=== PATIENT | female | born 2005 | race Caucasian/White ===

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

== ENCOUNTER 2024-03-06 16:43 | Emergency (ER) | payer OTHER, SELFPAY ==
--- NOTE | 2024-03-06 16:53 | XR_ITS ---
PROCEDURE INFORMATION: Exam: XR Right Foot Exam date and time: 03/06/2024 5:19 PM Age: 18 years old Clinical indication: Injury or trauma; Fall; Blunt trauma; Foot; Right TECHNIQUE: Imaging protocol: Radiologic exam of the right foot. Views: 3 or more views. COMPARISON: CR ANKCMRT XR ankle RT min 3V 08/12/2018 11:36 AM FINDINGS: Bones/joints: No acute fracture. Hallux valgus alignment. Minimal calcaneal Achilles enthesopathy. Soft tissues: Dorsal hindfoot/midfoot soft tissue swelling. 2.5 mm thin linear hyperdense focus projecting over the plantar midfoot soft tissues. IMPRESSION: 1. No acute osseous findings. 2. Dorsal hindfoot/midfoot soft tissue swelling. 3. 2.5 mm thin linear hyperdense focus projecting over the plantar midfoot soft tissues, possibly representing a foreign body.
[2024-03-06 16:55] VITALS: BP 117/75; PULSE 82; RESP 16; TEMP 36.8; O2SAT 98; BMI 32.5
--- NOTE | 2024-03-06 16:55 | HMH.EDGENADL ---
Discharge Plan Disposition Patient Disposition: Home, Self-Care Condition: Good Prescriptions Prescriptions: No Action No Known Home Medications Referrals Follow up/Referrals: Mauricio (ED)Vidhya APRN [Primary Care Provider] - See instructions Activity Restrictions/Add. Instructions Additional Instructions/Restrictions: Ice, elevate and use walking boot when up. Please follow-up with your primary care physician for further instructions. Clinical Impressions Clinical Impression: Sprain of foot, right Stand Alone Forms Stand Alone Forms: Work/School Release Instructions Patient Instructions: Sprain Print Language Print Language: Sami Discharge ED Provider: Chad Robles General Adult HPI <Vidhya Martínez (ED), [employer] - Last Filed: 03/06/24 19:25> General Chief complaint: Extremity Injury, Lower Stated complaint: AO 03-06 @1600 fell and hurt right foot Time Seen by Provider: 03/06/24 16:48 History of Present Illness HPI narrative: This is a 18-year-old female who presents to the ED today for complaint of falling when she walked into work. She fell with her right foot underneath of her. She has pain with any movement of her right foot. No ankle pain. Related Data Home Medications ?Medication ?Instructions ?Recorded ?Confirmed No Known Home Medications 06/03/22 06/03/22 Allergies Allergy/AdvReac Type Severity Reaction Status Date / Time No Known Allergies Allergy Verified 03/06/24 17:07 PFSH <Vidhya Martínez (ED), [employer] - Last Filed: 03/06/24 19:25> PFS Disclaimer: The information contained in this section may have been updated after the patient was seen, as this information can be updated by other users. Medical History (Updated 03/06/24 @ 19:12 by Vidhya Martínez (ED), [employer]) Asthma Seasonal allergies Surgical History (Updated 01/24/22 @ 00:32 by Vanesa Ortiz RN) History of adenoidectomy History of tonsillectomy Social History (Updated 06/03/22 @ 09:05 by Elda Cullen) Smoking Status: Never smoker second hand exposure: No alcohol intake: never substance use type: denies use current occupational status: other Travel in the last 8 weeks: None household members: family housing: house number of children: 0 caffeine: Yes Other Medical History Have you received the Flu Vaccine for this season: No Have you received the Pneumonia Vaccine: No <Vidhya Kilkailey (ED), [employer] - Last Filed: 03/06/24 19:25> ROS Obtained: Yes Systems reviewed as appropriate & no additional complaints except as documented Constitutional Constitutional: Reports as per HPI Physical Exam <Vidhya Kilkailey (ED), [employer] - Last Filed: 03/06/24 19:25> General General appearance: alert and in no apparent distress Head Head exam: atraumatic and normocephalic Eye Eye exam: Present normal appearance, PERRL and EOMI ENT ENT exam: Present normal exam, normal oropharynx and mucous membranes moist Neck Neck exam: Present trachea midline Respiratory Respiratory exam: Present normal lung sounds bilaterally Cardiovascular Cardiovascular exam: Present regular rate, normal rhythm, normal heart sounds, +S1 and +S2 Extremities Exam Extremities exam: Present tenderness (Tenderness to right foot) and edema Neurological Exam Neurological exam: Present alert and oriented X3 Skin Skin exam: Present warm, dry, intact and other (Bruising beginning to occur on right foot) Medical Decision Making <Vidhya Martínez (ED), [employer] - Last Filed: 03/06/24 19:25> Medical Records Screening: Per USPSTF and CDC recommendations, given the prevalence of disease in our region, it is our hospital?s policy to screen for HIV and viral Hepatitis for all patients aged 18 and over and those with ongoing risk factors. Abhijeet Inquiry Pt receiving controlled substance: No Abhijeet was queried for this patient: No Vital Signs: 03/06/24 16:55 03/06/24 17:30 03/06/24 18:00 Temperature 98.2 F Temperature Source Oral Pulse Rate 60 63 Pulse Rate [Left] 82 Respiratory Rate 16 Blood Pressure 118/87 126/70 Blood Pressure [Right Arm] 117/75 Blood Pressure Mean 89 Blood Pressure Mean [Right Arm] 89 Blood Pressure Source Blood Pressure Source [Right Arm] Automatic Cuff Blood Pressure Position Blood Pressure Position [Right Arm] Sitting 02 Sat by Pulse Oximetry 98 99 93 L Oxygen Delivery Method Room Air Room Air 03/06/24 18:30 03/06/24 19:15 03/06/24 19:25 Temperature 97.9 F Temperature Source Oral Pulse Rate 67 82 72 Pulse Rate [Left] Respiratory Rate 18 Blood Pressure 124/79 122/74 120/72 Blood Pressure [Right Arm] Blood Pressure Mean Blood Pressure Mean [Right Arm] Blood Pressure Source Automatic Cuff Blood Pressure Source [Right Arm] Blood Pressure Position Supine Blood Pressure Position [Right Arm] 02 Sat by Pulse Oximetry 99 97 Oxygen Delivery Method Room Air Orders (Tests/Meds): ED MEDICATIONS Discontinued Medications Generic Name Dose Route Start Last Admin Trade Name Rand PRN Reason Stop Dose Admin Ibuprofen 800 mg 03/06/24 16:54 03/06/24 17:09 Ibuprofen 800 Mg Tablet PO 03/06/24 16:55 Not Given ONCE ONE Ibuprofen 800 mg 03/06/24 17:09 03/06/24 17:10 Ibuprofen 400 Mg Tablet PO 03/06/24 17:10 800 mg ONCE ONE Administration ORDERS Category Date Time Status XR foot RT min 3V Stat Exams 03/06/24 16:53 Completed Medical Decision Narrative: Insert review patient is a 18-year-old female presenting to the emergency department for evaluation of right foot pain after a fall. Patient is hemodynamically stable and nontoxic-appearing upon arrival, afebrile. Differential diagnosis includes strain sprain of foot. Workup will be conducted with x-ray of right foot. Initial inventions include ibuprofen. Initial workup reviewed by me is remarkable for sprain of foot. Imaging informally interpreted by me and remarkable for no acute fracture of right foot Formal imaging read remarkable for the formal read has not returned yet I will call patient with the formal read once it is back patient no longer wants to wait for this read. Upon repeat evaluation [patient's pain is improved. <Chad Robles MD - Last Filed: 03/06/24 21:24> Vital Signs: 03/06/24 16:55 03/06/24 17:30 03/06/24 18:00 Temperature 98.2 F Temperature Source Oral Pulse Rate 60 63 Pulse Rate [Left] 82 Respiratory Rate 16 Blood Pressure 118/87 126/70 Blood Pressure [Right Arm] 117/75 Blood Pressure Mean 89 Blood Pressure Mean [Right Arm] 89 Blood Pressure Source Blood Pressure Source [Right Arm] Automatic Cuff Blood Pressure Position Blood Pressure Position [Right Arm] Sitting 02 Sat by Pulse Oximetry 98 99 93 L Oxygen Delivery Method Room Air Room Air 03/06/24 18:30 03/06/24 19:15 03/06/24 19:25 Temperature 97.9 F Temperature Source Oral Pulse Rate 67 82 72 Pulse Rate [Left] Respiratory Rate 18 Blood Pressure 124/79 122/74 120/72 Blood Pressure [Right Arm] Blood Pressure Mean Blood Pressure Mean [Right Arm] Blood Pressure Source Automatic Cuff Blood Pressure Source [Right Arm] Blood Pressure Position Supine Blood Pressure Position [Right Arm] 02 Sat by Pulse Oximetry 99 97 Oxygen Delivery Method Room Air Orders (Tests/Meds): ED MEDICATIONS Discontinued Medications Generic Name Dose Route Start Last Admin Trade Name Rand PRN Reason Stop Dose Admin Ibuprofen 800 mg 03/06/24 16:54 03/06/24 17:09 Ibuprofen 800 Mg Tablet PO 03/06/24 16:55 Not Given ONCE ONE Ibuprofen 800 mg 03/06/24 17:09 03/06/24 17:10 Ibuprofen 400 Mg Tablet PO 03/06/24 17:10 800 mg ONCE ONE Administration ORDERS Category Date Time Status XR foot RT min 3V Stat Exams 03/06/24 16:53 Completed Medical Decision Narrative: Insert review patient is a 18-year-old female presenting to the emergency department for evaluation of right foot pain after a fall. Patient is hemodynamically stable and nontoxic-appearing upon arrival, afebrile. Differential diagnosis includes strain sprain of foot. Workup will be conducted with x-ray of right foot. Initial inventions include ibuprofen. Initial workup reviewed by me is remarkable for sprain of foot. Imaging informally interpreted by me and remarkable for no acute fracture of right foot Formal imaging read remarkable for the formal read has not returned yet I will call patient with the formal read once it is back patient no longer wants to wait for this read. Upon repeat evaluation patient's pain is improved. I was consulted by the ELIGIO, and we discussed the complexity of the problems being addressed. I approved the treatment and management plan for this patient's care in the Emergency Department, thus performing a substantive portion of the medical decision making. Chad Robles MD Critical Care <Vidhya Martínez (ED), [employer] - Last Filed: 03/06/24 19:25> Critical Care Time Critical Care Time: No
[2024-03-06] MEDS: IBUPROFEN 400 MG TABLET 800 MG PO (17:10)
[2024-03-06 17:30] VITALS: BP 118/87; PULSE 60; O2SAT 99
[2024-03-06 18:00] VITALS: BP 126/70; PULSE 63; O2SAT 93
[2024-03-06 18:30] VITALS: BP 124/79; PULSE 67; O2SAT 99
[2024-03-06 19:15] VITALS: BP 122/74; PULSE 82; O2SAT 97
[2024-03-06 19:25] VITALS: BP 120/72; PULSE 72; RESP 18; TEMP 36.6; O2SAT 100
== END 2024-03-06 19:33 | disposition home or self-care (01) ==
PROVIDERS: Emergency Provider Emergency Medicine; PCP Nurse Practitioner
DX: S93.601A Unspecified sprain of right foot, initial encounter (principal); M79.671 Pain in right foot; W01.0XXA Fall on same level from slipping, tripping and stumbling without subsequent striking against object, initial encounter; Y93.89 Activity, other specified; Y92.89 Other specified places as the place of occurrence of the external cause
CPT/HCPCS: 73630; 99283

== ENCOUNTER 2024-05-17 23:14 | Emergency (ER) | payer OTHER, SELFPAY ==
[2024-05-17 23:16] VITALS: BP 152/83; PULSE 96; RESP 16; TEMP 36.6; O2SAT 97; BMI 34.4
[2024-05-17 23:30] VITALS: BP 128/78; PULSE 87; O2SAT 97
--- NOTE | 2024-05-17 23:32 | HMH.EDGENADL ---
Discharge Plan Disposition Patient Disposition: Home, Self-Care Prescriptions Prescriptions: No Action No Known Home Medications Referrals Follow up/Referrals: Vidhya Martínez APRN [Primary Care Provider] - See instructions Activity Restrictions/Add. Instructions Additional Instructions/Restrictions: Your COVID and flu was negative, you likely have another virus. Your urine test was negative. Please take Zofran as needed for nausea and vomiting. Please follow-up with your primary care provider. Please return to the emergency department if you develop any new or worsening symptoms or become concerned for your health. Clinical Impressions Clinical Impression: Acute viral syndrome Print Language Print Language: Bulgarian Discharge ED Provider: Kana Lopez General Adult HPI General Chief complaint: Upper Respiratory Infection Stated complaint: congestion,pressure Time Seen by Provider: 05/17/24 23:32 Mode of Arrival: Ambulatory Source of Information: Patient Limitations: No Limitations Description of Symptoms (Recalled from ER Triage Doc. by RN): Patient reports pressure and congestion since yesterday. States she has been nauseous today ad felt like she was going to pass out . No medical problems at baseline. History of Present Illness HPI narrative: 18-year-old female without reported past medical history presents for flulike symptoms since yesterday. She has felt nauseous and has felt presyncopal a few times. She reports she could be . She also reports cough congestion headache fever etc. Related Data Home Medications ?Medication ?Instructions ?Recorded ?Confirmed No Known Home Medications 06/03/22 06/03/22 Allergies Allergy/AdvReac Type Severity Reaction Status Date / Time No Known Allergies Allergy Verified 03/06/24 17:07 [facility] Disclaimer: The information contained in this section may have been updated after the patient was seen, as this information can be updated by other users. Medical History (Updated 05/18/24 @ 00:39 by Kana Lopez MD) Asthma Seasonal allergies Surgical History (Updated 01/24/22 @ 00:32 by Vanesa Ortiz RN) History of adenoidectomy History of tonsillectomy Social History (Updated 06/03/22 @ 09:05 by Elda Cullen) Smoking Status: Never smoker second hand exposure: No alcohol intake: never substance use type: denies use current occupational status: other Travel in the last 8 weeks: None household members: family housing: house number of children: 0 caffeine: Yes Have you lived/traveled outside [place] in past 30 days?: No Contact w/someone who lives/traveled outside [place] past 30 days?: No Exposure to someone with infectious disease in past 14 days?: Yes Do you have a fever (greater than 100.4 F or 38 C)?: No Have you tested positive for COVID-19: No Exposed to someone with COVID-19 in past 14 days?: Yes Do you have a sore throat?: No Do you have a cough?: No Do you have any weakness?: No Do you have any diarrhea?: No Are you experiencing any unusual bleeding?: No Do you have any muscle aches/pain?: No Do you have any abdominal pain?: No Are you experiencing loss of taste or smell?: No Other Medical History Have you received the Flu Vaccine for this season: No Have you received the Pneumonia Vaccine: No ROS Obtained: Yes All systems reviewed & no additional complaints except as documented Physical Exam General General appearance: alert and in no apparent distress Head Head exam: atraumatic and normocephalic Eye Eye exam: Present normal appearance, PERRL and EOMI ENT ENT exam: Present normal oropharynx and normal external ear exam Neck Neck exam: Present normal inspection and full ROM Chest Chest inspection: Present normal inspection and symmetric chest wall rise; Absent tenderness Respiratory Respiratory exam: Present normal lung sounds bilaterally; Absent respiratory distress Cardiovascular Cardiovascular exam: Present regular rate and normal rhythm Abdominal Exam Abdominal exam: Present soft; Absent distention, tenderness or guarding Extremities Exam Extremities exam: Present normal inspection; Absent edema or joint swelling Back Exam Back exam: Present normal inspection; Absent tenderness Neurological Exam Neurological exam: Present alert and oriented X3; Absent motor sensory deficit Psychiatric Psychiatric exam: Present normal affect and normal mood Skin Skin exam: Present warm, dry and normal color Lymphatic Lymphatic Findings: no adenopathy Medical Decision Making Medical Records Medical records reviewed: Yes I reviewed the patient's medical records. Screening: Per USPSTF and CDC recommendations, given the prevalence of disease in our region, it is our hospital?s policy to screen for HIV and viral Hepatitis for all patients aged 18 and over and those with ongoing risk factors. Abhijeet Inquiry Pt receiving controlled substance: No Abhijeet was queried for this patient: No Vital Signs: 05/17/24 23:16 05/17/24 23:30 05/18/24 00:32 Temperature 97.9 F Temperature Source Oral Pulse Rate 87 83 Pulse Rate [Left Radial] 96 H Respiratory Rate 16 Blood Pressure 128/78 125/82 Blood Pressure [Right Arm] 152/83 H Blood Pressure Mean [Right Arm] 106 Blood Pressure Source [Right Arm] Automatic Cuff Blood Pressure Position [Right Arm] Supine 02 Sat by Pulse Oximetry 97 97 99 Oxygen Delivery Method Room Air 05/18/24 00:40 Temperature 98.2 F Temperature Source Pulse Rate 81 Pulse Rate [Left Radial] Respiratory Rate 16 Blood Pressure 125/82 Blood Pressure [Right Arm] Blood Pressure Mean [Right Arm] Blood Pressure Source [Right Arm] Blood Pressure Position [Right Arm] 02 Sat by Pulse Oximetry Oxygen Delivery Method Lab Data Lab results reviewed: Yes I reviewed the patient's lab results. Lab Results 05/17/24 23:32: SARS-CoV-2 (PCR) Not detected, Influenza A Untype (PCR) Not detected, Influenza Type B (PCR) Not detected 05/17/24 23:58: Urine HCG, Qual Negative Orders (Tests/Meds): ORDERS Category Date Time Status Rapid PCR Covid and Flu A/B Stat Lab 05/17/24 23:32 Completed Urine , HCG Qual. Stat Lab 05/17/24 23:58 Completed Medical Decision Narrative: 18-year-old female without significant past medical history presents for flulike symptoms. Also reports she could be . Differential diagnosis includes but limited to flu, URI, tension headache, gastroenteritis. Patient was swabbed for flu and urinalysis was obtained to assess for . On reassessment viral swab is negative as well as urine test. Patient may have gastroenteritis or other viral illness. Patient was discharged in stable condition with prescription for Zofran. Procedures Risk/Benefits of Procedure(s) Were Explained: Yes Critical Care Critical Care Time Critical Care Time: No
[2024-05-17 23:54] LABS: Coronavirus 19, PCR Not Detected (NotDetected); Influenza A, PCR Not Detected (NotDetected); Influenza B, PCR Not Detected (NotDetected)
[2024-05-18 00:14] LABS: Urine Pregnancy, HCG Qual. Negative (Negative)
[2024-05-18 00:32] VITALS: BP 125/82; PULSE 83; O2SAT 99
[2024-05-18 00:40] VITALS: BP 125/82; PULSE 81; RESP 16; TEMP 36.8; O2SAT 99
== END 2024-05-18 00:43 | disposition home or self-care (01) ==
PROVIDERS: Emergency Provider Emergency Medicine; PCP Nurse Practitioner
DX: B34.9 Viral infection, unspecified (principal); R09.81 Nasal congestion; R11.0 Nausea; R55 Syncope and collapse; R05.9 Cough, unspecified; R51.9 Headache, unspecified; R50.9 Fever, unspecified
CPT/HCPCS: 81025; 87636; 99283

== ENCOUNTER 2024-06-07 14:55 | Emergency (ER) | payer OTHER, SELFPAY ==
[2024-06-07 15:10] VITALS: BP 116/74; PULSE 86; RESP 17; TEMP 36.9; O2SAT 99; BMI 38.7
--- NOTE | 2024-06-07 15:26 | EXP.UTC ---
Discharge Plan Disposition Patient Disposition: Home, Self-Care Condition: Good Prescriptions Prescriptions: No Action No Known Home Medications Referrals Follow up/Referrals: Vidhya Martínez APRN [Primary Care Provider] - See instructions Activity Restrictions/Add. Instructions Additional Instructions/Restrictions: GO home lay down and sleep off remainder of migraine headache No Motrin for the next 8 hours if you need something take Tylenol Follow up with your Family Doctor Follow up with OBGYN for further evaluation due to irregular periods Straight to ER if any life threatening symptoms Clinical Impressions Clinical Impression: Headache, migraine Stand Alone Forms Stand Alone Forms: Work/School Release Instructions Patient Instructions: Migraine -- Adult Print Language Print Language: Romansh Discharge ED Provider: Arlin Haley Lucy [facility] HPI General Stated complaint: nausea, headache Mode of Arrival: Ambulatory Source of Information: Patient Limitations: No Limitations Time Seen by Provider: 06/07/24 15:26 Description of Symptoms (Recalled from Triage Doc. by RN): PATIENT C/O HEADACHE WITH NAUSEA THAT STARTED THIS MORNING HEENT Symptoms (Recalled from RN notes): Yes Resp Symptoms (Recalled from RN notes): No Skin Symptoms (Recalled from RN notes): No MS Symptoms (Recalled from RN notes): No Functional Status (Recalled from RN notes): WNL History of Present Illness Provider Complaint: Patient states that she has a hx of migraine headaches States that she woke up this morning with nausea and dry heaving and it brought on a migraine headache States that as the day went on the migraine continued with the nausea so she came in Related Data Home Medications ?Medication ?Instructions ?Recorded ?Confirmed No Known Home Medications 06/03/22 06/03/22 Allergies Allergy/AdvReac Type Severity Reaction Status Date / Time No Known Allergies Allergy Verified 03/06/24 17:07 Worker's Comp Is this a Worker's Comp case?: No [facility] Disclaimer: The information contained in this section may have been updated after the patient was seen, as this information can be updated by other users. Medical History (Updated 06/07/24 @ 15:35 by Arlin Haley APRN) Asthma Seasonal allergies Surgical History (Updated 01/24/22 @ 00:32 by Vanesa Ortiz RN) History of adenoidectomy History of tonsillectomy Social History (Updated 06/03/22 @ 09:05 by Elda Cullen) Smoking Status: Never smoker second hand exposure: No alcohol intake: never substance use type: denies use current occupational status: other Travel in the last 8 weeks: None household members: family housing: house number of children: 0 caffeine: Yes Have you lived/traveled outside [place] in past 30 days?: No Contact w/someone who lives/traveled outside [place] past 30 days?: No Exposure to someone with infectious disease in past 14 days?: No Do you have a fever (greater than 100.4 F or 38 C)?: No Have you tested positive for COVID-19: No Exposed to someone with COVID-19 in past 14 days?: No Do you have a sore throat?: No Do you have a cough?: No Do you have any weakness?: No Do you have any diarrhea?: No Are you experiencing any unusual bleeding?: No Do you have any muscle aches/pain?: No Do you have any abdominal pain?: No Are you experiencing loss of taste or smell?: No ROS Obtained: Yes All systems reviewed & no additional complaints except as documented and Yes Systems reviewed as appropriate & no additional complaints except as documented Constitutional Constitutional: Reports system reviewed and no additional complaints, except as documented, Reports as per HPI and Reports headache(s) Eyes Eyes: Reports system reviewed and no additional complaints, except as documented, Reports as per HPI, Denies blurry vision, Denies eye discharge, Denies floaters, Denies irritation, Denies loss of vision and Denies photophobia ENT Ears, Nose, Mouth, and Throat: Reports system reviewed and no additional complaints, except as documented, Reports as per HPI and Reports headache(s) Cardiovascular Cardiovascular: Reports system reviewed and no additional complaints, except as documented and Reports as per HPI Respiratory Respiratory: Reports system reviewed and no additional complaints, except as documented and Reports as per HPI Gastrointestinal Gastrointestingal: Reports system reviewed and no additional complaints, except as documented, as per HPI and nausea; Denies abdominal pain, cramping, diarrhea or vomiting Musculoskeletal Musculoskeletal: Reports system reviewed and no additional complaints, except as documented and Reports as per HPI Neurologic Neurologic: Reports headache(s) and Denies loss of vision Physical Exam General General appearance: alert and in no apparent distress Eye Eye exam: Present normal appearance, PERRL and EOMI ENT ENT exam: Present normal exam, normal oropharynx, mucous membranes moist and TM's normal bilaterally Respiratory Respiratory exam: Present normal lung sounds bilaterally; Absent respiratory distress or wheezes Cardiovascular Cardiovascular exam: Present regular rate, normal rhythm and normal heart sounds Abdominal Exam Abdominal exam: Present soft and normal bowel sounds; Absent distention or tenderness Neurological Exam Neurological exam: Present alert, oriented X3 and normal gait Medical Decision Making Medical Records Screening: Per USPSTF and CDC recommendations, given the prevalence of disease in our region, it is our hospital?s policy to screen for HIV and viral Hepatitis for all patients aged 18 and over and those with ongoing risk factors. Abhijeet Inquiry Pt receiving controlled substance: No Abhijeet was queried for this patient: No Vital Signs: 06/07/24 15:10 Temperature 98.4 F Temperature Source Oral Pulse Rate [Left Brachial] 86 Respiratory Rate 17 Blood Pressure [Left Arm] 116/74 Blood Pressure Mean [Left Arm] 88 Blood Pressure Source [Left Arm] Automatic Cuff Blood Pressure Position [Left Arm] Sitting 02 Sat by Pulse Oximetry 99 Oxygen Delivery Method Room Air Lab Data Lab results reviewed: Yes I reviewed the patient's lab results. Medical Decision Narrative: Reports migraine is starting to ease off will dc home with strict return precautions
[2024-06-07 15:28] LABS: UTC Pregnancy Test, Urine Negative (Negative)
[2024-06-07] MEDS: KETOROLAC 60MG/2ML VIAL 60 MG IM (15:46)
[2024-06-07] MEDS: ONDANSETRON 4MG ODT 4 MG SL (15:46)
[2024-06-07] MEDS: diphenhydrAMINE 50MG/ML VIAL 25 MG IM (15:46)
[2024-06-07 15:52] VITALS: BP 116/74; PULSE 86; RESP 17; TEMP 36.9; O2SAT 99
== END 2024-06-07 15:55 | disposition home or self-care (01) ==
PROVIDERS: Emergency Provider Nurse Practitioner; PCP Nurse Practitioner
DX: G43.909 Migraine, unspecified, not intractable, without status migrainosus (principal)
CPT/HCPCS: 81025; 99213; G0381; J1200; J1885; Q0162

== ENCOUNTER 2024-06-08 13:39 | Emergency (ER) | payer OTHER, SELFPAY ==
[2024-06-08 14:20] VITALS: BP 127/86; PULSE 90; RESP 18; TEMP 36.8; O2SAT 98; BMI 41.1
--- NOTE | 2024-06-08 14:40 | ED_ITS ---
Discharge Plan Disposition Patient Disposition: Home, Self-Care Condition: Good Prescriptions Prescriptions: New ondansetron 4 mg tablet,disintegrating 4 mg PO Q8H PRN (Reason: nausea and vomiting) Qty: 12 0RF Referrals Follow up/Referrals: Vidhya Martínez APRN [Primary Care Provider] - See instructions Activity Restrictions/Add. Instructions Additional Instructions/Restrictions: Drink extra fluids with and between meals. If you have difficulty drinking, try very small amounts of water or suck on ice chips. ? Avoid fruit juices, as these do not replace minerals and can actually increase diarrhea. ? Children and adults can use sports drinks to replenish electrolytes. Younger children and infants should use products formulated for children, like oral rehydration solutions. ? Eat food in small amounts and let your stomach recover. ? Get lots of rest. You may feel tired or weak. ? No greasy or fried foods for the next 24-48 hours BRAT diet Bananas Rice Apples and [place] ? Make sure to drink plenty of liquids ? Return if needed ? Straight to ER if any life threatening symptoms ? Zofran as prescribed ? Follow up with family doctor in the next 48-72 hours if no improvement or any worsening of symptoms Make sure to follow up with your Family Doctor if your stomach upset continues Clinical Impressions Clinical Impression: Stomach upset Stand Alone Forms Stand Alone Forms: Work/School Release Instructions Patient Instructions: Ondansetron, DI for Dyspepsia Print Language Print Language: Hungarian Discharge ED Provider: Arlin Haley [facility] [place] General Stated complaint: nausea, abd cramps Mode of Arrival: Ambulatory Source of Information: Patient Limitations: No Limitations Time Seen by Provider: 06/08/24 14:41 Description of Symptoms (Recalled from Triage Doc. by RN): PATIENT C/O STOMACH PAIN AND NAUSEA SINCE YESTERDAY MORNING HEENT Symptoms (Recalled from RN notes): No Resp Symptoms (Recalled from RN notes): No Skin Symptoms (Recalled from RN notes): Yes MS Symptoms (Recalled from RN notes): No Functional Status (Recalled from RN notes): WNL History of Present Illness Provider Complaint: Patient states that yesterday she had a migraine with some nausea and she came in and got a couple shots and some nausea medication and it helped States that after the nausea medication wore off the nausea returned but the migraine is still gone, States that her stomach feels upset like she is going to vomit or have diarrhea but she hasnt and was having nausea this morning and was unable to go to work needing a work note, States that she did eat at the [employer] house night before last and woke up in the middle of the night with dry heaves is what brought on her migraine yesterday not sure if she may have eat something bad or what Denies fever, Last BM yesterday Related Data Previous Rx's ?Medication ?Instructions ?Recorded ondansetron 4 mg disintegrating 4 mg PO Q8H PRN nausea and 06/08/24 tablet vomiting #12 tabs Allergies Allergy/AdvReac Type Severity Reaction Status Date / Time No Known Allergies Allergy Verified 03/06/24 17:07 Worker's Comp Is this a Worker's Comp case?: No [facility] Disclaimer: The information contained in this section may have been updated after the patient was seen, as this information can be updated by other users. Medical History (Updated 06/08/24 @ 14:51 by Arlin Haley APRN) Asthma Seasonal allergies Surgical History (Updated 01/24/22 @ 00:32 by Vanesa Ortiz RN) History of adenoidectomy History of tonsillectomy Social History (Updated 06/03/22 @ 09:05 by Elda Cullen) Smoking Status: Never smoker second hand exposure: No alcohol intake: never substance use type: denies use current occupational status: other Travel in the last 8 weeks: None household members: family housing: house number of children: 0 caffeine: Yes Have you lived/traveled outside US in past 30 days?: No Contact w/someone who lives/traveled outside [place] past 30 days?: No Exposure to someone with infectious disease in past 14 days?: No Do you have a fever (greater than 100.4 F or 38 C)?: No Have you tested positive for COVID-19: No Exposed to someone with COVID-19 in past 14 days?: No Do you have a sore throat?: No Do you have a cough?: No Do you have any weakness?: No Do you have any diarrhea?: No Are you experiencing any unusual bleeding?: No Do you have any muscle aches/pain?: No Do you have any abdominal pain?: Yes Are you experiencing loss of taste or smell?: No ROS Obtained: Yes All systems reviewed & no additional complaints except as documented and Yes Systems reviewed as appropriate & no additional complaints except as documented Constitutional Constitutional: Reports system reviewed and no additional complaints, except as documented, Reports as per HPI, Denies body ache, Denies chills and Denies fever(s) Eyes Eyes: Reports system reviewed and no additional complaints, except as documented and Reports as per HPI ENT Ears, Nose, Mouth, and Throat: Reports system reviewed and no additional complaints, except as documented and Reports as per HPI Cardiovascular Cardiovascular: Reports system reviewed and no additional complaints, except as documented and Reports as per HPI Respiratory Respiratory: Reports system reviewed and no additional complaints, except as documented and Reports as per HPI Gastrointestinal Gastrointestingal: Reports system reviewed and no additional complaints, except as documented, as per HPI, cramping and nausea; Denies belching, coffee ground emesis, constipation, diarrhea, early satiety, heartburn, hematemesis, hematochezia, loose stools, reflux or vomiting Genitourinary Female Genitourinary: Reports system reviewed and no additional complaints, exc ept as documented and Reports as per HPI Physical Exam General General appearance: alert and in no apparent distress Respiratory Respiratory exam: Present normal lung sounds bilaterally; Absent respiratory distress or wheezes Cardiovascular Cardiovascular exam: Present regular rate, normal rhythm and normal heart sounds Abdominal Exam Abdominal exam: Present soft and normal bowel sounds; Absent distention, tenderness, guarding or rebound Neurological Exam Neurological exam: Present alert, oriented X3 and normal gait Medical Decision Making Medical Records Screening: Per USPSTF and CDC recommendations, given the prevalence of disease in our region, it is our hospital?s policy to screen for HIV and viral Hepatitis for all patients aged 18 and over and those with ongoing risk factors. Abhijeet Inquiry Pt receiving controlled substance: No Abhijeet was queried for this patient: No Vital Signs: 06/08/24 14:20 Temperature 98.2 F Temperature Source Oral Pulse Rate [Left Brachial] 90 Respiratory Rate 18 Blood Pressure [Left Arm] 127/86 Blood Pressure Mean [Left Arm] 99 Blood Pressure Source [Left Arm] Automatic Cuff Blood Pressure Position [Left Arm] Sitting 02 Sat by Pulse Oximetry 98 Oxygen Delivery Method Room Air Medical Decision Narrative: Urine preg done yesterday and was negative Patient reports has appointment with OBGYN tomorrow, Denies constipation, States that she has been having upset stoma ch with cramping like she is going to vomit or have diarrhea but hasnt had either Discussed with patient that we could transfer her to the ED for further work up and evaluation if she is having stomach pain and she declined States that after she had the medication for nausea in here yesterday her stomach felt better if she could get some of that she would prefer to follow up with her PCP if she doesnt feel any better in a day or so
[2024-06-08 14:53] VITALS: BP 127/86; PULSE 90; RESP 18; TEMP 36.8; O2SAT 98
== END 2024-06-08 14:55 | disposition home or self-care (01) ==
PROVIDERS: Emergency Provider Nurse Practitioner; PCP Nurse Practitioner
DX: K30 Functional dyspepsia (principal)
CPT/HCPCS: 99212; G0381

== ENCOUNTER 2024-06-14 17:21 | Emergency (ER) | payer OTHER, SELFPAY ==
[2024-06-14 17:40] VITALS: BP 132/75; PULSE 77; RESP 16; TEMP 37.1; O2SAT 97; BMI 36.3
--- NOTE | 2024-06-14 18:13 | ED_ITS ---
Discharge Plan Disposition Patient Disposition: Home, Self-Care Prescriptions Prescriptions: New ondansetron 4 mg tablet,disintegrating 4 mg PO Q6H PRN (Reason: nausea and vomiting) Qty: 10 0RF esomeprazole magnesium 20 mg capsule,delayed release(DR/EC) 20 mg PO DAILY 28 Days Qty: 28 0RF No Action ondansetron 4 mg tablet,disintegrating 4 mg PO Q8H PRN (Reason: nausea and vomiting) Qty: 12 0RF Referrals Follow up/Referrals: Vidhya Martínze APRN [Primary Care Provider] - See instructions Activity Restrictions/Add. Instructions Additional Instructions/Restrictions: Call your family doctor to establish care for this visit to the emergency department and schedule follow-up within 48 hours to ensure improvement. If you have any worsening of your condition or any other concerning signs or symptoms, return to the emergency department or your primary care doctor for further evaluation. Acid medication each night. See your family doctor for refills Clinical Impressions Clinical Impression: Abdominal pain, Gastritis Instructions Patient Instructions: DI for Acute Abdominal Pain Print Language Print Language: Malay Discharge ED Provider: Chad Robles General Adult HPI General Chief complaint: Abdominal Pain Stated complaint: vomiting abd pain persistant more than a wk Time Seen by Provider: 06/14/24 17:42 Mode of Arrival: Ambulatory Source of Information: Patient Limitations: No Limitations Description of Symptoms (Recalled from ER Triage Doc. by RN): c/o ABD pain x1wk and N/V x2days History of Present Illness HPI narrative: Please note that above description of symptoms, in this electronic medical record under categorization of recalled from ER triage doctor by RN are reflective of an initial nursing assessment, however, is not reflective of my full history and physical exam that was personally taken and clarified. Consequentially, this preceding description of symptoms, which may include the patient's categorized chief complaint in the EMR, do not reflect my personal clinical impression, and the ultimate description of history of present illness and patient stated complaints should be deferred to this section of the note. Unless stated otherwise or congruent with this section of the note, additional signs, symptoms, or incongruence should be interpreted as inaccurate with my clinical impression. Related Data Previous Rx's ?Medication ?Instructions ?Recorded ondansetron 4 mg disintegrating 4 mg PO Q8H PRN nausea and 06/08/24 tablet vomiting #12 tabs esomeprazole magnesium 20 mg 20 mg PO DAILY 28 days #28 caps 06/14/24 capsule,delayed release ondansetron 4 mg disintegrating 4 mg PO Q6H PRN nausea and 06/14/24 tablet vomiting #10 tabs Allergies Allergy/AdvReac Type Severity Reaction Status Date / Time No Known Allergies Allergy Verified 03/06/24 17:07 [facility] Disclaimer: The information contained in this section may have been updated after the patient was seen, as this information can be updated by other users. Medical History (Updated 06/14/24 @ 20:06 by Chad Robles MD) Asthma Seasonal allergies Surgical History (Updated 01/24/22 @ 00:32 by Vanesa Ortiz RN) History of adenoidectomy History of tonsillectomy Social History (Updated 06/03/22 @ 09:05 by Elda Cullen) Smoking Status: Never smoker second hand exposure: No alcohol intake: never substance use type: denies use current occupational status: other Travel in the last 8 weeks: None household members: family housing: house number of children: 0 caffeine: Yes Have you lived/traveled outside US in past 30 days?: No Contact w/someone who lives/traveled outside US past 30 days?: No Exposure to someone with infectious disease in past 14 days?: No Do you have a fever (greater than 100.4 F or 38 C)?: No Have you tested positive for COVID-19: No Exposed to someone with COVID-19 in past 14 days?: No Do you have a sore throat?: No Do you have a cough?: No Do you have any weakness?: No Do you have any diarrhea?: No Are you experiencing any unusual bleeding?: No Do you have any muscle aches/pain?: No Do you have any abdominal pain?: Yes Are you experiencing loss of taste or smell?: No Other Medical History Have you received the Flu Vaccine for this season: No Have you received the Pneumonia Vaccine: No ROS Obtained: Yes All systems reviewed & no additional complaints except as documented Physical Exam General General appearance: alert, in no apparent distress and obese Comment: Very clinically well, speaking in full sentences, joking around. Head Head exam: atraumatic and normocephalic Eye Eye exam: Present normal appearance, PERRL and EOMI Neck Neck exam: Present normal inspection, full ROM and trachea midline Respiratory Respiratory exam: Absent respiratory distress, wheezes, stridor, accessory muscle use or prolonged expiratory phase Cardiovascular Cardiovascular exam: Present other (Pulses equal symmetric in upper and lower extremities) Abdominal Exam Abdominal exam: Present soft; Absent distention, tenderness, guarding, rebound, rigidity or pulsatile mass Extremities Exam Extremities exam: Absent edema Neurological Exam Neurological exam: Present alert, oriented X3 and CN II-XII intact; Absent motor sensory deficit Skin Skin exam: Present warm and dry; Absent diaphoresis or erythema Medical Decision Making Medical Records Medical records reviewed: Yes I reviewed the patient's medical records. Screening: Per USPSTF and CDC recommendations, given the prevalence of disease in our region, it is our hospital?s policy to screen for HIV and viral Hepatitis for all patients aged 18 and over and those with ongoing risk factors. Abhijeet Inquiry Pt receiving controlled substance: No Abhijeet was queried for this patient: No Vital Signs: 06/14/24 17:40 Temperature 98.7 F Temperature Source Oral Pulse Rate [Right Radial] 77 Respiratory Rate 16 Blood Pressure [Right Arm] 132/75 Blood Pressure Mean [Right Arm] 94 02 Sat by Pulse Oximetry 97 Oxygen Delivery Method Room Air Lab Data Lab Results 06/14/24 18:29: WBC 8.8, RBC 5.24, Hgb 14.7, Hct 44.9, MCV 85.7, MCH 28.1, MCHC 32.7, RDW 13.5, Plt Count 247, MPV 11.3 H, Neut % (Auto) 60.2, Lymph % (Auto) 29.6, [place] % (Auto) 7.2, Eos % (Auto) 2.0, Baso % (Auto) 0.5, Neut # (Auto) 5.3, Lymph # (Auto) 2.6, [place] # (Auto) 0.6, Eos # (Auto) 0.2, Baso # (Auto) 0.0, Sodium 141, Potassium 4.2, Chloride 104, Carbon Dioxide 29, Anion Gap 12.2, BUN 17, Creatinine 0.80, Estimated Creat Clear 188, Estimated GFR 92, Est GFR ( Amer) 112, Glucose 68 L, Calcium 9.9, Magnesium 1.8, Total Bilirubin 0.7, AST 34, ALT 32, Alkaline Phosphatase 72, Total Protein 8.3 H, Albumin 4.8, Globulin 3.5 H, Albumin/Globulin Ratio 1.4, Lipase 85, HCG, Quant < 2 06/14/24 18:46: Urine Color Yellow, Urine Appearance Clear, Urine pH 7.5, Ur Specific [place] 1.020, Urine Protein Negative, Urine Glucose (UA) Negative, Urine Ketones Negative, Urine Blood Trace-i, Urine Nitrate Negative, Urine Bilirubin Negative, Urine Urobilinogen 0.2, Ur Leukocyte Esterase Negative, Urine RBC Occasional, Urine WBC None, Ur Squamous Epith Cells Occasional, Urine Bacteria Trace 06/14/24 18:29 06/14/24 18:29 Orders (Tests/Meds): ED MEDICATIONS Generic Name Dose Route Start Last Admin Trade Name Freq PRN Reason Stop Dose Admin Sodium Chloride 10 ml 06/14/24 17:58 Sodium Chloride 0.9% 10ml Vial IV 07/14/24 17:57 NEEDED PRN dilute protonix Discontinued Medications Generic Name Dose Route Start Last Admin Trade Name Freq PRN Reason Stop Dose Admin Belladonna Alkaloids 60 ml 06/14/24 17:58 06/14/24 18:52 Belladonna Alkaloids 60 Ml Ml PO 06/14/24 17:59 60 ml ONCE ONE Administration Ondansetron HCl 4 mg 06/14/24 18:14 06/14/24 18:52 Ondansetron 4mg/2ml Vial IV 06/14/24 18:15 4 mg ONCE ONE Administration Pantoprazole Sodium 40 mg 06/14/24 17:58 06/14/24 18:52 Pantoprazole 40mg Vial IV 06/14/24 17:59 40 mg ONCE ONE Administration ORDERS Category Date Time Status POCUS Point of Care (ER Only) Stat Exams 06/14/24 17:59 Ordered Complete Blood Count Auto Diff Stat Lab 06/14/24 18:29 Completed Comprehensive Metabolic Panel Stat Lab 06/14/24 18:29 Completed HCG,Quantitative Stat Lab 06/14/24 18:29 Completed Lipase Stat Lab 06/14/24 18:29 Completed Magnesium Stat Lab 06/14/24 18:29 Completed Urinalysis and Microscopic Stat Lab 06/14/24 18:46 Completed Medical Decision Narrative: 18-year-old female presenting with abdominal discomfort and vomiting. States that she started with abdominal discomfort and nausea on the 13th, 7 days prior to this. States that she started having epigastric burning that was worse when she woke up on the , the next day. States that she was feeling generally unwell with p.o. intake. States she is able to tolerate liquids, but solids leave her feeling nauseated. Today, earlier in the day on 06/14, she states that she had 2 episodes of nonbloody, nonbilious vomiting associated with p.o. intake. Came in for further evaluation. No fevers or chills, diarrhea, constipation, vaginal discharge or bleeding, or any other concerns. Patient states that she has not had a menstrual period since December 2023, there is a chance she may be , but unsure with all of her irregular menstrual periods. History was obtained via conversation with patient. On arrival, patient hemodynamically stable, alert, oriented x4, appropriate, GCS 15, moving all extremities spontaneously, pupils equal and reactive to light. Full physical exam performed and significant for obese female, very clinically well and in no acute distress. Speaking in full sentences, joking, laughing. Not actively retching, abdomen is soft, nontender, nondistended on my exam. No tenderness to McBurney's point or Taylor's. No rebound, rigidity, or guarding. No flank tenderness. Differential includes gastroesophageal reflux disease, esophagitis, gastritis, , ectopic , cholecystitis, pancreatitis, less likely small bowel obstruction, perforation, malignancy given patient's incredibly well appearance and clinically normal abdomen. Patient placed on continuous cardiac monitoring and continuous pulse ox with initial blood pressure 132/75, heart rate of 77, saturation 97% on room air. Patient was given GI cocktail, Zofran, Protonix for symptomatic management and correction of underlying abnormalities. Workup independently interpreted and significant for nonactionable CBC or chemistry. hCG negative, lipase negative. Urinalysis without concern for UTI. CT scan was considered, but not deemed necessary after negative workup as well as negative bedside [id number] ultrasound. I performed a bedside [id number] ultrasound and patient has no evidence of cholecystitis, right upper quadrant inflammation, cholelithiasis, or any other acute abnormalities. On repeat evaluation, patient states that she is feeling much better, states that she is having absolutely no symptoms at this time and I feel this is most consistent with gastroesophageal reflux disease or gastritis. Because patient at baseline without signs or symptoms of clinical decompensation, deemed appropriate for discharge. Results were relayed to patient who voiced understanding and were agreeable to outpatient management and follow up. I discussed my clinical impression with patient and answered all questions. At this time, the evidence for any other entities in the differential is insufficient to warrant any further testing or ED observation. This was explained as well. Advisory was given that persistent or worsening symptoms require further evaluation. I confirmed the understanding of this discussion. Trains Dispatcher Supervisor disclaimer Much of this encounter note is an electronic saddle lining stitcher spoken language to printed text. Electronic saddle lining stitcher of the spoken language may permit errors. Although I have reviewed the note, some errors may still exist. Procedures Limited Ultrasound Indication:: Limited RUQ ultrasound Indication: Abdominal pain and vomiting Identified structures: -Gallbladder -Gallbladder wall -Common bile duct -Liver Findings: Sonographic Taylor sign: Absent Gallstones: Absent Sludge: Absent Pericholecystic fluid: Absent Maximal GB wall thickness (mm) (normal is </= 3mm): Normal Common bile duct width (mm) (normal is </= 6mm): Normal Gallbladder width (cm) (normal is < 4cm): Normal Gallbladder length (cm) (normal is < 10cm): Normal Impression: Normal right upper quadrant ultrasound, no evidence of hepatic abnormality or renal abnormality. No stones, negative sonographic Taylor sign, etc. Images were saved to permanent archive The study was technically adequate CPT 66424-67 This study was performed by me, and I personally interpreted all images/videos. Based on my clinical judgement, these images were adequate and not necessitate further imaging. Critical Care Critical Care Time Critical Care Time: No
[2024-06-14 18:46] LABS: Basophils % 0.5 % (0.1-2.0); Eosinophils # 0.2 K/mm3 (0.0-0.4); Hematocrit 44.9 % (37.0-47.0); Hemoglobin 14.7 g/dL (12.2-16.2); Lymphocytes # 2.6 K/mm3 (0.7-4.5); Lymphocytes % 29.6 % (10-50); Mean Corpuscular HGB Conc 32.7 g/dL (31.8-35.4); Mean Corpuscular Hemoglobin 28.1 pg (27.0-31.2); Mean Corpuscular Volume 85.7 fl (81-99); Mean Platelet Volume 11.3 fl (7.4-10.4); Monocytes # 0.6 K/mm3 (0.1-1.0); Monocytes % 7.2 % (1.7-9.3); Neutrophils # 5.3 K/mm3 (1.8-7.8); Neutrophils % 60.2 % (37.0-80.0); Platelet Count 247 K/mm3 (142-424); Red Blood Count 5.24 M/mm3 (4.20-5.40); Red Cell Distribution Width 13.5 % (11.5-17.5); White Blood Count 8.8 K/mm3 (4.5-13.0)
[2024-06-14 18:50] LABS: Microscopic, Urine URINE MICROSCOPIC (MICROSCOPIC)
[2024-06-14 18:51] LABS: Appearance,Urine CLEAR (Clear); Bilirubin,Urine Negative (Negative); Blood, Urine TRACE-I (Negative); Color,Urine YELLOW (Yellow); Glucose,Urine (UA) Negative (Negative); Ketones,Urine Negative (Negative); Leukocyte Esterase,Urine Negative (Negative); Nitrate,Urine Negative (Negative); PH,Urine 7.5 (5.0-8.5); Protein,Urine Negative (Negative); Urobilinogen,Urine 0.2 EU/dl (0.2)
[2024-06-14] MEDS: ONDANSETRON 4MG/2ML VIAL 4 MG IV (18:52)
[2024-06-14] MEDS: PANTOPRAZOLE 40MG VIAL 40 MG IV (18:52)
[2024-06-14] MEDS: BELLADONNA ALKALOIDS 60 ML ML PO (18:52)
[2024-06-14 18:56] LABS: Alanine Aminotransferase 32 U/L (12-78); Albumin Level 4.8 g/dl (3.5-5.0); Albumin/Globulin Ratio 1.4 (1.1-1.8); Alkaline Phosphatase 72 U/L (38-126); Anion Gap 12.2 mEq/L (5-15); Aspartate Amino Transferase 34 U/L (14-36); Bilirubin,Total 0.7 mg/dl (0.2-1.3); Blood Urea Nitrogen 17 mg/dl (7-17); Calcium 9.9 mg/dl (8.4-10.2); Carbon Dioxide 29 mmol/L (22.0-30.0); Chloride 104 mmol/L (98-107); Creatinine Clearance Estimated 188 mL/min (50-200); Estimated Glomerular Filt Rate 92 ml/min (>60); GFR (African American) 112 ML/MIN (>60); Globulin 3.5 g/dL (1.3-3.2); Glucose 68 mg/dl (74-100); Lipase 85 U/L (23-300); Magnesium 1.8 mg/dl (1.6-2.3); Potassium 4.2 mmoL/L (3.5-5.1); Sodium 141 mmol/L (136-145); Total Protein,Serum 8.3 g/dl (6.3-8.2)
[2024-06-14 19:44] LABS: HCG,Quantitative < 2 mIU/ml (0-5.42)
[2024-06-14 19:58] LABS: Bacteria,Urine Trace /lpf; RBC,Urine Occasional #/hpf (0-3); Squamous Epithelial Cell,Urine Occasional #/hpf (0-5)
[2024-06-14 20:17] VITALS: BP 137/86; PULSE 88; RESP 20; TEMP 37.1; O2SAT 97
== END 2024-06-14 20:25 | disposition home or self-care (01) ==
PROVIDERS: Emergency Provider Emergency Medicine; PCP Nurse Practitioner
DX: K29.70 Gastritis, unspecified, without bleeding (principal); R10.13 Epigastric pain; R11.2 Nausea with vomiting, unspecified
CPT/HCPCS: 80053; 81001; 83690; 83735; 84702; 85025; 96374; 96375; 99283; J2405

== ENCOUNTER 2024-07-15 09:12 | Emergency (ER) | payer OTHER, SELFPAY ==
[2024-07-15 09:13] VITALS: BP 136/82; PULSE 81; RESP 16; TEMP 36.8; O2SAT 99; BMI 36.3
--- NOTE | 2024-07-15 09:21 | PC.NURSE ---
Pt ambulatory to restroom without complications.
[2024-07-15 09:23] LABS: Coronavirus 19, PCR Not Detected (NotDetected); Influenza A, PCR Not Detected (NotDetected); Influenza B, PCR Not Detected (NotDetected)
--- NOTE | 2024-07-15 09:34 | HMH.EDGENADL ---
Discharge Plan Disposition Patient Disposition: Home, Self-Care Condition: Good Prescriptions Prescriptions: No Action ondansetron 4 mg tablet,disintegrating 4 mg PO Q6H PRN (Reason: nausea and vomiting) Qty: 10 0RF esomeprazole magnesium 20 mg capsule,delayed release(DR/EC) 20 mg PO DAILY 28 Days Qty: 28 0RF ondansetron 4 mg tablet,disintegrating 4 mg PO Q8H PRN (Reason: nausea and vomiting) Qty: 12 0RF Referrals Follow up/Referrals: Vidhya Martínez APRN [Primary Care Provider] - See instructions Activity Restrictions/Add. Instructions Additional Instructions/Restrictions: No actionable findings were found on your evaluation today. Please follow-up with your primary care provider in the next 3 days for reevaluation. Please follow up with your primary care provider in 2-3 days. Please return to ED if your symptoms worsen, change in location, change in severity, new symptoms develop or if you become concerned for your health. Clinical Impressions Clinical Impression: Concern about current without diagnosis, Tiredness Stand Alone Forms Stand Alone Forms: Work/School Release Print Language Print Language: Greek Discharge ED Provider: Estrellita Edwards General Adult HPI General Chief complaint: Upper Respiratory Infection Stated complaint: body aches, nausea Time Seen by Provider: 07/15/24 09:16 Mode of Arrival: Ambulatory Source of Information: Patient Limitations: No Limitations Description of Symptoms (Recalled from ER Triage Doc. by RN): body aches,weak, possibly ? History of Present Illness HPI narrative: Nash Hartley is a 18-year-old female presenting with multiple complaints. 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 She also had a bout of nausea without vomiting. Patient complains of intermittent episodes of feeling hot and cold. Patient states she does not sleep well during the day. Patient also concerned that she may be due to her last menstrual period being the end of May and vaginal spotting without menstrual cycle yesterday. She has had unprotected sex with no other forms of contraception during this time. Related Data Previous Rx's ?Medication ?Instructions ?Recorded ondansetron 4 mg disintegrating 4 mg PO Q8H PRN nausea and 06/08/24 tablet vomiting #12 tabs esomeprazole magnesium 20 mg 20 mg PO DAILY 28 days #28 caps 06/14/24 capsule,delayed release ondansetron 4 mg disintegrating 4 mg PO Q6H PRN nausea and 06/14/24 tablet vomiting #10 tabs Allergies Allergy/AdvReac Type Severity Reaction Status Date / Time No Known Allergies Allergy Verified 03/06/24 17:07 [facility] Disclaimer: The information contained in this section may have been updated after the patient was seen, as this information can be updated by other users. Medical History (Updated 07/15/24 @ 11:12 by Estrellita Edwards MD) Asthma Seasonal allergies Surgical History (Updated 01/24/22 @ 00:32 by Vanesa Ortiz RN) History of adenoidectomy History of tonsillectomy Social History (Updated 06/03/22 @ 09:05 by Elda Cullen) Smoking Status: Never smoker second hand exposure: No alcohol intake: never substance use type: denies use current occupational status: other Travel in the last 8 weeks: None household members: family housing: house number of children: 0 caffeine: Yes Have you lived/traveled outside [place] in past 30 days?: No Contact w/someone who lives/traveled outside US past 30 days?: No Exposure to someone with infectious disease in past 14 days?: No Do you have a fever (greater than 100.4 F or 38 C)?: No Have you tested positive for COVID-19: No Exposed to someone with COVID-19 in past 14 days?: No Do you have a sore throat?: No Do you have a cough?: No Do you have any weakness?: No Do you have any diarrhea?: No Are you experiencing any unusual bleeding?: No Do you have any muscle aches/pain?: No Do you have any abdominal pain?: No Are you experiencing loss of taste or smell?: No Other Medical History Have you received the Flu Vaccine for this season: No Have you received the Pneumonia Vaccine: No ROS Obtained: Yes All systems reviewed & no additional complaints except as documented Physical Exam General General appearance: alert and in no apparent distress ENT ENT exam: Present normal exam, normal oropharynx, mucous membranes moist, TM's normal bilaterally and normal external ear exam Respiratory Respiratory exam: Present normal lung sounds bilaterally; Absent respiratory distress Cardiovascular Cardiovascular exam: Present regular rate and normal rhythm; Absent JVD Abdominal Exam Abdominal exam: Present soft and normal bowel sounds; Absent distention, tenderness or guarding Extremities Exam Extremities exam: Present normal inspection, full ROM and normal capillary refill; Absent calf tenderness Neurological Exam Neurological exam: Present alert and oriented X3 Psychiatric Psychiatric exam: Present normal affect and normal mood Skin Skin exam: Present warm, dry, intact and normal color Medical Decision Making Medical Records Medical records reviewed: Yes I reviewed the patient's medical records. Screening: Per USPSTF and CDC recommendations, given the prevalence of disease in our region, it is our hospital?s policy to screen for HIV and viral Hepatitis for all patients aged 18 and over and those with ongoing risk factors. Abhijeet Inquiry Pt receiving controlled substance: No Abhijeet was queried for this patient: No Vital Signs: 07/15/24 09:13 07/15/24 10:50 07/15/24 11:00 Temperature 98.3 F Temperature Source Oral Pulse Rate 65 79 Pulse Rate [Right] 81 Respiratory Rate 16 Blood Pressure 130/77 110/62 Blood Pressure [Right Arm] 136/82 Blood Pressure Mean [Right Arm] 100 02 Sat by Pulse Oximetry 99 97 100 Oxygen Delivery Method Room Air Room Air Room Air 07/15/24 11:28 Temperature 98.3 F Temperature Source Pulse Rate 83 Pulse Rate [Right] Respiratory Rate 18 Blood Pressure 132/71 Blood Pressure [Right Arm] Blood Pressure Mean [Right Arm] 02 Sat by Pulse Oximetry Oxygen Delivery Method Room Air Lab Data Lab results reviewed: Yes I reviewed the patient's lab results. Lab Results 07/15/24 09:15: SARS-CoV-2 (PCR) Not detected, Influenza A Untype (PCR) Not detected, Influenza Type B (PCR) Not detected 07/15/24 09:20: TSH 6.11 H, Free T4 1.03, Urine HCG, Qual Negative Orders (Tests/Meds): ORDERS Category Date Time Status Free T4 (Free Thyroxine) Stat Lab 07/15/24 09:20 Completed Rapid PCR Covid and Flu A/B Stat Lab 07/15/24 09:15 Completed TSH [Thyroid Stimulating Hormone] Stat Lab 07/15/24 09:20 Completed Urine , HCG Qual. Stat Lab 07/15/24 09:20 Completed Medical Decision Narrative: In summary, this is a 18-year-old female presenting with multiple complaints. Differential diagnosis includes but is not limited to, influenza, hypothyroid, electrolyte abnormality, implantation, among others. Patient is hemodynamically stable and in no acute distress with vague symptoms and concerns. Discussed possibility of viral URI with the patient given high prevalence in the community and her work exposure. We also discussed that based on her last menstrual period, a urine may not be positive yet. Patient also stated that her mom had thyroid problems and wished to get her thyroid studies checked. Patient had no GI losses or other reasons for electrolyte abnormalities at this time. Will perform TSH, free T4, beta-hCG in the urine and COVID/influenza swab. Patient's thyroid studies are unremarkable. Urine test negative. COVID influenza swab negative. Patient given the findings of her evaluation and advised that if she is still concerned for , she should take a repeat urine test in about 2 weeks based on her last menstrual period. Patient given sleep habit recommendations due to night work. Patient provided a work excuse for tonight given the length of time she had to stay awake today. Patient agreement with plan to follow-up with her PCP in the next week for reevaluation. Patient advised to take vitamins. Patient discharged in stable condition. Estrellita Edwards MD Critical Care Critical Care Time Critical Care Time: No
[2024-07-15 10:09] LABS: Urine Pregnancy, HCG Qual. Negative (Negative)
[2024-07-15 10:27] LABS: Free T4 (Free Thyroxine) 1.03 ng/dl (0.78-2.19)
[2024-07-15 10:31] LABS: Thyroid Stimulating Hormone 6.11 uIU/mL (0.465-4.68)
[2024-07-15 10:50] VITALS: BP 130/77; PULSE 65; O2SAT 97
[2024-07-15 11:00] VITALS: BP 110/62; PULSE 79; O2SAT 100
[2024-07-15 11:28] VITALS: BP 132/71; PULSE 83; RESP 18; TEMP 36.8; O2SAT 100
== END 2024-07-15 11:29 | disposition home or self-care (01) ==
PROVIDERS: Emergency Provider Student in an Organized Health Care Education/Training Program; PCP Nurse Practitioner
DX: R53.83 Other fatigue (principal); R53.1 Weakness; R11.0 Nausea; M79.10 Myalgia, unspecified site; Z71.1 Person with feared health complaint in whom no diagnosis is made
CPT/HCPCS: 81025; 84439; 84443; 87636; 99283

== ENCOUNTER 2024-07-27 22:53 | Emergency (ER) | payer OTHER, SELFPAY ==
[2024-07-27 23:05] VITALS: BP 114/78; PULSE 100; PULSE 114; RESP 18; TEMP 37.1; O2SAT 100; O2SAT 98; BMI 36.3
--- NOTE | 2024-07-27 23:12 | [facility].EDGENADL ---
Discharge Plan Disposition Patient Disposition: Home, Self-Care Condition: Good Prescriptions Prescriptions: No Action ondansetron 4 mg tablet,disintegrating 4 mg PO Q6H PRN (Reason: nausea and vomiting) Qty: 10 0RF esomeprazole magnesium 20 mg capsule,delayed release(DR/EC) 20 mg PO DAILY 28 Days Qty: 28 0RF ondansetron 4 mg tablet,disintegrating 4 mg PO Q8H PRN (Reason: nausea and vomiting) Qty: 12 0RF Referrals Follow up/Referrals: Vidhya Martínez APRN [Primary Care Provider] - See instructions Activity Restrictions/Add. Instructions Additional Instructions/Restrictions: Please follow-up with your primary care provider. Please return to the emergency department if you develop any new or worsening symptoms or become concerned for your health. Yeah I will make any sense to the right Clinical Impressions Clinical Impression: URI (upper respiratory infection) Print Language Print Language: Swedish Discharge ED Provider: Kana Lopez General Adult HPI General Chief complaint: Upper Respiratory Infection Stated complaint: N/V,body aches,fever,sore throat Time Seen by Provider: 07/27/24 23:01 Mode of Arrival: Ambulatory Source of Information: Patient Description of Symptoms (Recalled from ER Triage Doc. by RN): patient reports nausea, fever and body aches since this morning. Temp is currently 98.7. Denies any medical problems. History of Present Illness HPI narrative: 18-year-old female with no reported past medical history presents for flulike illness. She reports mild nausea this morning as well as fever, body aches, sore throat, cough. She took a test today that was negative. She denies any chest pain or significant shortness of breath. Related Data Previous Rx's ?Medication ?Instructions ?Recorded ondansetron 4 mg disintegrating 4 mg PO Q8H PRN nausea and 06/08/24 tablet vomiting #12 tabs esomeprazole magnesium 20 mg 20 mg PO DAILY 28 days #28 caps 06/14/24 capsule,delayed release ondansetron 4 mg disintegrating 4 mg PO Q6H PRN nausea and 06/14/24 tablet vomiting #10 tabs Allergies Allergy/AdvReac Type Severity Reaction Status Date / Time No Known Allergies Allergy Verified 03/06/24 17:07 [facility] Disclaimer: The information contained in this section may have been updated after the patient was seen, as this information can be updated by other users. Medical History (Updated 07/27/24 @ 23:14 by Kana Lopez MD) Asthma Seasonal allergies Surgical History (Updated 01/24/22 @ 00:32 by Vanesa Ortiz RN) History of adenoidectomy History of tonsillectomy Social History (Updated 06/03/22 @ 09:05 by Elda Cullen) Smoking Status: Never smoker second hand exposure: No alcohol intake: never substance use type: denies use current occupational status: other Travel in the last 8 weeks: None household members: family housing: house number of children: 0 caffeine: Yes Have you lived/traveled outside [place] in past 30 days?: No Contact w/someone who lives/traveled outside [place] past 30 days?: No Exposure to someone with infectious disease in past 14 days?: No Do you have a fever (greater than 100.4 F or 38 C)?: Yes Have you tested positive for COVID-19: No Exposed to someone with COVID-19 in past 14 days?: No Do you have a sore throat?: Yes Do you have a cough?: No Do you have any weakness?: No Do you have any diarrhea?: No Are you experiencing any unusual bleeding?: No Do you have any muscle aches/pain?: Yes Do you have any abdominal pain?: No Are you experiencing loss of taste or smell?: No Other Medical History Have you received the Flu Vaccine for this season: No Have you received the Pneumonia Vaccine: No ROS Obtained: Yes All systems reviewed & no additional complaints except as documented Physical Exam General General appearance: alert and in no apparent distress Head Head exam: atraumatic and normocephalic Eye Eye exam: Present normal appearance, PERRL and EOMI ENT ENT exam: Present normal oropharynx and normal external ear exam Neck Neck exam: Present normal inspection and full ROM Chest Chest inspection: Present normal inspection and symmetric chest wall rise; Absent tenderness Respiratory Respiratory exam: Present normal lung sounds bilaterally; Absent respiratory distress Cardiovascular Cardiovascular exam: Present regular rate and normal rhythm Abdominal Exam Abdominal exam: Present soft; Absent distention, tenderness or guarding Extremities Exam Extremities exam: Present normal inspection; Absent edema or joint swelling Back Exam Back exam: Present normal inspection; Absent tenderness Neurological Exam Neurological exam: Present alert and oriented X3; Absent motor sensory deficit Psychiatric Psychiatric exam: Present normal affect and normal mood Skin Skin exam: Present warm, dry and normal color Lymphatic Lymphatic Findings: other (Right cervical lymphadenopathy) Medical Decision Making Medical Records Medical records reviewed: Yes I reviewed the patient's medical records. Screening: Per USPSTF and CDC recommendations, given the prevalence of disease in our region, it is our hospital?s policy to screen for HIV and viral Hepatitis for all patients aged 18 and over and those with ongoing risk factors. Abhijeet Inquiry Pt receiving controlled substance: No Abhijeet was queried for this patient: No Vital Signs: 07/27/24 23:05 07/27/24 23:05 07/27/24 23:22 Temperature 98.7 F 97.9 F Temperature Source Oral Oral Pulse Rate 114 H 94 H Pulse Rate [Right Radial] 100 H Respiratory Rate 18 18 Blood Pressure 128/72 Blood Pressure [Right Arm] 114/78 Blood Pressure Mean [Right Arm] 90 Blood Pressure Source Automatic Cuff Blood Pressure Source [Right Arm] Automatic Cuff Blood Pressure Position Supine Blood Pressure Position [Right Arm] Supine 02 Sat by Pulse Oximetry 100 98 Oxygen Delivery Method Room Air Room Air Lab Data Lab results reviewed: Yes I reviewed the patient's lab results. Lab Results 07/27/24 23:04: SARS-CoV-2 (PCR) Not detected, Influenza A Untype (PCR) Not detected, Influenza Type B (PCR) Not detected Orders (Tests/Meds): ORDERS Category Date Time Status Rapid PCR Covid and Flu A/B Stat Lab 07/27/24 23:04 Completed Medical Decision Narrative: 18-year-old female without significant past medical history presents for flulike illness. History was obtained via interactive discussion with patient, family, chart. On arrival, patient is [afebrile, hemodynamically stable, satting appropriately, alert, oriented x4, GCS 15], moving all extremities spontaneously. Full physical exam performed and significant for clear lungs bilaterally, clear oropharynx, mild lymphadenopathy right cervical Differential includes but is not limited to URI, pneumonia, strep. No evidence of strep throat on exam. Flu swab was sent and patient was discharged with swab pending. On my independent interpretation, swab shows no evidence of COVID or flu. Chest x-ray was considered but deemed necessary given clear lungs on exam. Presentation is most consistent with viral illness. Procedures Risk/Benefits of Procedure(s) Were Explained: Yes Critical Care Critical Care Time Critical Care Time: No
[2024-07-27 23:18] LABS: Coronavirus 19, PCR Not Detected (NotDetected); Influenza A, PCR Not Detected (NotDetected); Influenza B, PCR Not Detected (NotDetected)
[2024-07-27 23:22] VITALS: BP 128/72; PULSE 94; RESP 18; TEMP 36.6
== END 2024-07-27 23:24 | disposition home or self-care (01) ==
PROVIDERS: Emergency Provider Emergency Medicine; PCP Nurse Practitioner
DX: J06.9 Acute upper respiratory infection, unspecified (principal); R50.9 Fever, unspecified; R11.0 Nausea; R05.9 Cough, unspecified; J02.9 Acute pharyngitis, unspecified; M79.10 Myalgia, unspecified site
CPT/HCPCS: 87636; 99283

== ENCOUNTER 2024-07-30 20:37 | Emergency (ER) | payer OTHER, SELFPAY ==
--- NOTE | 2024-07-30 20:49 | ED_ITS ---
Discharge Plan Disposition Patient Disposition: Home, Self-Care Condition: Good Prescriptions Prescriptions: New sulfamethoxazole-trimethoprim [Bactrim DS] 800-160 mg tablet 1 tab PO BID 5 Days Qty: 10 0RF tzujtxpftznghhm-nbjhflisx-DV [Bromfed DM] 2-30-10 mg/5 mL syrup 5 ml PO Q4H PRN (Reason: sinus symptoms) Qty: 118 0RF ondansetron 4 mg tablet,disintegrating 4 mg PO QID PRN (Reason: nausea and vomiting) Qty: 10 0RF No Action ondansetron 4 mg tablet,disintegrating 4 mg PO Q6H PRN (Reason: nausea and vomiting) Qty: 10 0RF esomeprazole magnesium 20 mg capsule,delayed release(DR/EC) 20 mg PO DAILY 28 Days Qty: 28 0RF ondansetron 4 mg tablet,disintegrating 4 mg PO Q8H PRN (Reason: nausea and vomiting) Qty: 12 0RF Referrals Follow up/Referrals: Vidhya Mratínez APRN [Primary Care Provider] - See instructions Activity Restrictions/Add. Instructions Additional Instructions/Restrictions: I have sent Bromfed and Zofran in for your respiratory symptoms. If you have continued new or worsening signs or symptoms follow-up with your PCP next week or return to the ER as needed. I have started you on Bactrim for your urinary tract infection. If you have continued new or worsening signs or symptoms follow-up with your PCP within 48 hours or return to the ER as needed. Clinical Impressions Clinical Impression: Respiratory tract infection Urinary tract infection Qualifiers: Urinary tract infection type: site unspecified Hematuria presence: without hematuria Qualified Code(s): N39.0 - Urinary tract infection, site not specified Print Language Print Language: Estonian Discharge ED Provider: Chad Robles General Adult HPI <MUSHTAQ Mckeon - Last Filed: 07/30/24 22:16> General Chief complaint: Upper Respiratory Infection Stated complaint: nausea, cough, [place], [place] Time Seen by Provider: 07/30/24 20:49 History of Present Illness HPI narrative: Patient presents for evaluation of cough congestion headache myalgias. Patient was seen Friday swabbed for COVID and flu and discharged home. However her COVID and flu were negative but patient has had worsening symptoms since. She still has persistent headache nausea vomiting no diarrhea body aches and fatigue. Related Data Previous Rx's ?Medication ?Instructions ?Recorded ondansetron 4 mg disintegrating 4 mg PO Q8H PRN nausea and 06/08/24 tablet vomiting #12 tabs esomeprazole magnesium 20 mg 20 mg PO DAILY 28 days #28 caps 06/14/24 capsule,delayed release ondansetron 4 mg disintegrating 4 mg PO Q6H PRN nausea and 06/14/24 tablet vomiting #10 tabs jylcankmaxmizst-zgbkjwfkdihfivm-QV 5 ml PO Q4H PRN sinus symptoms 07/30/24 2 mg-30 mg-10 mg/5 mL oral syrup #118 mL (Bromfed DM) ondansetron 4 mg disintegrating 4 mg PO QID PRN nausea and 07/30/24 tablet vomiting #10 tabs sulfamethoxazole 800 1 tab PO BID 5 days #10 tabs 07/30/24 mg-trimethoprim 160 mg tablet (Bactrim DS) Allergies Allergy/AdvReac Type Severity Reaction Status Date / Time No Known Allergies Allergy Verified 03/06/24 17:07 [facility] <MUSHTAQ Mckeon - Last Filed: 07/30/24 22:16> [facility] Disclaimer: The information contained in this section may have been updated after the patient was seen, as this information can be updated by other users. Medical History (Updated 07/30/24 @ 22:16 by MUSHTAQ Mckeon) Asthma Seasonal allergies Surgical History (Updated 01/24/22 @ 00:32 by Vanesa Ortiz RN) History of adenoidectomy History of tonsillectomy Social History (Updated 06/03/22 @ 09:05 by Elda Cullen) Smoking Status: Never smoker second hand exposure: No alcohol intake: never substance use type: denies use current occupational status: other Travel in the last 8 weeks: None household members: family housing: house number of children: 0 caffeine: Yes Have you lived/traveled outside [place] in past 30 days?: No Contact w/someone who lives/traveled outside US past 30 days?: No Exposure to someone with infectious disease in past 14 days?: No Do you have a fever (greater than 100.4 F or 38 C)?: No Have you tested positive for COVID-19: No Exposed to someone with COVID-19 in past 14 days?: No Do you have a sore throat?: No Do you have a cough?: Yes Do you have any weakness?: No Do you have any diarrhea?: No Are you experiencing any unusual bleeding?: No Do you have any muscle aches/pain?: No Do you have any abdominal pain?: No Are you experiencing loss of taste or smell?: No Other Medical History Have you received the Flu Vaccine for this season: No Have you received the Pneumonia Vaccine: No <MUSHTAQ Mckeon - Last Filed: 07/30/24 22:16> ROS Obtained: Yes Systems reviewed as appropriate & no additional complaints except as documented Physical Exam <MUSHTAQ Mckeon - Last Filed: 07/30/24 22:16> General General appearance: alert and in no apparent distress Respiratory Respiratory exam: Present normal lung sounds bilaterally Cardiovascular Cardiovascular exam: Present regular rate Neurological Exam Neurological exam: Present alert and oriented X3 Medical Decision Making <MUSHTAQ Mckeon - Last Filed: 07/30/24 22:16> Medical Records Medical records reviewed: Yes I reviewed the patient's medical records. Screening: Per USPSTF and CDC recommendations, given the prevalence of disease in our region, it is our hospital?s policy to screen for HIV and viral Hepatitis for all patients aged 18 and over and those with ongoing risk factors. Abhijeet Inquiry Pt receiving controlled substance: No Vital Signs: 07/30/24 21:06 07/30/24 22:58 Temperature 98.6 F 97.9 F Temperature Source Oral Oral Pulse Rate 74 Pulse Rate [Right Brachial] 90 Respiratory Rate 20 16 Blood Pressure 128/72 Blood Pressure [Right Arm] 130/81 Blood Pressure Mean [Right Arm] 97 Blood Pressure Source Automatic Cuff Blood Pressure Source [Right Arm] Automatic Cuff Blood Pressure Position Supine Blood Pressure Position [Right Arm] Sitting 02 Sat by Pulse Oximetry 100 Oxygen Delivery Method Room Air Room Air Lab Data Lab results reviewed: Yes I reviewed the patient's lab results. Lab Results 07/30/24 21:15: WBC 9.3, RBC 4.67, Hgb 12.8, Hct 40.2, MCV 86.1, MCH 27.4, MCHC 31.8, RDW 13.0, Plt Count 255, MPV 11.2 H, Neut % (Auto) 60.0, Lymph % (Auto) 28.6, [place] % (Auto) 8.8, Eos % (Auto) 1.3, Baso % (Auto) 0.4, Neut # (Auto) 5.6, Lymph # (Auto) 2.7, [place] # (Auto) 0.8, Eos # (Auto) 0.1, Baso # (Auto) 0.0, Sodium 140, Potassium 3.8, Chloride 105, Carbon Dioxide 31 H, Anion Gap 7.8, BUN 14, Creatinine 0.70, Estimated Creat Clear 215, Estimated GFR 108, Est GFR ( Amer) 130, Glucose 99, Calcium 9.6, Total Bilirubin 0.3, AST 28, ALT 23, Alkaline Phosphatase 58, Total Protein 7.3, Albumin 4.5, Globulin 2.8, Albumin/Globulin Ratio 1.6, Urine Color Yellow, Urine Appearance Clear, Urine pH 7.0, Ur Specific [place] 1.020, Urine Protein Negative, Urine Glucose (UA) Negative, Urine Ketones Negative, Urine Blood Negative, Urine Nitrate Negative, Urine Bilirubin Negative, Urine Urobilinogen 0.2, Ur Leukocyte Esterase Trace, Urine RBC 5-10, Urine WBC 20-50, Ur Squamous Epith Cells 20-50, Urine Bacteria 3+, Urine HCG, Qual Negative, Chlamy pneumoniae PCR Not detected, Adenovirus (PCR) Not detected, B. pertussis DNA (PCR) Not detected, Coronavirus OC43 (PCR) Not detected, Coronavirus HKU1 (PCR) Not detected, Coronavirus 229E (PCR) Not detected, SARS-CoV-2 (PCR) Not detected, Coronavirus NL63 (PCR) Not detected, HCV Ab OCTAVIANO w/Rflx PCR Qn Negative, HIV Ag/Ab Combo Qual Negative, Human Metapneumovir PCR Not detected, Influenza A (H1) PCR Not detected, Influ A (H1N1/09) PCR Not detected, Influenza A (H3) PCR Not detected, Influenza Type A (PCR) Not detected, Influenza Type B (PCR) Not detected, M. pneumoniae (PCR) Not detected, Parainfluenza 1 (PCR) Not detected, Parainfluenza 2 (PCR) Not detected, Parainfluenza 3 (PCR) Not detected, Parainfluenza 4 (PCR) Not detected, RSV (PCR) Not detected, Entero/Rhino (PCR) Not detected 03/07/25 21:15 07/30/24 21:15 Orders (Tests/Meds): ED MEDICATIONS Discontinued Medications Generic Name Dose Route Start Last Admin Trade Name Rand PRN Reason Stop Dose Admin Acetaminophen 1,000 mg 07/30/24 20:49 07/30/24 22:19 Acetaminophen 500mg Tab PO 07/30/24 20:50 1,000 mg ONCE ONE Administration Sodium Chloride 1,000 mls @ 999 mls/hr 07/30/24 20:53 07/30/24 22:18 Sod Chlor 0.9% 1000ml Bag IV 07/30/24 21:53 999 mls/hr .Q1H1M ONE Administration Ketorolac Tromethamine 15 mg 07/30/24 20:53 07/30/24 22:18 Ketorolac 30mg/Ml Vial IV 07/30/24 20:54 15 mg ONCE ONE Administration Ondansetron HCl 4 mg 07/30/24 20:49 07/30/24 22:17 Ondansetron 4mg/2ml Vial IV 07/30/24 20:50 4 mg ONCE ONE Administration Trimethoprim/Sulfamethoxazole 1 each 07/30/24 22:16 07/30/24 22:20 Sulfa/Trimethoprim 1 Tablet PO 07/30/24 22:17 1 each ONCE ONE Administration ORDERS Category Date Time Status Chest XR 2 view (NOT portable) [XR chest 2V] Stat Exams 07/30/24 20:54 Completed CBC w/Auto Diff [Complete Blood Count Auto Diff] Stat Lab 07/30/24 21:15 Completed CMP [Comprehensive Metabolic Panel] Stat Lab 07/30/24 21:15 Completed Full Resp Panel w/COVID ([facility]) Routine Lab 07/30/24 21:15 Completed HIV Combo Routine Lab 07/30/24 21:15 Completed Hepatitis C Ab Qual. W/ RFX Routine Lab 07/30/24 21:15 Completed UA [Urinalysis and Microscopic] Stat Lab 07/30/24 21:15 Completed Urine , HCG Qual. Stat Lab 07/30/24 21:15 Completed Urine Culture Stat Micro 07/30/24 21:15 Received Medical Decision Narrative: In summary patient is a 18-year-old female who presents to the emergency department for evaluation of headache body aches cough and congestion nausea vomiting. Patient is hemodynamically stable upon arrival, afebrile. Zickel exam is remarkable for nasal tone to her voice, boggy nasal mucosa with congestion, erythematous posterior pharynx without exudate, clear breath sounds without adventitious sounds or increased work of breathing accessory muscle use, soft abdomen without rebound or guarding or rigidity normal bowel sounds.. Differential diagnosis includes upper or lower respiratory tract infection versus gastroenteritis. Initial workup will be conducted with hematologic labs urinalysis full respiratory swab plain, chest x-ray. Initial interventions include crystalloid bolus Toradol Tylenol Zofran. Initial workup shows that her white count is normal with no neutrophilic shift and the remainder of her hematologic labs are nonactionable urinalysis shows that her microscopic exam has 5-10 red cells 20-50 white cells 20-50 epithelial cells which could be contamination and also 3+ bacteria but this could be consistent with urinary tract infection and contributing to her symptoms. My informal TURB Tatian of her plain film chest x-ray shows no acute processes. Full respiratory panel is pending. Given this patient is appropriate for discharge with a prescription for Bactrim and symptomatic treatment and patient notified to check the portal for the full results of her respiratory panel but it will not change booth attendant. I have also sent Zofran and Bromfed into her pharmacy. Patient follow-up with her PCP for continued new or worsening signs or symptoms. <Chad Robles MD - Last Filed: 07/30/24 23:58> Vital Signs: 07/30/24 21:06 07/30/24 22:58 Temperature 98.6 F 97.9 F Temperature Source Oral Oral Pulse Rate 74 Pulse Rate [Right Brachial] 90 Respiratory Rate 20 16 Blood Pressure 128/72 Blood Pressure [Right Arm] 130/81 Blood Pressure Mean [Right Arm] 97 Blood Pressure Source Automatic Cuff Blood Pressure Source [Right Arm] Automatic Cuff Blood Pressure Position Supine Blood Pressure Position [Right Arm] Sitting 02 Sat by Pulse Oximetry 100 Oxygen Delivery Method Room Air Room Air Lab Data Lab Results 07/30/24 21:15: WBC 9.3, RBC 4.67, Hgb 12.8, Hct 40.2, MCV 86.1, MCH 27.4, MCHC 31.8, RDW 13.0, Plt Count 255, MPV 11.2 H, Neut % (Auto) 60.0, Lymph % (Auto) 28.6, [place] % (Auto) 8.8, Eos % (Auto) 1.3, Baso % (Auto) 0.4, Neut # (Auto) 5.6, Lymph # (Auto) 2.7, [place] # (Auto) 0.8, Eos # (Auto) 0.1, Baso # (Auto) 0.0, Sodium 140, Potassium 3.8, Chloride 105, Carbon Dioxide 31 H, Anion Gap 7.8, BUN 14, Creatinine 0.70, Estimated Creat Clear 215, Estimated GFR 108, Est GFR ( Amer) 130, Glucose 99, Calcium 9.6, Total Bilirubin 0.3, AST 28, ALT 23, Alkaline Phosphatase 58, Total Protein 7.3, Albumin 4.5, Globulin 2.8, Albumin/Globulin Ratio 1.6, Urine Color Yellow, Urine Appearance Clear, Urine pH 7.0, Ur Specific [place] 1.020, Urine Protein Negative, Urine Glucose (UA) Negative, Urine Ketones Negative, Urine Blood Negative, Urine Nitrate Negative, Urine Bilirubin Negative, Urine Urobilinogen 0.2, Ur Leukocyte Esterase Trace, Urine RBC 5-10, Urine WBC 20-50, Ur Squamous Epith Cells 20-50, Urine Bacteria 3+, Urine HCG, Qual Negative, Chlamy pneumoniae PCR Not detected, Adenovirus (PCR) Not detected, B. pertussis DNA (PCR) Not detected, Coronavirus OC43 (PCR) Not detected, Coronavirus HKU1 (PCR) Not detected, Coronavirus 229E (PCR) Not detected, SARS-CoV-2 (PCR) Not detected, Coronavirus NL63 (PCR) Not detected, HCV Ab OCTAVIANO w/Rflx PCR Qn Negative, HIV Ag/Ab Combo Qual Negative, Human Metapneumovir PCR Not detected, Influenza A (H1) PCR Not detected, Influ A (H1N1/09) PCR Not detected, Influenza A (H3) PCR Not detected, Influenza Type A (PCR) Not detected, Influenza Type B (PCR) Not detected, M. pneumoniae (PCR) Not detected, Parainfluenza 1 (PCR) Not detected, Parainfluenza 2 (PCR) Not detected, Parainfluenza 3 (PCR) Not detected, Parainfluenza 4 (PCR) Not detected, RSV (PCR) Not detected, Entero/Rhino (PCR) Not detected Orders (Tests/Meds): ED MEDICATIONS Discontinued Medications Generic Name Dose Route Start Last Admin Trade Name Rand PRN Reason Stop Dose Admin Acetaminophen 1,000 mg 07/30/24 20:49 07/30/24 22:19 Acetaminophen 500mg Tab PO 07/30/24 20:50 1,000 mg ONCE ONE Administration Sodium Chloride 1,000 mls @ 999 mls/hr 07/30/24 20:53 07/30/24 22:18 Sod Chlor 0.9% 1000ml Bag IV 07/30/24 21:53 999 mls/hr .Q1H1M ONE Administration Ketorolac Tromethamine 15 mg 07/30/24 20:53 07/30/24 22:18 Ketorolac 30mg/Ml Vial IV 07/30/24 20:54 15 mg ONCE ONE Administration Ondansetron HCl 4 mg 07/30/24 20:49 07/30/24 22:17 Ondansetron 4mg/2ml Vial IV 07/30/24 20:50 4 mg ONCE ONE Administration Trimethoprim/Sulfamethoxazole 1 each 07/30/24 22:16 07/30/24 22:20 Sulfa/Trimethoprim 1 Tablet PO 07/30/24 22:17 1 each ONCE ONE Administration ORDERS Category Date Time Status Chest XR 2 view (NOT portable) [XR chest 2V] Stat Exams 07/30/24 20:54 Completed CBC w/Auto Diff [Complete Blood Count Auto Diff] Stat Lab 07/30/24 21:15 Completed CMP [Comprehensive Metabolic Panel] Stat Lab 07/30/24 21:15 Completed Full Resp Panel w/COVID ([facility]) Routine Lab 07/30/24 21:15 Completed HIV Combo Routine Lab 07/30/24 21:15 Completed Hepatitis C Ab Qual. W/ RFX Routine Lab 07/30/24 21:15 Completed UA [Urinalysis and Microscopic] Stat Lab 07/30/24 21:15 Completed Urine , HCG Qual. Stat Lab 07/30/24 21:15 Completed Urine Culture Stat Micro 07/30/24 21:15 Received Medical Decision Narrative: In summary patient is a 18-year-old female who presents to the emergency department for evaluation of headache body aches cough and congestion nausea vomiting. Patient is hemodynamically stable upon arrival, afebrile. Zickel exam is remarkable for nasal tone to her voice, boggy nasal mucosa with congestion, erythematous posterior pharynx without exudate, clear breath sounds without adventitious sounds or increased work of breathing accessory muscle use, soft abdomen without rebound or guarding or rigidity normal bowel sounds.. Differential diagnosis includes upper or lower respiratory tract infection versus gastroenteritis. Initial workup will be conducted with hematologic labs urinalysis full respiratory swab plain, chest x-ray. Initial interventions include crystalloid bolus Toradol Tylenol Zofran. Initial workup shows that her white count is normal with no neutrophilic shift and the remainder of her hematologic labs are nonactionable urinalysis shows that her microscopic exam has 5-10 red cells 20-50 white cells 20-50 epithelial cells which could be contamination and also 3+ bacteria but this could be consistent with urinary tract infection and contributing to her symptoms. My informal TURB Tatian of her plain film chest x-ray shows no acute processes. Full respiratory panel is pending. Given this patient is appropriate for discharge with a prescription for Bactrim and symptomatic treatment and patient notified to check the portal for the full results of her respiratory panel but it will not change booth attendant. I have also sent Zofran and Bromfed into her pharmacy. Patient follow-up with her PCP for continued new or worsening signs or symptoms. I was consulted by the ELIGIO, and we discussed the complexity of the problems being addressed. I approved the treatment and management plan for this patient's care in the Emergency Department, thus performing a substantive portion of the medical decision making. Chad Robles MD Critical Care <MUSHTAQ Mckeon - Last Filed: 07/30/24 22:16> Critical Care Time Critical Care Time: No
--- NOTE | 2024-07-30 20:54 | XR_ITS ---
PROCEDURE INFORMATION: Exam: XR Chest Exam date and time: 07/30/2024 9:45 PM Age: 18 years old Clinical indication: Cough; Additional info: Cough congestion TECHNIQUE: Imaging protocol: Radiologic exam of the chest. Views: 2 views. COMPARISON: CR XR CHEST 2V 08/06/2022 8:03 PM FINDINGS: Lungs: Unremarkable. No consolidation. Pleural spaces: Unremarkable. No pleural effusion. No pneumothorax. Heart/Mediastinum: Unremarkable. No cardiomegaly. Bones/joints: Unremarkable. IMPRESSION: No acute findings.
[2024-07-30 21:06] VITALS: BP 130/81; PULSE 90; RESP 20; TEMP 37; O2SAT 100; BMI 36.3
--- NOTE | 2024-07-30 21:09 | PC.NURSE ---
Pt awake alert and oriented Skin pink warm and dry Resp full and easy Speech clear and appropriate
[2024-07-30 21:36] LABS: Adenovirus,PCR Not Detected (NotDetected); Bordetella Pertussis Not Detected (NotDetected); Chlamydophila Pneumoniae, PCR Not Detected (NotDetected); Coronavirus 19, PCR Not Detected (NotDetected); Coronavirus 229E Not Detected (NotDetected); Coronavirus NL63 Not Detected (NotDetected); Coronavirus OC43 Not Detected (NotDetected); Coronovirus HKU1,PCR Not Detected (NotDetected); Human Metapneumovirus Not Detected (NotDetected); Influenza A, PCR Not Detected (NotDetected); Influenza AH1, 2009 Not Detected (NotDetected); Influenza AH1, PCR Not Detected (NotDetected); Influenza AH3,PCR Not Detected (NotDetected); Influenza B, PCR Not Detected (NotDetected); Microscopic, Urine URINE MICROSCOPIC (MICROSCOPIC); Mycoplasma Pneumoniae, PCR Not Detected (NotDetected); Parainfluenza 1, PCR Not Detected (NotDetected); Parainfluenza 2, PCR Not Detected (NotDetected); Parainfluenza 3, PCR Not Detected (NotDetected); Parainfluenza 4, PCR Not Detected (NotDetected); Respiratory Syncytial Virus Not Detected (NotDetected); Rhinovirus/Enterovirus Not Detected (NotDetected)
[2024-07-30 21:40] LABS: Basophils % 0.4 % (0.1-2.0); Eosinophils # 0.1 K/mm3 (0.0-0.4); Eosinophils % 1.3 % (0.1-12.0); Hematocrit 40.2 % (37.0-47.0); Hemoglobin 12.8 g/dL (12.2-16.2); Lymphocytes # 2.7 K/mm3 (0.7-4.5); Lymphocytes % 28.6 % (10-50); Mean Corpuscular HGB Conc 31.8 g/dL (31.8-35.4); Mean Corpuscular Hemoglobin 27.4 pg (27.0-31.2); Mean Corpuscular Volume 86.1 fl (81-99); Mean Platelet Volume 11.2 fl (7.4-10.4); Monocytes # 0.8 K/mm3 (0.1-1.0); Monocytes % 8.8 % (1.7-9.3); Neutrophils # 5.6 K/mm3 (1.8-7.8); Platelet Count 255 K/mm3 (142-424); Red Blood Count 4.67 M/mm3 (4.20-5.40); White Blood Count 9.3 K/mm3 (4.5-13.0)
[2024-07-30 21:41] LABS: Albumin Level 4.5 g/dl (3.5-5.0); Appearance,Urine CLEAR (Clear); Bilirubin,Urine Negative (Negative); Blood, Urine Negative (Negative); Chloride 105 mmol/L (98-107); Color,Urine YELLOW (Yellow); Glucose,Urine (UA) Negative (Negative); Ketones,Urine Negative (Negative); Leukocyte Esterase,Urine TRACE (Negative); Nitrate,Urine Negative (Negative); Potassium 3.8 mmoL/L (3.5-5.1); Protein,Urine Negative (Negative); Sodium 140 mmol/L (136-145); Urobilinogen,Urine 0.2 EU/dl (0.2)
[2024-07-30 21:44] LABS: Alanine Aminotransferase 23 U/L (12-78); Albumin/Globulin Ratio 1.6 (1.1-1.8); Alkaline Phosphatase 58 U/L (38-126); Anion Gap 7.8 mEq/L (5-15); Aspartate Amino Transferase 28 U/L (14-36); Bilirubin,Total 0.3 mg/dl (0.2-1.3); Blood Urea Nitrogen 14 mg/dl (7-17); Carbon Dioxide 31 mmol/L (22.0-30.0); Creatinine Clearance Estimated 215 mL/min (50-200); Estimated Glomerular Filt Rate 108 ml/min (>60); GFR (African American) 130 ML/MIN (>60); Globulin 2.8 g/dL (1.3-3.2); Total Protein,Serum 7.3 g/dl (6.3-8.2)
[2024-07-30 21:45] LABS: Calcium 9.6 mg/dl (8.4-10.2); Glucose 99 mg/dl (74-100)
[2024-07-30 21:47] LABS: Urine Pregnancy, HCG Qual. Negative (Negative)
[2024-07-30 21:54] LABS: Bacteria,Urine 3+ /lpf; Squamous Epithelial Cell,Urine 20-50 #/hpf (0-5); WBC,Urine 20-50 #/hpf (0-3)
[2024-07-30] MEDS: ONDANSETRON 4MG/2ML VIAL 4 MG IV (22:17)
[2024-07-30] MEDS: KETOROLAC 30MG/ML VIAL 15 MG IV (22:18)
[2024-07-30] MEDS: 0.9 % SODIUM CHLORIDE 1000ML 1,000 ML 999 ML IV (22:18)
[2024-07-30] MEDS: ACETAMINOPHEN 500MG TAB 1000 MG PO (22:19)
[2024-07-30] MEDS: SULFA/TRIMETHOPRIM 1 TABLET 1 EACH PO (22:20)
[2024-07-30 22:37] LABS: HIV Combo NEGATIVE (Negative)
[2024-07-30 22:45] LABS: Hepatitis C Ab Qual. W/ RFX NEGATIVE (Negative)
[2024-07-30 22:58] VITALS: BP 128/72; PULSE 74; RESP 16; TEMP 36.6; O2SAT 98
== END 2024-07-30 22:59 | disposition home or self-care (01) ==
PROVIDERS: Physician Assistant; Emergency Provider Emergency Medicine; PCP Nurse Practitioner
DX: N39.0 Urinary tract infection, site not specified (principal)
CPT/HCPCS: 71046; 80053; 81001; 81025; 85025; 86803; 87086; 87389; 87633; 96374; 96375; 99284; J1885; J2405; J7030

== ENCOUNTER 2024-09-16 18:22 | Emergency (ER) | payer OTHER, SELFPAY ==
[2024-09-16 18:32] VITALS: BP 157/82; PULSE 107; RESP 16; TEMP 36.9; O2SAT 16; BMI 39.1
--- NOTE | 2024-09-16 18:40 | PC.NURSE ---
Jason Razo did a FSBS and the result was 104 on this pt
--- NOTE | 2024-09-16 18:42 | ECG_ITS ---
APPROVED REPORT Exam: Resting ECG HR:97 bpm ECG Measurements Heart Rate 97 AXES MO 144 P 37 QRSd 83 QRS 48 QT 332 T 12 QTc 387 Conclusion SINUS RHYTHM NORMAL ECG UNCONFIRMED REPORT Electronically signed by : Jose Parker, 09/16/2024 22:57:19
[2024-09-16 18:44] LABS: POC Glucose,Bedside 104 (70-110)
[2024-09-16 19:01] LABS: Microscopic, Urine URINE MICROSCOPIC (MICROSCOPIC)
[2024-09-16 19:03] LABS: Bilirubin,Urine Negative (Negative); Blood, Urine Negative (Negative); Glucose,Urine (UA) Negative (Negative); Ketones,Urine Negative (Negative); Leukocyte Esterase,Urine Negative (Negative); Nitrate,Urine Negative (Negative); Protein,Urine Negative (Negative); Specific Gravity, Urine >= 1.030 (1.005-1.030); Urobilinogen,Urine 0.2 EU/dl (0.2)
--- NOTE | 2024-09-16 19:03 | ED_ITS ---
Discharge Plan Disposition Patient Disposition: Home, Self-Care Prescriptions Prescriptions: No Action ondansetron 4 mg tablet,disintegrating 4 mg PO Q6H PRN (Reason: nausea and vomiting) Qty: 10 0RF esomeprazole magnesium 20 mg capsule,delayed release(DR/EC) 20 mg PO DAILY 28 Days Qty: 28 0RF ondansetron 4 mg tablet,disintegrating 4 mg PO Q8H PRN (Reason: nausea and vomiting) Qty: 12 0RF sulfamethoxazole-trimethoprim [Bactrim DS] 800-160 mg tablet 1 tab PO BID 5 Days Qty: 10 0RF tencujbgkmznebf-vscppacjg-OZ [Bromfed DM] 2-30-10 mg/5 mL syrup 5 ml PO Q4H PRN (Reason: sinus symptoms) Qty: 118 0RF ondansetron 4 mg tablet,disintegrating 4 mg PO QID PRN (Reason: nausea and vomiting) Qty: 10 0RF Referrals Follow up/Referrals: Jaymie Wakefield DO [Staff Physician] - See instructions Vidhya Martínez APRN [Primary Care Provider] - See instructions Alton Gaspar MD [Staff Physician] - See instructions Activity Restrictions/Add. Instructions Additional Instructions/Restrictions: No emergent medical condition identified regarding your near passing out symptoms today. I do recommend you follow-up with cardiology to get a Holter or an event monitor and to have further evaluation of possible structural disease. Lastly you had an incidental positive test no obvious intrauterine on bedside ultrasound I cannot rule out an ectopic please follow-up with an [employer] doctor and return to the emergency department any significant vaginal bleeding abdominal discomfort or other concerns. Clinical Impressions Clinical Impression: Near syncope, Anxiety, of unknown anatomic location Print Language Print Language: Irish Discharge ED Provider: Ayesha Parker General Adult HPI General Chief complaint: Dizziness Stated complaint: Almost passed out at work,dizziness Time Seen by Provider: 09/16/24 18:42 Mode of Arrival: Ambulatory Source of Information: Patient Description of Symptoms (Recalled from ER Triage Doc. 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 she reprts the temp in there was reading 86 degress. she also reports numbness in her left fingers deneis loc. patient ambulated to room 10 History of Present Illness HPI narrative: Patient is a 18-year-old female presenting today with lightheadedness, she is in a pass out with significant anxiety. Says she has a history of anxiety and panic attacks and her coworkers feel that that is what happened to her today. She has a history of numerous episodes are similar to this in the past and she has been told by her primary care doctor that they think she has pseudoseizures. She attempted to follow-up with a neurologist who told her that they do not see any patients over the age of 18 and she has subsequently not seen in the adult neurologist. Today she states she was working at [employer] was very hot where she was working about 86 degrees and she is began to feel lightheaded. At the time this was happening and she became too have some panic type symptoms she was having some shortness of breath and chest pain which have since resolved. No history of sudden cardiac in her family she denies any drug use. She denies any other significant past medical history. Other than feeling everywhere right now she states that she still has some anxiety ongoing at the moment. No longer feels lightheaded or that she is going to pass out Related Data Previous Rx's ?Medication ?Instructions ?Recorded ondansetron 4 mg disintegrating 4 mg PO Q8H PRN nausea and 06/08/24 tablet vomiting #12 tabs esomeprazole magnesium 20 mg 20 mg PO DAILY 28 days #28 caps 06/14/24 capsule,delayed release ondansetron 4 mg disintegrating 4 mg PO Q6H PRN nausea and 06/14/24 tablet vomiting #10 tabs fjcxrdozanmvlgy-cvmwfxhmfbxgqfs-HA 5 ml PO Q4H PRN sinus symptoms 07/30/24 2 mg-30 mg-10 mg/5 mL oral syrup #118 mL (Bromfed DM) ondansetron 4 mg disintegrating 4 mg PO QID PRN nausea and 07/30/24 tablet vomiting #10 tabs sulfamethoxazole 800 1 tab PO BID 5 days #10 tabs 07/30/24 mg-trimethoprim 160 mg tablet (Bactrim DS) Allergies Allergy/AdvReac Type Severity Reaction Status Date / Time No Known Allergies Allergy Verified 03/06/24 17:07 [facility] Disclaimer: The information contained in this section may have been updated after the patient was seen, as this information can be updated by other users. Medical History (Updated 09/16/24 @ 20:55 by Ayesha Parker MD) Asthma Seasonal allergies Surgical History (Updated 01/24/22 @ 00:32 by Vanesa Ortiz RN) History of adenoidectomy History of tonsillectomy Social History (Updated 06/03/22 @ 09:05 by Elda Cullen) Smoking Status: Current some day smoker second hand exposure: No alcohol intake: never substance use type: denies use current occupational status: other Travel in the last 8 weeks: None household members: family housing: house number of children: 0 caffeine: Yes Have you lived/traveled outside US in past 30 days?: No Contact w/someone who lives/traveled outside US past 30 days?: No Exposure to someone with infectious disease in past 14 days?: No Do you have a fever (greater than 100.4 F or 38 C)?: No Have you tested positive for COVID-19: No Exposed to someone with COVID-19 in past 14 days?: No Do you have a sore throat?: No Do you have a cough?: No Do you have any weakness?: Yes Do you have any diarrhea?: No Are you experiencing any unusual bleeding?: No Do you have any muscle aches/pain?: No Do you have any abdominal pain?: No Are you experiencing loss of taste or smell?: No Other Medical History Have you received the Flu Vaccine for this season: No Have you received the Pneumonia Vaccine: No ROS Obtained: Yes All systems reviewed & no additional complaints except as documented Physical Exam General General appearance: anxious Respiratory Respiratory exam: Present normal lung sounds bilaterally; Absent respiratory distress Cardiovascular Cardiovascular exam: Present regular rate and normal rhythm Abdominal Exam Abdominal exam: Present soft; Absent distention or tenderness Neurological Exam Neurological exam: Present alert and oriented X3 Medical Decision Making Medical Records Screening: Per USPSTF and CDC recommendations, given the prevalence of disease in our region, it is our hospital?s policy to screen for HIV and viral Hepatitis for all patients aged 18 and over and those with ongoing risk factors. Abhijeet Inquiry Pt receiving controlled substance: No Vital Signs: 09/16/24 18:32 Temperature 98.4 F Temperature Source Oral Pulse Rate [Right Radial] 107 H Respiratory Rate 16 Blood Pressure [Right Arm] 157/82 H Blood Pressure Mean [Right Arm] 107 Blood Pressure Source [Right Arm] Automatic Cuff Blood Pressure Position [Right Arm] Sitting 02 Sat by Pulse Oximetry 16 L Oxygen Delivery Method Room Air Fraction of Inspired Oxygen 99 Lab Data Lab results reviewed: Yes I reviewed the patient's lab results. Lab Results 09/16/24 18:35: Urine Color Dark yellow, Urine Appearance Slightly cloudy, Urine pH 6.0, Ur Specific [place] >= 1.030, Urine Protein Negative, Urine Glucose (UA) Negative, Urine Ketones Negative, Urine Blood Negative, Urine Nitrate Negative, Urine Bilirubin Negative, Urine Urobilinogen 0.2, Ur Leukocyte Esterase Negative, Urine RBC None, Urine WBC 3-5, Ur Squamous Epith Cells 3-5, Urine Bacteria 1+, Urine HCG, Qual Positive 09/16/24 18:37: POC Glucose 104 09/16/24 19:11: WBC 8.9, RBC 4.65, Hgb 12.9, Hct 39.5, MCV 84.9, MCH 27.7, MCHC 32.7, RDW 13.2, Plt Count 240, MPV 11.1 H, Neut % (Auto) 71.1, Lymph % (Auto) 20.9, [place] % (Auto) 6.9, Eos % (Auto) 0.5, Baso % (Auto) 0.3, Neut # (Auto) 6.3, Lymph # (Auto) 1.9, [place] # (Auto) 0.6, Eos # (Auto) 0.0, Baso # (Auto) 0.0, Sodium 140, Potassium 3.7, Chloride 108 H, Carbon Dioxide 26, Anion Gap 9.7, BUN 14, Creatinine 0.90, Estimated Creat Clear 180, Estimated GFR 81, Est GFR ( Amer) 98, Glucose 109 H, Calcium 9.0, Magnesium 1.6, Total Bilirubin 0.5, AST 26, ALT 20, Alkaline Phosphatase 60, Troponin I < 0.01, Total Protein 7.2, Albumin 4.0, Globulin 3.2, Albumin/Globulin Ratio 1.3, TSH 1.84 09/16/24 19:11 09/16/24 19:11 Orders (Tests/Meds): ED MEDICATIONS Generic Name Dose Route Start Last Admin Trade Name Freq PRN Reason Stop Dose Admin Sodium Chloride 10 ml 09/16/24 19:01 Sodium Chloride 0.9% 10ml Vial IV 10/16/24 19:00 NEEDED PRN to Dilute Lorazepam inj Discontinued Medications Generic Name Dose Route Start Last Admin Trade Name Rand PRN Reason Stop Dose Admin Lactated Ringer's 1,000 mls @ 999 mls/hr 09/16/24 19:15 09/16/24 19:20 Lactated Ringer's 1000 Ml Bag IV 09/16/24 20:15 999 mls/hr .Q1H1M MARILIN Administration Lorazepam 1 mg 09/16/24 19:01 09/16/24 19:19 Lorazepam 2mg/Ml Vial IV 09/16/24 19:02 1 mg ONCE ONE Administration ORDERS Category Date Time Status POCUS Point of Care (ER Only) Stat Exams 09/16/24 20:46 Ordered CBC w/Auto Diff [Complete Blood Count Auto Diff] Stat Lab 09/16/24 19:11 Completed CMP [Comprehensive Metabolic Panel] Stat Lab 09/16/24 19:11 Completed Magnesium Stat Lab 09/16/24 19:11 Completed POC Glucose,Bedside Routine Lab 09/16/24 18:37 Completed TSH [Thyroid Stimulating Hormone] Stat Lab 09/16/24 19:11 Completed Trop I [Troponin I] Stat Lab 09/16/24 19:11 Completed Troponin I Q3H Lab 09/16/24 22:15 Ordered Troponin I Q3H Lab 09/17/24 01:15 Ordered Urinalysis and Microscopic Stat Lab 09/16/24 18:35 Completed Urine , HCG Qual. Stat Lab 09/16/24 18:35 Completed ECG Data Tracing #1: I reviewed this ECG and interpreted as documented below: Ventricular of 97 no acute ischemic changes noted normal sinus rhythm no focal conduction abnormalities normal axis Medical Decision Narrative: 18-year-old with above history and physical EKG is unremarkable exam is unremarkable aside from being anxious. Says that she has had numerous episodes like this in the past she is never seen a heel lift gouger we will give her a referral to that for a possible Holter monitor or more structural disease evaluation. Will check basic electrolytes give IV fluids and IV Ativan. I suspect the majority of this is anxiety or stress related. Patient is very well-appearing and I will reassess after this initial workup and evaluation is complete Reassessment 858 patient remains very stable symptomatically is dramatically improved. Labs unremarkable from an emergency standpoint. Of note patient's urine qualitative hCG was positive. Patient has had a in the past with a presumed miscarriage. Bedside ultrasound was performed to see if I could identify the location of her but it was either too early or miscarried or ectopic. Basically of unknown anatomic location. She has no abdominal pain or signs or symptoms of an ectopic or any other OB related emergency this was an incidental finding she has been advised to follow- up with her [employer] doctor. Regarding her presenting symptoms today near syncope I advised that she follow-up with cardiology for possible Holter monitor and structural heart disease evaluation. Patient was discharged in stable condition. Procedures Miscellaneous Procedure Procedure Performed: Limited OB ultrasound Indication: Positive test Identified structures: [-Uterus -Left adnexa -Right adnexa -Pouch of [place]] Findings: Uterus: No definitive IUP Right adnexa: No free fluid Left adnexa: No free fluid Cul de sac: Free fluid absent Impression: No definitive intrauterine cannot rule out ectopic Images were saved to permanent archive The study was technically adequate CPT Transabdominal: 94184-72 This study was performed by me, and I personally interpreted all images/videos. Based on my clinical judgement, these images were adequate and did not necessitate further imaging. Critical Care Critical Care Time Critical Care Time: No
[2024-09-16 19:07] LABS: Urine Pregnancy, HCG Qual. Positive (Negative)
[2024-09-16 19:12] LABS: Appearance,Urine Slightly Cloudy (Clear); Color,Urine Dark Yellow (Yellow)
[2024-09-16 19:19] LABS: Basophils % 0.3 % (0.1-2.0); Eosinophils % 0.5 % (0.1-12.0); Hematocrit 39.5 % (37.0-47.0); Hemoglobin 12.9 g/dL (12.2-16.2); Lymphocytes # 1.9 K/mm3 (0.7-4.5); Lymphocytes % 20.9 % (10-50); Mean Corpuscular HGB Conc 32.7 g/dL (31.8-35.4); Mean Corpuscular Hemoglobin 27.7 pg (27.0-31.2); Mean Corpuscular Volume 84.9 fl (81-99); Mean Platelet Volume 11.1 fl (7.4-10.4); Monocytes # 0.6 K/mm3 (0.1-1.0); Monocytes % 6.9 % (1.7-9.3); Neutrophils # 6.3 K/mm3 (1.8-7.8); Neutrophils % 71.1 % (37.0-80.0); Nucleated Red Blood Cells # 0 10^3/uL; Nucleated Red Blood Cells % 0 %; Platelet Count 240 K/mm3 (142-424); Red Blood Count 4.65 M/mm3 (4.20-5.40); Red Cell Distribution Width 13.2 % (11.5-17.5); Red Cell Distribution Width-SD 41.1 fL; White Blood Count 8.9 K/mm3 (4.5-13.0)
[2024-09-16] MEDS: LORazepam 2MG/ML VIAL 1 MG IV (19:19)
[2024-09-16] MEDS: LACTATED RINGERS 1000ML 1,000 ML 999 ML IV (19:20)
[2024-09-16 19:23] LABS: Bacteria,Urine 1+ /lpf
[2024-09-16 19:30] LABS: Chloride 108 mmol/L (98-107)
[2024-09-16 19:31] LABS: Potassium 3.7 mmoL/L (3.5-5.1); Sodium 140 mmol/L (136-145)
[2024-09-16 19:34] LABS: Alanine Aminotransferase 20 U/L (12-78); Albumin/Globulin Ratio 1.3 (1.1-1.8); Alkaline Phosphatase 60 U/L (38-126); Anion Gap 9.7 mEq/L (5-15); Aspartate Amino Transferase 26 U/L (14-36); Bilirubin,Total 0.5 mg/dl (0.2-1.3); Blood Urea Nitrogen 14 mg/dl (7-17); Carbon Dioxide 26 mmol/L (22.0-30.0); Creatinine Clearance Estimated 180 mL/min (50-200); Estimated Glomerular Filt Rate 81 ml/min (>60); GFR (African American) 98 ML/MIN (>60); Globulin 3.2 g/dL (1.3-3.2); Glucose 109 mg/dl (74-100); Magnesium 1.6 mg/dl (1.6-2.3); Total Protein,Serum 7.2 g/dl (6.3-8.2)
[2024-09-16 20:21] LABS: Troponin I < 0.01 ng/ml (0.00-0.034)
[2024-09-16 20:22] LABS: Thyroid Stimulating Hormone 1.84 uIU/mL (0.465-4.68)
[2024-09-16 21:03] VITALS: BP 122/80; PULSE 78; RESP 16; TEMP 36.6; O2SAT 98
== END 2024-09-16 21:05 | disposition home or self-care (01) ==
PROVIDERS: Emergency Provider Student in an Organized Health Care Education/Training Program; PCP Nurse Practitioner
DX: R55 Syncope and collapse (principal); F41.9 Anxiety disorder, unspecified; Z33.1 Pregnant state, incidental
CPT/HCPCS: 80053; 81001; 81025; 82962; 83735; 84443; 84484; 85025; 93005; 96361; 96374; 99284; J2060; J7120

== ENCOUNTER 2024-09-18 14:08 | Outpatient (CLI) | payer OTHER, SELFPAY ==
[2024-09-18 15:28] LABS: HCG,Quantitative 306 mIU/ml (0-5.42)
[2024-09-20 13:36] LABS: Progesterone 10.7 ng/mL (.)
== END 2024-09-18 23:59 | disposition home or self-care (01) ==
PROVIDERS: PCP Nurse Practitioner; Visit Provider Nurse Practitioner Obstetrics & Gynecology
DX: Z32.01 Encounter for pregnancy test, result positive (principal)
CPT/HCPCS: 36415; 84144; 84702

== ENCOUNTER 2024-09-20 08:25 | Emergency (ER) | payer OTHER, SELFPAY ==
[2024-09-20 08:33] LABS: Microscopic, Urine URINE MICROSCOPIC (MICROSCOPIC)
[2024-09-20 08:34] VITALS: BP 129/94; PULSE 90; RESP 18; TEMP 36.7; O2SAT 100; BMI 39.1
--- NOTE | 2024-09-20 08:35 | US_ITS ---
PROCEDURE INFORMATION: Exam: US , Transvaginal Exam date and time: 09/20/2024 9:20 AM Age: 18 years old Clinical indication: complicated by abdominal or pelvic pain; Right lower quadrant; First trimester (<14 weeks 0 days); Gestational age or lmp: 08/11/2024; ; Additional info: Positive preg, abd pain, cramping, R/O ectopic LABS AND CLINICAL REPORTS: Last menstrual period start date: 08/11/2024 Gestational age (Established): 5 w 5 d Estimated due date (Established): 05/18/2025 TECHNIQUE: Imaging protocol: Real-time transvaginal obstetrical ultrasound of the maternal pelvis with image documentation. Transvaginal imaging was used for better evaluation of the fetus, adnexa, and/or cervix. COMPARISON: CT ABDOMEN PELVIS W CON 01/24/2022 1:04 AM FINDINGS: Gestation: Tiny gestational sac with surrounding echogenic decidual reaction. No yolk sac or pole are identified at this early age. BIOMETRY: Gestational age (AUA): 4 w 5 d Estimated due date (AUA): 05/25/2025 Mean sac diameter: 0.31 cm. MATERNAL: Right ovary/adnexa: Right ovary measures 2.15 cm x 2.02 cm x 2.08 cm. Right ovarian volume is 4.73 mL. Color Doppler signals are present. Left ovary/adnexa: Left ovary measures 2.79 cm x 2.06 cm x 1.81 cm. Left ovarian volume is 5.45 mL. Color Doppler signals are present. IMPRESSION: 1. Early intrauterine gestation of uncertain viability. Follow-up ultrasound may be useful in 10-14 days if clinically warranted. 2. No sonographic abnormalities.
[2024-09-20 08:40] LABS: Appearance,Urine CLEAR (Clear); Bilirubin,Urine Negative (Negative); Blood, Urine Negative (Negative); Color,Urine YELLOW (Yellow); Glucose,Urine (UA) Negative (Negative); Ketones,Urine Negative (Negative); Leukocyte Esterase,Urine Negative (Negative); Nitrate,Urine Negative (Negative); Protein,Urine Negative (Negative); Specific Gravity, Urine >= 1.030 (1.005-1.030); Urobilinogen,Urine 0.2 EU/dl (0.2)
[2024-09-20 09:00] LABS: Bacteria,Urine Trace /lpf
[2024-09-20 09:08] LABS: Basophils % 0.3 % (0.1-2.0); Eosinophils # 0.1 Kmm3 (0.0-0.4); Eosinophils % 1.7 % (0.1-12.0); Hematocrit 36.8 % (37.0-47.0); Hemoglobin 12.1 g/dL (12.2-16.2); Lymphocytes # 2.6 K/mm3 (0.7-4.5); Lymphocytes % 33.9 % (10-50); Mean Corpuscular HGB Conc 32.9 g/dL (31.8-35.4); Mean Corpuscular Hemoglobin 27.9 pg (27.0-31.2); Mean Platelet Volume 11.1 fl (7.4-10.4); Monocytes # 0.7 K/mm3 (0.1-1.0); Monocytes % 9.8 % (1.7-9.3); Neutrophils # 4.1 K/mm3 (1.8-7.8); Neutrophils % 53.9 % (37.0-80.0); Nucleated Red Blood Cells # 0 10^3/uL; Nucleated Red Blood Cells % 0 %; Platelet Count 221 K/mm3 (142-424); Red Blood Count 4.33 M/mm3 (4.20-5.40); Red Cell Distribution Width 13.1 % (11.5-17.5); Red Cell Distribution Width-SD 40.4 fL; White Blood Count 7.6 K/mm3 (4.5-13.0)
[2024-09-20 09:14] LABS: Alanine Aminotransferase 17 U/L (12-78); Albumin Level 3.5 g/dl (3.5-5.0); Albumin/Globulin Ratio 1.1 (1.1-1.8); Alkaline Phosphatase 51 U/L (38-126); Aspartate Amino Transferase 24 U/L (14-36); Bilirubin,Total 0.7 mg/dl (0.2-1.3); Blood Urea Nitrogen 13 mg/dl (7-17); Carbon Dioxide 27 mmol/L (22.0-30.0); Chloride 112 mmol/L (98-107); Creatinine Clearance Estimated 231 mL/min (50-200); Estimated Glomerular Filt Rate 108 ml/min (>60); GFR (African American) 130 ML/MIN (>60); Globulin 3.1 g/dL (1.3-3.2); Glucose 101 mg/dl (74-100); Sodium 139 mmol/L (136-145); Total Protein,Serum 6.6 g/dl (6.3-8.2)
--- NOTE | 2024-09-20 09:18 | ED_ITS ---
Discharge Plan Disposition Patient Disposition: Home, Self-Care Condition: Good Prescriptions Prescriptions: New Vitamin 27 mg iron- 800 mcg tablet 1 tab PO DAILY Qty: 30 2RF No Action ondansetron 4 mg tablet,disintegrating 4 mg PO Q6H PRN (Reason: nausea and vomiting) Qty: 10 0RF esomeprazole magnesium 20 mg capsule,delayed release(DR/EC) 20 mg PO DAILY 28 Days Qty: 28 0RF ondansetron 4 mg tablet,disintegrating 4 mg PO Q8H PRN (Reason: nausea and vomiting) Qty: 12 0RF sulfamethoxazole-trimethoprim [Bactrim DS] 800-160 mg tablet 1 tab PO BID 5 Days Qty: 10 0RF ykogqybikernyzv-jzkwcildx-PB [Bromfed DM] 2-30-10 mg/5 mL syrup 5 ml PO Q4H PRN (Reason: sinus symptoms) Qty: 118 0RF ondansetron 4 mg tablet,disintegrating 4 mg PO QID PRN (Reason: nausea and vomiting) Qty: 10 0RF Referrals Follow up/Referrals: Elian Mills MD [Staff Physician] - See instructions Vidhya Martínez APRN [Primary Care Provider] - See instructions Activity Restrictions/Add. Instructions Additional Instructions/Restrictions: You were evaluated in the emergency department today. At this time, your ultrasound does demonstrate an early intrauterine but it is too early to determine much about the at this point. It is very important that you follow-up closely with gynecology for reassessment. Please keep your scheduled appointment with them on 10/06/2024. You may take Tylenol every 4-6 hours as needed for pain. I also recommend daily vitamin. Return to the emergency department for new or worsening symptoms, such as severe abdominal pain, syncope, or other concerns. Clinical Impressions Clinical Impression: , Abdominal cramping Stand Alone Forms Stand Alone Forms: Work/School Release Instructions Patient Instructions: DI for -- Discomforts and Remedies Print Language Print Language: Mongolian Discharge ED Provider: Esha Benz General Adult HPI General Chief complaint: Abdominal Pain Stated complaint: right side abd pain w/camps Time Seen by Provider: 09/20/24 08:35 Mode of Arrival: Ambulatory Source of Information: Patient Description of Symptoms (Recalled from ER Triage Doc. by RN): Patient states that she was here on and was told that she was . States they did a bedside ultrasound and that he couldn't rule out an etopic . Friday she began to have right sided cramping so she came today to get that checked out. History of Present Illness HPI narrative: This patient is a 18-year-old female who denies significant past medical history presenting to the emergency department for evaluation of concern for right sided lower abdominal pain and cramping with positive test. Patient notes that she was evaluated here 09/16/2024 for a presyncopal episode at work, at which point she was told that she had a positive test but they were not able to rule out ectopic with an ultrasound. She expresses concern that because she is having right-sided pain and is worried she could be having an ectopic . Pain is intermittent and crampy. She notes a history of PCOS. Her last menstrual period started 08/11/2024. No abnormal vaginal discharge, bleeding, or other concerns. Related Data Previous Rx's ?Medication ?Instructions ?Recorded ondansetron 4 mg disintegrating 4 mg PO Q8H PRN nausea and 06/08/24 tablet vomiting #12 tabs esomeprazole magnesium 20 mg 20 mg PO DAILY 28 days #28 caps 06/14/24 capsule,delayed release ondansetron 4 mg disintegrating 4 mg PO Q6H PRN nausea and 06/14/24 tablet vomiting #10 tabs whbvgsjoizsmmwv-qsgqboenjotyiwz-EX 5 ml PO Q4H PRN sinus symptoms 07/30/24 2 mg-30 mg-10 mg/5 mL oral syrup #118 mL (Bromfed DM) ondansetron 4 mg disintegrating 4 mg PO QID PRN nausea and 07/30/24 tablet vomiting #10 tabs sulfamethoxazole 800 1 tab PO BID 5 days #10 tabs 07/30/24 mg-trimethoprim 160 mg tablet (Bactrim DS) vits no.124-ferrous fum 1 tab PO DAILY #30 tabs 09/20/24 27 mg iron-folic acid 800 mcg tablet ( Vitamin) Allergies Allergy/AdvReac Type Severity Reaction Status Date / Time No Known Allergies Allergy Verified 03/06/24 17:07 [facility] Disclaimer: The information contained in this section may have been updated after the patient was seen, as this information can be updated by other users. Medical History Asthma Seasonal allergies Surgical History History of adenoidectomy History of tonsillectomy Social History Smoking Status: Never smoker second hand exposure: No alcohol intake: never substance use type: denies use current occupational status: other Travel in the last 8 weeks: None household members: family housing: house number of children: 0 caffeine: Yes Have you lived/traveled outside US in past 30 days?: No Contact w/someone who lives/traveled outside US past 30 days?: No Exposure to someone with infectious disease in past 14 days?: No Do you have a fever (greater than 100.4 F or 38 C)?: No Have you tested positive for COVID-19: No Exposed to someone with COVID-19 in past 14 days?: No Do you have a sore throat?: No Do you have a cough?: No Do you have any weakness?: No Do you have any diarrhea?: No Are you experiencing any unusual bleeding?: No Do you have any muscle aches/pain?: No Do you have any abdominal pain?: Yes Are you experiencing loss of taste or smell?: No Other Medical History Have you received the Flu Vaccine for this season: No Have you received the Pneumonia Vaccine: No ROS Obtained: Yes All systems reviewed & no additional complaints except as documented Physical Exam General General appearance: alert and in no apparent distress Head Head exam: atraumatic and normocephalic Eye Eye exam: Present normal appearance, PERRL and EOMI ENT ENT exam: Present normal exam, normal oropharynx, mucous membranes moist and normal external ear exam Neck Neck exam: Present normal inspection, full ROM and trachea midline; Absent tenderness Chest Chest inspection: Present normal inspection and symmetric chest wall rise; Absent tenderness Respiratory Respiratory exam: Present normal lung sounds bilaterally; Absent respiratory distress, wheezes, stridor or accessory muscle use Cardiovascular Cardiovascular exam: Present regular rate and normal rhythm Abdominal Exam Abdominal exam: Present soft; Absent distention, tenderness or guarding Extremities Exam Extremities exam: Present normal inspection, full ROM and normal capillary refill; Absent tenderness or edema Back Exam Back exam: Present normal inspection and full ROM; Absent tenderness Neurological Exam Neurological exam: Present alert, oriented X3, CN II-XII intact and normal gait; Absent motor sensory deficit Psychiatric Psychiatric exam: Present normal affect and normal mood Skin Skin exam: Present warm and dry Medical Decision Making Medical Records Medical records reviewed: Yes I reviewed the patient's medical records. Screening: Per USPSTF and CDC recommendations, given the prevalence of disease in our region, it is our hospital?s policy to screen for HIV and viral Hepatitis for all patients aged 18 and over and those with ongoing risk factors. Abhijeet Inquiry Pt receiving controlled substance: No Vital Signs: 09/20/24 08:34 09/20/24 10:35 Temperature 98.0 F 98.6 F Temperature Source Oral Oral Pulse Rate 80 Pulse Rate [Radial] 90 Respiratory Rate 18 20 Blood Pressure 126/84 Blood Pressure [Right Arm] 129/94 H Blood Pressure Mean [Right Arm] 105 Blood Pressure Source Automatic Cuff Blood Pressure Source [Right Arm] Automatic Cuff Blood Pressure Position Supine Blood Pressure Position [Right Arm] Sitting 02 Sat by Pulse Oximetry 100 Oxygen Delivery Method Room Air Room Air Lab Data Lab results reviewed: Yes I reviewed the patient's lab results. Lab Results 09/20/24 08:28: Urine Color Yellow, Urine Appearance Clear, Urine pH 6.0, Ur Specific [place] >= 1.030, Urine Protein Negative, Urine Glucose (UA) Negative, Urine Ketones Negative, Urine Blood Negative, Urine Nitrate Negative, Urine Bilirubin Negative, Urine Urobilinogen 0.2, Ur Leukocyte Esterase Negative, Urine RBC None, Urine WBC 3-5, Ur Squamous Epith Cells 5-10, Urine Bacteria Trace 09/20/24 08:53: WBC 7.6, RBC 4.33, Hgb 12.1 L, Hct 36.8 L, MCV 85.0, MCH 27.9, MCHC 32.9, RDW 13.1, Plt Count 221, MPV 11.1 H, Neut % (Auto) 53.9, Lymph % (Auto) 33.9, [place] % (Auto) 9.8 H, Eos % (Auto) 1.7, Baso % (Auto) 0.3, Neut # (Auto) 4.1, Lymph # (Auto) 2.6, [place] # (Auto) 0.7, Eos # (Auto) 0.1, Baso # (Auto) 0.0, Sodium 139, Potassium 4.0, Chloride 112 H, Carbon Dioxide 27, Anion Gap 4.0 L, BUN 13, Creatinine 0.70, Estimated Creat Clear 231, Estimated GFR 108, Est GFR ( Amer) 130, Glucose 101 H, Calcium 9.0, Total Bilirubin 0.7, AST 24, ALT 17, Alkaline Phosphatase 51, Total Protein 6.6, Albumin 3.5, Globulin 3.1, Albumin/Globulin Ratio 1.1, HCG, Quant 549 H 09/20/24 08:53 09/20/24 08:53 Orders (Tests/Meds): ORDERS Category Date Time Status Complete Blood Count Auto Diff Stat Lab 09/20/24 08:53 Completed Comprehensive Metabolic Panel Stat Lab 09/20/24 08:53 Completed HCG,Quantitative Stat Lab 09/20/24 08:53 Completed UA [Urinalysis and Microscopic] Stat Lab 09/20/24 08:28 Completed US OB transvaginal Stat Ultrasound 09/20/24 08:35 Completed Medical Decision Narrative: In summary, this patient is a 18-year-old female presenting to the Emergency Department for evaluation of right-sided lower abdominal pain/cramp. Differential diagnoses considered include but are not limited to ovarian cyst, ectopic , IUP, UTI. Ruling out the most morbid conditions drove assessment. I reviewed patient's past medical records and noted evaluation here 09/16/2024 as detailed in HPI. Unable to visualize on ultrasound.. hCG obtained 09/18/2024 was 306 On exam, the patient is sitting upright in no acute distress with benign abdominal exam. Vitals are reassuring. Workup included CBC, CMP for quantitative hCG, transvaginal ultrasound. I independently interpreted ultrasound prior to the radiologist read and noted IUP without a visible ectopic . Please see their read for final interpretation. Labs were obtained that demonstrated reassuring CBC with no significant leukocytosis, reassuring chemistry with normal kidney function. hCG is increased to 549. She is having no vaginal bleeding, so I did not have any indication to check Rh status as there is no indication for RhoGAM right now. On reassessment, patient is resting comfortably with benign abdominal exam. At this time, she does have visible IUP, though it is too early to get cardiac activity. At this time, I feel that she is appropriate for discharge home with close follow-up with OB. She was given strict return precautions and was discharged after all questions were answered. Critical Care Critical Care Time Critical Care Time: No
[2024-09-20 09:31] LABS: HCG,Quantitative 549 mIU/ml (0-5.42)
[2024-09-20 10:35] VITALS: BP 126/84; PULSE 80; RESP 20; TEMP 37; O2SAT 99
== END 2024-09-20 10:39 | disposition home or self-care (01) ==
PROVIDERS: Emergency Provider Emergency Medicine; PCP Nurse Practitioner
DX: O26.891 Other specified pregnancy related conditions, first trimester (principal); R10.31 Right lower quadrant pain; Z3A.01 Less than 8 weeks gestation of pregnancy
CPT/HCPCS: 76817; 80053; 81001; 84702; 85025; 99284

== ENCOUNTER 2024-10-01 03:53 | Emergency (ER) | payer OTHER, SELFPAY ==
[2024-10-01 04:00] VITALS: BP 148/88; PULSE 81; O2SAT 98
[2024-10-01 04:02] VITALS: BP 148/88; PULSE 80; RESP 18; TEMP 36.8; O2SAT 98; BMI 38.3
[2024-10-01] MEDS: ONDANSETRON 4MG ODT 4 MG SL (04:03)
--- NOTE | 2024-10-01 04:11 | HMH.EDGENADL ---
Discharge Plan Disposition Patient Disposition: Home, Self-Care Prescriptions Prescriptions: New Nighttime Sleep-Aid (doxylamn) 25 mg tablet 25 mg PO HS PRN (Reason: sleep) Qty: 60 0RF pyridoxine (vitamin B6) 25 mg tablet 25 mg PO HS PRN (Reason: vomiting) Qty: 60 0RF Rx Instructions: take one each of the pyridoxine and doxylamine at night as needed for nausea and vomiting. Can take another dose in the morning if symptoms persist. No Action ondansetron 4 mg tablet,disintegrating 4 mg PO Q6H PRN (Reason: nausea and vomiting) Qty: 10 0RF esomeprazole magnesium 20 mg capsule,delayed release(DR/EC) 20 mg PO DAILY 28 Days Qty: 28 0RF Vitamin 27 mg iron- 800 mcg tablet 1 tab PO DAILY Qty: 30 2RF ondansetron 4 mg tablet,disintegrating 4 mg PO Q8H PRN (Reason: nausea and vomiting) Qty: 12 0RF sulfamethoxazole-trimethoprim [Bactrim DS] 800-160 mg tablet 1 tab PO BID 5 Days Qty: 10 0RF xpzyswzecinuzdt-hwafhhqub-AJ [Bromfed DM] 2-30-10 mg/5 mL syrup 5 ml PO Q4H PRN (Reason: sinus symptoms) Qty: 118 0RF ondansetron 4 mg tablet,disintegrating 4 mg PO QID PRN (Reason: nausea and vomiting) Qty: 10 0RF Referrals Follow up/Referrals: Vidhya Martínez APRN [Primary Care Provider] - See instructions Activity Restrictions/Add. Instructions Additional Instructions/Restrictions: Take the doxylamine and pyridoxine as needed for nausea and vomiting. If symptoms persist despite these medications, okay to take an occasional dose of Zofran for significant symptoms. Please follow-up with your obgyn. Please return to the emergency department if you develop any new or worsening symptoms or become concerned for your health. Clinical Impressions Clinical Impression: Nausea and vomiting in prior to 22 weeks gestation, Epistaxis Instructions Patient Instructions: DI for Nausea -- Adult, DI for Nausea -- Child, DI for Diarrhea and Traveler's Diarrhea -- Adult, DI for Diarrhea and Traveler's Diarrhea -- Child Print Language Print Language: Iranian Discharge ED Provider: Kana Lopez General Adult HPI General Chief complaint: Nausea/Vomiting/Diarrhea Stated complaint: 5 wks ante, nausea, vomitng, nosebleed Time Seen by Provider: 10/01/24 03:55 Mode of Arrival: Ambulatory Source of Information: Patient Description of Symptoms (Recalled from ER Triage Doc. by RN): Pt reports having N/V for approx 1 week. Pt states [employer] she began to vomit and developed nose bleed. Pt has no signs of nose bleed upon arrival to ER. Pt reports she has is and has 1st OB appointment on 10-06-2024. History of Present Illness HPI narrative: 18-year-old female, reportedly at approximately 5 weeks, presents for nausea vomiting and epistaxis. She reports that she has been having nausea and vomiting for about a week. Tonight it was worse and she vomited so hard that she started having a nosebleed. This is why they came in. Prior to arrival although nosebleeding it stopped. Patient reports that she is still nauseous. She is eating and drinking less than normal. She denies any significant abdominal pain, denies any vaginal bleeding. Related Data Previous Rx's ?Medication ?Instructions ?Recorded ondansetron 4 mg disintegrating 4 mg PO Q8H PRN nausea and 06/08/24 tablet vomiting #12 tabs esomeprazole magnesium 20 mg 20 mg PO DAILY 28 days #28 caps 06/14/24 capsule,delayed release ondansetron 4 mg disintegrating 4 mg PO Q6H PRN nausea and 06/14/24 tablet vomiting #10 tabs uifdorrcvdpsstu-uzrsswuxroolftq-OQ 5 ml PO Q4H PRN sinus symptoms 07/30/24 2 mg-30 mg-10 mg/5 mL oral syrup #118 mL (Bromfed DM) ondansetron 4 mg disintegrating 4 mg PO QID PRN nausea and 07/30/24 tablet vomiting #10 tabs sulfamethoxazole 800 1 tab PO BID 5 days #10 tabs 07/30/24 mg-trimethoprim 160 mg tablet (Bactrim DS) vits no.124-ferrous fum 1 tab PO DAILY #30 tabs 09/20/24 27 mg iron-folic acid 800 mcg tablet ( Vitamin) doxylamine succinate 25 mg tablet 25 mg PO HS PRN sleep #60 tabs 10/01/24 (Nighttime Sleep-Aid (doxylamine)) pyridoxine (vitamin B6) 25 mg 25 mg PO HS PRN vomiting #60 tabs 10/01/24 tablet Allergies Allergy/AdvReac Type Severity Reaction Status Date / Time No Known Allergies Allergy Verified 03/06/24 17:07 [facility] Disclaimer: The information contained in this section may have been updated after the patient was seen, as this information can be updated by other users. Medical History Asthma Seasonal allergies Surgical History History of adenoidectomy History of tonsillectomy Social History Smoking Status: Never smoker second hand exposure: No alcohol intake: never substance use type: denies use current occupational status: other Travel in the last 8 weeks?: None household members: family housing: house number of children: 0 caffeine: Yes Have you lived/traveled outside US in past 30 days?: No Contact w/someone who lives/traveled outside US past 30 days?: No Exposure to someone with infectious disease in past 14 days?: No Do you have a fever (greater than 100.4 F or 38 C)?: No Have you tested positive for COVID-19?: No Exposed to someone with COVID-19 in past 14 days?: No Do you have a sore throat?: No Do you have a cough?: No Do you have any weakness?: No Do you have any diarrhea?: No Are you experiencing any unusual bleeding?: Yes Do you have any muscle aches/pain?: No Do you have any abdominal pain?: No Are you experiencing loss of taste or smell?: No Other Medical History Have you received the Flu Vaccine for this season: No Have you received the Pneumonia Vaccine: No ROS Obtained: Yes All systems reviewed & no additional complaints except as documented Physical Exam General General appearance: alert and in no apparent distress Head Head exam: atraumatic and normocephalic Eye Eye exam: Present normal appearance, PERRL and EOMI ENT ENT exam: Present normal oropharynx and normal external ear exam Neck Neck exam: Present normal inspection and full ROM Chest Chest inspection: Present normal inspection and symmetric chest wall rise; Absent tenderness Respiratory Respiratory exam: Present normal lung sounds bilaterally; Absent respiratory distress Cardiovascular Cardiovascular exam: Present regular rate and normal rhythm Abdominal Exam Abdominal exam: Present soft; Absent distention, tenderness or guarding Extremities Exam Extremities exam: Present normal inspection; Absent edema or joint swelling Back Exam Back exam: Present normal inspection; Absent tenderness Neurological Exam Neurological exam: Present alert and oriented X3; Absent motor sensory deficit Psychiatric Psychiatric exam: Present normal affect and normal mood Skin Skin exam: Present warm, dry and normal color Lymphatic Lymphatic Findings: no adenopathy Medical Decision Making Medical Records Medical records reviewed: Yes I reviewed the patient's medical records. Screening: Per USPSTF and CDC recommendations, given the prevalence of disease in our region, it is our hospital?s policy to screen for HIV and viral Hepatitis for all patients aged 18 and over and those with ongoing risk factors. Abhijeet Inquiry Pt receiving controlled substance: No Abhijeet was queried for this patient: No Vital Signs: 10/01/24 04:02 Temperature 98.2 F Temperature Source Oral Pulse Rate [Left] 80 Respiratory Rate 18 Blood Pressure [Right Arm] 148/88 H Blood Pressure Mean [Right Arm] 108 Blood Pressure Source [Right Arm] Automatic Cuff Blood Pressure Position [Right Arm] Sitting 02 Sat by Pulse Oximetry 98 Oxygen Delivery Method Room Air Lab Data Lab results reviewed: Yes I reviewed the patient's lab results. Orders (Tests/Meds): ED MEDICATIONS Discontinued Medications Generic Name Dose Route Start Last Admin Trade Name Freq PRN Reason Stop Dose Admin Ondansetron HCl 4 mg 10/01/24 04:02 10/01/24 04:03 Ondansetron 4mg Odt SL 10/01/24 04:03 4 mg ONCE ONE Administration Medical Decision Narrative: 18-year-old female without significant past history present at 5 weeks with nausea vomiting for the last week and an episode of vomiting that produced epistaxis tonight. Epistaxis ceased prior to arrival.. History was obtained via interactive discussion with patient, family, chart review. On arrival, patient is [afebrile, hemodynamically stable, satting appropriately, alert, oriented x4, GCS 15], moving all extremities spontaneously. Full physical exam performed and significant for no significant physical exam abnormalities. Differential includes but is not limited to nausea and vomiting in , anterior epistaxis, posterior epistaxis, dehydration, electrolyte derangement. Patient is generally well-appearing. I considered obtaining labs and giving IV fluids but instead will trial p.o. antiemetic and p.o. fluids. Patient was given single dose of Zofran. After period of observation, patient reports symptomatic improvement and she was able to drink multiple bottles of water. Given this, patient was deemed appropriate for discharge with outpatient management. She was prescribed doxylamine and pyridoxine and encouraged to follow-up with CLINICAL DATA COORDINATOR. Return precautions given. Procedures Risk/Benefits of Procedure(s) Were Explained: Yes Critical Care Critical Care Time Critical Care Time: No
[2024-10-01 04:33] VITALS: BP 147/82; PULSE 75; RESP 18; TEMP 36.6; O2SAT 98
[2024-10-01 04:34] VITALS: BP 147/82; PULSE 75; RESP 18; TEMP 36.6
== END 2024-10-01 04:36 | disposition home or self-care (01) ==
PROVIDERS: Emergency Provider Emergency Medicine; PCP Nurse Practitioner
DX: O21.9 Vomiting of pregnancy, unspecified (principal); R04.0 Epistaxis; Z3A.01 Less than 8 weeks gestation of pregnancy
CPT/HCPCS: 99283; Q0162

== ENCOUNTER 2024-10-06 15:23 | Outpatient (CLI) | payer OTHER, SELFPAY ==
[2024-10-06 16:24] LABS: Basophils % 0.2 % (0.1-2.0); Eosinophils # 0.1 Kmm3 (0.0-0.4); Eosinophils % 0.6 % (0.1-12.0); Hemoglobin 13.1 g/dL (12.2-16.2); Immature Granulocytes # 0.04 10^3uL; Immature Granulocytes % 0.4 %; Lymphocytes # 2.2 K/mm3 (0.7-4.5); Lymphocytes % 23.3 % (10-50); Mean Corpuscular HGB Conc 33.6 g/dL (31.8-35.4); Mean Corpuscular Volume 83.3 fl (81-99); Mean Platelet Volume 11.8 fl (7.4-10.4); Monocytes # 0.9 K/mm3 (0.1-1.0); Monocytes % 9.1 % (1.7-9.3); Neutrophils # 6.4 K/mm3 (1.8-7.8); Neutrophils % 66.4 % (37.0-80.0); Nucleated Red Blood Cells # 0 10^3/uL; Nucleated Red Blood Cells % 0 %; Platelet Count 254 K/mm3 (142-424); Red Blood Count 4.68 M/mm3 (4.20-5.40); Red Cell Distribution Width 13.5 % (11.5-17.5); Red Cell Distribution Width-SD 41.1 fL; White Blood Count 9.6 K/mm3 (4.5-13.0)
[2024-10-07 05:08] LABS: Hepatitis B Surface Antigen Negative (Negative)
[2024-10-07 11:43] LABS: RPR W/RFX Titers Nonreactive (Nonreactive)
[2024-10-07 21:17] LABS: Neisseria gonorrhoeae, NAA Negative (Negative)
== END 2024-10-06 23:59 | disposition home or self-care (01) ==
LOC: LAB 15:25
PROVIDERS: PCP Nurse Practitioner; Visit Provider Nurse Practitioner Obstetrics & Gynecology
DX: Z34.01 Encounter for supervision of normal first pregnancy, first trimester (principal); Z3A.01 Less than 8 weeks gestation of pregnancy
CPT/HCPCS: 36415; 85025; 86592; 86762; 86850; 87340; 87491; 87591

== ENCOUNTER 2024-10-13 12:52 | Outpatient (CLI) | payer OTHER, SELFPAY ==
--- NOTE | 2024-10-13 13:00 | US_ITS ---
PROCEDURE: US OB <= 14 WEEKS FETUS CLINICAL INDICATION: Dates and Viability COMPARISON: US POINT OF CARE US (ER ONLY) from 09/16/2024 US US OB TRANSVAGINAL from 09/20/2024 FINDINGS: Transvaginal sonographic images of the pelvis were obtained. From her last menstrual period she is 9weeks 0 days. An intrauterine gestational sac is present with a pole with a crown-rump length of 1.61cm This correlates to a gestational age of 8weeks 1day. DIANA 05/24/2025 heart tones are present with an FHR of 147bpm. Yolk sac is noted. The yolk sac measures 6.5 mm. The right ovary is seen and appears normal. The left ovary is seen and appears normal. There is a 2.1 cm corpus luteum in the left ovary. There is no fluid in the cul-de-sac. IMPRESSION: 1. Viable embryo within the uterine cavity. heart rate activity is seen. 2. [place]-rump length is 8 weeks 1 day and her dates should be revised to reflect this. The DIANA will be 05/24/2025. 3. Both ovaries are seen and appear normal. 4. No fluid in the cul-de-sac. Dictated by: Elian Mills MD 10/14/2024 06:38 Elian Mills MD in OV 10/14/2024 06:38
== END 2024-10-13 23:59 | disposition home or self-care (01) ==
LOC: RAD 12:53
PROVIDERS: PCP Nurse Practitioner; Visit Provider Nurse Practitioner Obstetrics & Gynecology
DX: O36.80X0 Pregnancy with inconclusive fetal viability, not applicable or unspecified (principal); Z36.87 Encounter for antenatal screening for uncertain dates; Z3A.09 9 weeks gestation of pregnancy
CPT/HCPCS: 76801

== ENCOUNTER 2024-10-15 10:15 | Emergency (ER) | payer OTHER, SELFPAY ==
[2024-10-15 10:24] VITALS: BP 132/80; PULSE 89; RESP 18; TEMP 36.6; O2SAT 100; BMI 36.9
--- NOTE | 2024-10-15 10:42 | HMH.EDGENADL ---
Discharge Plan Disposition Patient Disposition: Home, Self-Care Condition: Fair Prescriptions Prescriptions: No Action Vitamin 27 mg iron- 800 mcg tablet PO Patient Comments: TAKE 1 TABLET BY MOUTH ONCE A DAY fosfomycin tromethamine 3 gram packet 3 g PO .Q 48 hrs Qty: 3 0RF Rx Instructions: Take one dose by mouth every 48 hours. For a total of 3 doses. ondansetron 4 mg tablet,disintegrating 4 mg PO Q6H PRN (Reason: nausea and vomiting) Qty: 10 0RF esomeprazole magnesium 20 mg capsule,delayed release(DR/EC) 20 mg PO DAILY 28 Days Qty: 28 0RF Vitamin 27 mg iron- 800 mcg tablet 1 tab PO DAILY Qty: 30 2RF Nighttime Sleep-Aid (doxylamn) 25 mg tablet 25 mg PO HS PRN (Reason: sleep) Qty: 60 0RF pyridoxine (vitamin B6) 25 mg tablet 25 mg PO HS PRN (Reason: vomiting) Qty: 60 0RF Rx Instructions: take one each of the pyridoxine and doxylamine at night as needed for nausea and vomiting. Can take another dose in the morning if symptoms persist. ondansetron 4 mg tablet,disintegrating 4 mg PO Q8H PRN (Reason: nausea and vomiting) Qty: 12 0RF sulfamethoxazole-trimethoprim [Bactrim DS] 800-160 mg tablet 1 tab PO BID 5 Days Qty: 10 0RF cewuofwoebriqqn-fgucovfcu-UG [Bromfed DM] 2-30-10 mg/5 mL syrup 5 ml PO Q4H PRN (Reason: sinus symptoms) Qty: 118 0RF ondansetron 4 mg tablet,disintegrating 4 mg PO QID PRN (Reason: nausea and vomiting) Qty: 10 0RF Referrals Follow up/Referrals: Vidhya Martínez APRN [Primary Care Provider] - See instructions Activity Restrictions/Add. Instructions Additional Instructions/Restrictions: Follow-up with your OB physician if symptoms persist. You can take your nausea medications as prescribed. If you develop any new or worsening symptoms, or if you become concerned for your health for any reason, return to the emergency department for evaluation. Clinical Impressions Clinical Impression: Nausea and vomiting during Instructions Patient Instructions: DI for Diarrhea and Traveler's Diarrhea -- Adult, DI for Diarrhea and Traveler's Diarrhea -- Child, DI for Nausea -- Adult, DI for Nausea -- Child Print Language Print Language: Northern Irish Discharge ED Provider: Dennis Fisher Adult HPI General Chief complaint: Nausea/Vomiting/Diarrhea Stated complaint: 8wks vomiting blood Time Seen by Provider: 10/15/24 10:34 Mode of Arrival: Ambulatory Source of Information: Patient Description of Symptoms (Recalled from ER Triage Doc. by RN): pt presents to the ED c/o vomiting blood that started this morning when she woke up. pt reports she is 8 weeks and this is her first. pt states she is use to vomiting but started vomiting blood this morning and is very concerned. pt reports no diarrhea or abdominal pain. no vaginal discharge. History of Present Illness HPI narrative: Nash Hartley is a 18y female who is currently 8 weeks who presents to the emergency department for complaints of an episode of vomiting blood. Patient states that she has dealt with morning sickness for some time and is followed by OB and takes vitamin B6, which typically helps. She states that she woke up and immediately vomited and noted streaks of blood in it. She reports some mild upper abdominal pain but denies any lower abdominal pain. She reports that she is currently being treated for a urinary tract infection. She denies any fevers. She states that she has not vomited since this incident. She denies any vaginal discharge or bleeding. Related Data Home Medications ?Medication ?Instructions ?Recorded ?Confirmed vits no.130-ferrous fum tab PO 10/06/24 10/06/24 27 mg iron-folic acid 800 mcg tablet ( Vitamin) Previous Rx's ?Medication ?Instructions ?Recorded ondansetron 4 mg disintegrating 4 mg PO Q8H PRN nausea and 06/08/24 tablet vomiting #12 tabs esomeprazole magnesium 20 mg 20 mg PO DAILY 28 days #28 caps 06/14/24 capsule,delayed release ondansetron 4 mg disintegrating 4 mg PO Q6H PRN nausea and 06/14/24 tablet vomiting #10 tabs gzzjvhkkijoavzl-hodaxvtwwoteqtq-XS 5 ml PO Q4H PRN sinus symptoms 07/30/24 2 mg-30 mg-10 mg/5 mL oral syrup #118 mL (Bromfed DM) ondansetron 4 mg disintegrating 4 mg PO QID PRN nausea and 07/30/24 tablet vomiting #10 tabs sulfamethoxazole 800 1 tab PO BID 5 days #10 tabs 07/30/24 mg-trimethoprim 160 mg tablet (Bactrim DS) vits no.124-ferrous fum 1 tab PO DAILY #30 tabs 09/20/24 27 mg iron-folic acid 800 mcg tablet ( Vitamin) doxylamine succinate 25 mg tablet 25 mg PO HS PRN sleep #60 tabs 10/01/24 (Nighttime Sleep-Aid (doxylamine)) pyridoxine (vitamin B6) 25 mg 25 mg PO HS PRN vomiting #60 tabs 10/01/24 tablet fosfomycin tromethamine 3 gram 3 g PO .Q 48 hrs 3 doses #3 ea 10/08/24 oral packet Allergies Allergy/AdvReac Type Severity Reaction Status Date / Time No Known Allergies Allergy Verified 10/06/24 14:41 [facility] Disclaimer: The information contained in this section may have been updated after the patient was seen, as this information can be updated by other users. Medical History (Updated 10/15/24 @ 11:58 by Dennis Fisher MD) Asthma Seasonal allergies Surgical History (Updated 10/06/24 @ 14:46 by Lalit Marquez MA) Hx of foot surgery History of adenoidectomy History of tonsillectomy Social History Smoking Status: Never smoker second hand exposure: No alcohol intake: never substance use type: denies use current occupational status: other Travel in the last 8 weeks?: None household members: family housing: house number of children: 0 caffeine: Yes Have you lived/traveled outside US in past 30 days?: No Contact w/someone who lives/traveled outside US past 30 days?: No Exposure to someone with infectious disease in past 14 days?: No Do you have a fever (greater than 100.4 F or 38 C)?: No Have you tested positive for COVID-19?: No Exposed to someone with COVID-19 in past 14 days?: No Do you have a sore throat?: No Do you have a cough?: No Do you have any weakness?: No Do you have any diarrhea?: No Are you experiencing any unusual bleeding?: No Do you have any muscle aches/pain?: No Do you have any abdominal pain?: No Are you experiencing loss of taste or smell?: No Other Medical History Have you received the Flu Vaccine for this season: No Have you received the Pneumonia Vaccine: No ROS Obtained: Yes Systems reviewed as appropriate & no additional complaints except as documented Physical Exam General General appearance: alert and in no apparent distress Head Head exam: atraumatic Eye Eye exam: Present normal appearance ENT ENT exam: Present normal external ear exam Neck Neck exam: Present full ROM Chest Chest inspection: Present symmetric chest wall rise Respiratory Respiratory exam: Present normal lung sounds bilaterally; Absent respiratory distress Cardiovascular Cardiovascular exam: Present regular rate and normal rhythm Abdominal Exam Abdominal exam: Present soft and tenderness (Mild epigastric); Absent distention or guarding Extremities Exam Extremities exam: Present normal inspection Back Exam Back exam: Present normal inspection Neurological Exam Neurological exam: Present alert and oriented X3 Psychiatric Psychiatric exam: Present normal affect Skin Skin exam: Present warm and dry Medical Decision Making Medical Records Screening: Per USPSTF and CDC recommendations, given the prevalence of disease in our region, it is our hospital?s policy to screen for HIV and viral Hepatitis for all patients aged 18 and over and those with ongoing risk factors. Abhijeet Inquiry Pt receiving controlled substance: No Vital Signs: 10/15/24 10:24 10/15/24 11:00 10/15/24 12:03 Temperature 97.9 F 97.9 F Temperature Source Oral Pulse Rate 80 80 Pulse Rate [Right] 89 Respiratory Rate 18 18 Blood Pressure 133/76 133/76 Blood Pressure [Right Arm] 132/80 Blood Pressure Mean [Right Arm] 97 Blood Pressure Source [Right Arm] Automatic Cuff Blood Pressure Position [Right Arm] Sitting 02 Sat by Pulse Oximetry 100 99 Oxygen Delivery Method Room Air Lab Data Lab Results 10/15/24 10:28: WBC 7.2, RBC 4.77, Hgb 13.1, Hct 39.9, MCV 83.6, MCH 27.5, MCHC 32.8, RDW 13.4, Plt Count 241, MPV 11.5 H, Neut % (Auto) 61.3, Lymph % (Auto) 30.4, Mobile % (Auto) 7.0, Eos % (Auto) 0.6, Baso % (Auto) 0.3, Neut # (Auto) 4.4, Lymph # (Auto) 2.2, Mobile # (Auto) 0.5, Eos # (Auto) 0.0, Baso # (Auto) 0.0, Sodium 136, Potassium 3.8, Chloride 106, Carbon Dioxide 23, Anion Gap 10.8, BUN 10, Creatinine 0.60, Estimated Creat Clear 255, Estimated GFR 129, Est GFR ( Amer) 156, Glucose 99, Calcium 9.5, Total Bilirubin 0.7, AST 25, ALT 17, Alkaline Phosphatase 51, Total Protein 7.4, Albumin 4.3, Globulin 3.1, Albumin/Globulin Ratio 1.4, Lipase 53 10/15/24 11:32: Urine Color Yellow, Urine Appearance Sl cloudy, Urine pH 8.0, Ur Specific [place] 1.020, Urine Protein Negative, Urine Glucose (UA) Negative, Urine Ketones Trace, Urine Blood Negative, Urine Nitrate Negative, Urine Bilirubin Negative, Urine Urobilinogen 0.2, Ur Leukocyte Esterase 1+ A, Urine RBC Occasional, Urine WBC None, Ur Squamous Epith Cells 20-50, Urine Bacteria 1+ 10/15/24 10:28 10/15/24 10:28 Orders (Tests/Meds): ORDERS Category Date Time Status CBC w/Auto Diff [Complete Blood Count Auto Diff] Stat Lab 10/15/24 10:28 Completed CMP [Comprehensive Metabolic Panel] Stat Lab 10/15/24 10:28 Completed Lipase Stat Lab 10/15/24 10:28 Completed UA [Urinalysis and Microscopic] Stat Lab 10/15/24 11:32 Completed Urine Culture Stat Micro 10/15/24 11:32 Received Medical Decision Narrative: Nash Hartley is a 18y female who is currently 8 weeks who presents to the emergency department for complaints of an episode of vomiting blood. Patient states that she has dealt with morning sickness for some time and is followed by OB and takes vitamin B6, which typically helps. She states that she woke up and immediately vomited and noted streaks of blood in it. She reports some mild upper abdominal pain but denies any lower abdominal pain. She reports that she is currently being treated for a urinary tract infection. She denies any fevers. She states that she has not vomited since this incident. She denies any vaginal discharge or bleeding. On arrival, patient is hemodynamically stable, heart rate within normal limits, breathing comfortably on room air with oxygen saturation at appropriate levels. Afebrile. He physical exam, as stated above, reveals an overall well-appearing female in no acute distress. She has some mild epigastric tenderness without guarding or rebound. Cardiopulmonary exam is unremarkable. Oropharyngeal exam demonstrated no redness or swelling. Differential diagnosis includes, but is not limited to: Hyperemesis gravidarum, Emma-Parisi tear, peptic ulcer disease, GERD, among others. CBC unremarkable nonactionable. CMP unremarkable nonactionable without significant anemia. CBC without leukocytosis. Urine with 1+ bacteria the patient is already taking cefdinir and was encouraged to complete the course. Patient showed a picture of the episode of vomiting she had this morning and it would like dry mucous that is light pink. Chart review shows the patient had a ultrasound on 13 October that showed crown-rump length estimated 8 weeks and 1 day at that time. Viable intrauterine noted. Patient's workup is grossly unremarkable. She has not had any additional vomiting since she has been in the emergency department. Is felt that the mucus that she was displaying was likely some dried blood/stomach contents. She was encouraged to follow-up with her OB physician. Return precautions were given. All questions were answered. She demonstrated understanding and was agreement this plan. She was then discharged from the emergency department in stable condition. Critical Care Critical Care Time Critical Care Time: No
[2024-10-15 10:47] LABS: Basophils % 0.3 % (0.1-2.0); Eosinophils % 0.6 % (0.1-12.0); Hematocrit 39.9 % (37.0-47.0); Hemoglobin 13.1 g/dL (12.2-16.2); Immature Granulocytes # 0.03 10^3uL; Immature Granulocytes % 0.4 %; Lymphocytes # 2.2 K/mm3 (0.7-4.5); Lymphocytes % 30.4 % (10-50); Mean Corpuscular HGB Conc 32.8 g/dL (31.8-35.4); Mean Corpuscular Hemoglobin 27.5 pg (27.0-31.2); Mean Corpuscular Volume 83.6 fl (81-99); Mean Platelet Volume 11.5 fl (7.4-10.4); Monocytes # 0.5 K/mm3 (0.1-1.0); Neutrophils # 4.4 K/mm3 (1.8-7.8); Neutrophils % 61.3 % (37.0-80.0); Nucleated Red Blood Cells # 0 10^3/uL; Nucleated Red Blood Cells % 0 %; Platelet Count 241 K/mm3 (142-424); Red Blood Count 4.77 M/mm3 (4.20-5.40); Red Cell Distribution Width 13.4 % (11.5-17.5); White Blood Count 7.2 K/mm3 (4.5-13.0)
[2024-10-15 10:52] LABS: Alanine Aminotransferase 17 U/L (12-78); Albumin Level 4.3 g/dl (3.5-5.0); Albumin/Globulin Ratio 1.4 (1.1-1.8); Alkaline Phosphatase 51 U/L (38-126); Anion Gap 10.8 mEq/L (5-15); Aspartate Amino Transferase 25 U/L (14-36); Bilirubin,Total 0.7 mg/dl (0.2-1.3); Blood Urea Nitrogen 10 mg/dl (7-17); Calcium 9.5 mg/dl (8.4-10.2); Carbon Dioxide 23 mmol/L (22.0-30.0); Chloride 106 mmol/L (98-107); Creatinine Clearance Estimated 255 mL/min (50-200); Estimated Glomerular Filt Rate 129 ml/min (>60); GFR (African American) 156 ML/MIN (>60); Globulin 3.1 g/dL (1.3-3.2); Glucose 99 mg/dl (74-100); Lipase 53 U/L (23-300); Potassium 3.8 mmoL/L (3.5-5.1); Sodium 136 mmol/L (136-145); Total Protein,Serum 7.4 g/dl (6.3-8.2)
[2024-10-15 11:00] VITALS: BP 133/76; PULSE 80; O2SAT 99
[2024-10-15 11:36] LABS: Microscopic, Urine URINE MICROSCOPIC (MICROSCOPIC)
[2024-10-15 11:37] LABS: Appearance,Urine SL CLOUDY (Clear); Bilirubin,Urine Negative (Negative); Blood, Urine Negative (Negative); Color,Urine YELLOW (Yellow); Glucose,Urine (UA) Negative (Negative); Ketones,Urine TRACE (Negative); Leukocyte Esterase,Urine 1+ (Negative); Nitrate,Urine Negative (Negative); Protein,Urine Negative (Negative); Urobilinogen,Urine 0.2 EU/dl (0.2)
[2024-10-15 12:03] VITALS: BP 133/76; PULSE 80; RESP 18; TEMP 36.6; O2SAT 99
[2024-10-15 12:21] LABS: Bacteria,Urine 1+ /lpf; RBC,Urine Occasional #/hpf (0-3); Squamous Epithelial Cell,Urine 20-50 #/hpf (0-5)
== END 2024-10-15 12:03 | disposition home or self-care (01) ==
PROVIDERS: Emergency Provider Student in an Organized Health Care Education/Training Program; PCP Nurse Practitioner
DX: O99.891 Other specified diseases and conditions complicating pregnancy (principal); R11.10 Vomiting, unspecified; Z3A.08 8 weeks gestation of pregnancy
CPT/HCPCS: 80053; 81001; 83690; 85025; 87086; 99284

== ENCOUNTER 2024-10-17 18:52 | Emergency (ER) | payer OTHER, SELFPAY ==
[2024-10-17 19:02] VITALS: BP 137/86; PULSE 99; RESP 18; TEMP 37; O2SAT 100; BMI 36.9
--- NOTE | 2024-10-17 19:16 | ED_ITS ---
Discharge Plan Disposition Patient Disposition: Home, Self-Care Condition: Good Prescriptions Prescriptions: New calcium carbonate [Antacid (calcium carbonate)] 200 mg calcium (500 mg) tablet,chewable 200 mg PO DAILY Qty: 30 0RF cephalexin 500 mg capsule 500 mg PO Q6H 7 Days Qty: 28 0RF Discontinued fosfomycin tromethamine 3 gram packet 3 g PO .Q 48 hrs Qty: 3 0RF Rx Instructions: Take one dose by mouth every 48 hours. For a total of 3 doses. esomeprazole magnesium 20 mg capsule,delayed release(DR/EC) 20 mg PO DAILY 28 Days Qty: 28 0RF sulfamethoxazole-trimethoprim [Bactrim DS] 800-160 mg tablet 1 tab PO BID 5 Days Qty: 10 0RF No Action Vitamin 27 mg iron- 800 mcg tablet PO Patient Comments: TAKE 1 TABLET BY MOUTH ONCE A DAY ondansetron 4 mg tablet,disintegrating 4 mg PO Q6H PRN (Reason: nausea and vomiting) Qty: 10 0RF Vitamin 27 mg iron- 800 mcg tablet 1 tab PO DAILY Qty: 30 2RF Nighttime Sleep-Aid (doxylamn) 25 mg tablet 25 mg PO HS PRN (Reason: sleep) Qty: 60 0RF pyridoxine (vitamin B6) 25 mg tablet 25 mg PO HS PRN (Reason: vomiting) Qty: 60 0RF Rx Instructions: take one each of the pyridoxine and doxylamine at night as needed for nausea and vomiting. Can take another dose in the morning if symptoms persist. ondansetron 4 mg tablet,disintegrating 4 mg PO Q8H PRN (Reason: nausea and vomiting) Qty: 12 0RF ezfldldunuvvtpk-zwevoosuu-DP [Bromfed DM] 2-30-10 mg/5 mL syrup 5 ml PO Q4H PRN (Reason: sinus symptoms) Qty: 118 0RF ondansetron 4 mg tablet,disintegrating 4 mg PO QID PRN (Reason: nausea and vomiting) Qty: 10 0RF Referrals Follow up/Referrals: Mauricio (ED)Vidhya APRN [Primary Care Provider] - See instructions Activity Restrictions/Add. Instructions Additional Instructions/Restrictions: As we discussed, I prescribed a course of antibiotics to treat what appears to be a UTI. Please do not take the esomeprazole that you were previously prescribed for gastric reflux. I prescribed a different medication that is more established to be safe during . Please take the Zofran or vitamin B6 you are prescribed for nausea. Please return with any new or worsening symptoms and follow-up with your OB doctor Clinical Impressions Clinical Impression: Acute cystitis during Instructions Patient Instructions: DI for Diarrhea and Traveler's Diarrhea -- Adult, DI for Diarrhea and Traveler's Diarrhea -- Child, DI for Nausea -- Adult, DI for Nausea -- Child Print Language Print Language: Bahamian Discharge ED Provider: Vincent Live General Adult HPI General Chief complaint: Nausea/Vomiting/Diarrhea Stated complaint: 8 Weeks Antipartum; Nausea; Can't hold fluids Time Seen by Provider: 10/17/24 19:16 Mode of Arrival: Ambulatory Source of Information: Patient Description of Symptoms (Recalled from ER Triage Doc. by RN): Pt states she is 8 weeks , and has been vomiting. Pt states she is unable to hold any food or fluid down. Pt states the nausea is constant. History of Present Illness HPI narrative: The patient presents with a chief complaint of severe nausea and vomiting. She reports being unable to hold down water, applesauce, or crackers since yesterday evening. The patient describes this as different from her usual - related all-day sickness, which she had been adjusting to. The patient is experiencing stomach pain and cramping, particularly in the upper abdominal region. She denies any vaginal bleeding. Associated symptoms include sweating and feeling hot when vomiting. The patient reports a recent history of a urinary tract infection (UTI) for which she was prescribed antibiotics (flutamide) a couple of days ago during a previous ED visit. During that visit, she had also experienced vomiting with blood. The patient has a known history of acid reflux and allergies. This is her first , and she has been following up with an OB doctor, Dr. Elian Rosa. She had an initial transvaginal ultrasound to rule out ectopic , and a recent ultrasound showed normal progression of the with a heart rate of 147 bpm. Additionally, the patient is currently 8 weeks and has been taking flutamide every 4 to 8 hours, having completed 3 doses for UTI treatment. She mentions having allergies, but no specific allergens or reactions are provided. The patient also reports difficulty urinating. Please note that above description of symptoms, in this electronic medical record under categorization of recalled from ER triage doctor by RN are reflective of an initial nursing assessment, however, is not reflective of my full history and physical exam that was personally taken and clarified. Consequentially, this preceding description of symptoms, which may include the patient's categorized chief complaint in the EMR, do not reflect my personal clinical impression, and the ultimate description of history of present illness and patient stated complaints should be deferred to this section of the note. Unless stated otherwise or congruent with this section of the note, additional signs, symptoms, or incongruence should be interpreted as inaccurate with my clinical impression. Related Data Home Medications ?Medication ?Instructions ?Recorded ?Confirmed vits no.130-ferrous fum tab PO 10/06/24 10/06/24 27 mg iron-folic acid 800 mcg tablet ( Vitamin) Previous Rx's ?Medication ?Instructions ?Recorded ondansetron 4 mg disintegrating 4 mg PO Q8H PRN nausea and 06/08/24 tablet vomiting #12 tabs ondansetron 4 mg disintegrating 4 mg PO Q6H PRN nausea and 06/14/24 tablet vomiting #10 tabs xwfssjwtcylqiur-cojjjtaretjmcjh-CZ 5 ml PO Q4H PRN sinus symptoms 07/30/24 2 mg-30 mg-10 mg/5 mL oral syrup #118 mL (Bromfed DM) ondansetron 4 mg disintegrating 4 mg PO QID PRN nausea and 07/30/24 tablet vomiting #10 tabs vits no.124-ferrous fum 1 tab PO DAILY #30 tabs 09/20/24 27 mg iron-folic acid 800 mcg tablet ( Vitamin) doxylamine succinate 25 mg tablet 25 mg PO HS PRN sleep #60 tabs 10/01/24 (Nighttime Sleep-Aid (doxylamine)) pyridoxine (vitamin B6) 25 mg 25 mg PO HS PRN vomiting #60 tabs 10/01/24 tablet calcium carbonate (Antacid 200 mg PO DAILY #30 tabs 10/17/24 (calcium carbonate)) cephalexin 500 mg capsule 500 mg PO Q6H 7 days #28 caps 10/17/24 Allergies Allergy/AdvReac Type Severity Reaction Status Date / Time No Known Allergies Allergy Verified 10/06/24 14:41 PFSH PFS Disclaimer: The information contained in this section may have been updated after the patient was seen, as this information can be updated by other users. Medical History (Updated 10/17/24 @ 21:59 by Vincent Live MD) Asthma Seasonal allergies Surgical History (Updated 10/06/24 @ 14:46 by Lalit Marquez MA) Hx of foot surgery History of adenoidectomy History of tonsillectomy Social History Smoking Status: Never smoker second hand exposure: No alcohol intake: never substance use type: denies use current occupational status: other Travel in the last 8 weeks?: None household members: family housing: house number of children: 0 caffeine: Yes Have you lived/traveled outside [place] in past 30 days?: No Contact w/someone who lives/traveled outside US past 30 days?: No Exposure to someone with infectious disease in past 14 days?: No Do you have a fever (greater than 100.4 F or 38 C)?: No Have you tested positive for COVID-19?: No Exposed to someone with COVID-19 in past 14 days?: No Do you have a sore throat?: No Do you have a cough?: No Do you have any weakness?: No Do you have any diarrhea?: No Are you experiencing any unusual bleeding?: No Do you have any muscle aches/pain?: No Do you have any abdominal pain?: No Are you experiencing loss of taste or smell?: No Other Medical History Have you received the Flu Vaccine for this season: No Have you received the Pneumonia Vaccine: No ROS Obtained: Yes other As per HPI Physical Exam General General appearance: alert and in no apparent distress Head Head exam: atraumatic and normocephalic Eye Eye exam: Present normal appearance Neck Neck exam: Present normal inspection Chest Chest inspection: Present normal inspection and symmetric chest wall rise Respiratory Respiratory exam: Present normal lung sounds bilaterally; Absent respiratory distress Cardiovascular Cardiovascular exam: Present regular rate and normal rhythm Abdominal Exam Abdominal exam: Present soft; Absent distention or tenderness Neurological Exam Neurological exam: Present alert and oriented X3 Psychiatric Psychiatric exam: Present normal affect and normal mood Skin Skin exam: Present warm and dry Medical Decision Making Medical Records Medical records reviewed: Yes I reviewed the patient's medical records. Screening: Per USPSTF and CDC recommendations, given the prevalence of disease in our region, it is our hospital?s policy to screen for HIV and viral Hepatitis for all patients aged 18 and over and those with ongoing risk factors. Abhijeet Inquiry Pt receiving controlled substance: No Vital Signs: 10/17/24 19:02 10/17/24 22:08 Temperature 98.6 F 98.3 F Temperature Source Oral Oral Pulse Rate 71 Pulse Rate [Right] 99 H Respiratory Rate 18 18 Blood Pressure 124/74 Blood Pressure [Right Arm] 137/86 Blood Pressure Mean [Right Arm] 103 Blood Pressure Source Automatic Cuff Blood Pressure Source [Right Arm] Automatic Cuff Blood Pressure Position Sitting Blood Pressure Position [Right Arm] Sitting 02 Sat by Pulse Oximetry 100 Oxygen Delivery Method Room Air Lab Data Lab Results 10/17/24 19:45: Urine Color Yellow, Urine Appearance Sl cloudy, Urine pH 6.0, Ur Specific [place] >= 1.030, Urine Protein Trace, Urine Glucose (UA) Negative, Urine Ketones 2+, Urine Blood Negative, Urine Nitrate Negative, Urine Bilirubin 1+ A, Urine Urobilinogen 2.0, Ur Leukocyte Esterase 1+ A, Urine RBC Occasional, Urine WBC 5-10, Ur Squamous Epith Cells 5-10, Urine Bacteria 4+ 10/17/24 20:04: Sodium 136, Potassium 4.0, Chloride 105, Carbon Dioxide 25, Anion Gap 10.0, BUN 14 D, Creatinine 0.60, Estimated Creat Clear 255, Estimated GFR 129, Est GFR ( Amer) 156, Glucose 98, Calcium 9.6, Total Bilirubin 0.7, AST 36 D, ALT 19, Alkaline Phosphatase 51, Total Protein 7.6, Albumin 4.5, Globulin 3.1, Albumin/Globulin Ratio 1.5, Lipase 59, TSH 0.81, Free T4 1.32, H CG, Quant [id number] H 10/17/24 20:18: WBC 9.8 D, RBC 4.57, Hgb 12.6, Hct 38.1, MCV 83.4, MCH 27.6, MCHC 33.1, RDW 13.2, Plt Count 228, MPV 11.3 H, Neut % (Auto) 60.9, Lymph % (Auto) 29.3, [place] % (Auto) 8.4, Eos % (Auto) 0.8, Baso % (Auto) 0.3, Neut # (Auto) 5.9, Lymph # (Auto) 2.9, [place] # (Auto) 0.8, Eos # (Auto) 0.1, Baso # (Auto) 0.0 10/17/24 20:18 10/17/24 20:04 Orders (Tests/Meds): ED MEDICATIONS Discontinued Medications Generic Name Dose Route Start Last Admin Trade Name Freq PRN Reason Stop Dose Admin Ondansetron HCl 4 mg 10/17/24 20:18 10/17/24 20:23 Ondansetron 4mg/2ml Vial IV 10/17/24 20:19 4 mg ONCE ONE Administration Ondansetron HCl 4 mg 10/17/24 20:27 10/17/24 20:28 Ondansetron 4mg Odt SL 10/17/24 20:28 4 mg ONCE ONE Administration ORDERS Category Date Time Status POCUS Point of Care (ER Only) Stat Exams 10/17/24 20:39 Completed Beta HCG, Quant [HCG,Quantitative] Stat Lab 10/17/24 20:04 Completed CBC w/Auto Diff [Complete Blood Count Auto Diff] Stat Lab 10/17/24 20:18 Completed CMP [Comprehensive Metabolic Panel] Stat Lab 10/17/24 20:04 Completed Free T4 (Free Thyroxine) Stat Lab 10/17/24 20:04 Completed Lipase Stat Lab 10/17/24 20:04 Completed TSH [Thyroid Stimulating Hormone] Stat Lab 10/17/24 20:04 Completed Urinalysis and Microscopic Stat Lab 10/17/24 19:45 Completed Urine Culture Stat Micro 10/17/24 19:45 Completed Medical Decision Narrative: Patient with history and exam per above presenting for evaluation of nausea, vomiting Diagnoses considered include related nausea and vomiting, hyperemesis gravidarum, cystitis, pyelonephritis, among others. I have a low index of suspicion for etiologies such as appendicitis, cholecystitis, given benign abdominal exam and no reported fevers or chills. ED workup and treatment included: ED MEDICATIONS Discontinued Medications Generic Name Dose Route Start Last Admin Trade Name Freq PRN Reason Stop Dose Admin Ondansetron HCl 4 mg 10/17/24 20:18 10/17/24 20:23 Ondansetron 4mg/2ml Vial IV 10/17/24 20:19 4 mg ONCE ONE Administration Ondansetron HCl 4 mg 10/17/24 20:27 10/17/24 20:28 Ondansetron 4mg Odt SL 10/17/24 20:28 4 mg ONCE ONE Administration ORDERS Category Date Time Status POCUS Point of Care (ER Only) Stat Exams 10/17/24 20:39 Completed Beta HCG, Quant [HCG,Quantitative] Stat Lab 10/17/24 20:04 Completed CBC w/Auto Diff [Complete Blood Count Auto Diff] Stat Lab 10/17/24 20:18 Completed CMP [Comprehensive Metabolic Panel] Stat Lab 10/17/24 20:04 Completed Free T4 (Free Thyroxine) Stat Lab 10/17/24 20:04 Completed Lipase Stat Lab 10/17/24 20:04 Completed TSH [Thyroid Stimulating Hormone] Stat Lab 10/17/24 20:04 Completed Urinalysis and Microscopic Stat Lab 10/17/24 19:45 Completed Urine Culture Stat Micro 10/17/24 19:45 Completed Labs were independently interpreted by me, significant for no leukocytosis, pyuria, leukocyte esterase positive, bacteriuria Patient was able to tolerate p.o. intake without difficulty. She will be treated with course of antibiotics for cystitis in . Upon further clarification she reports she completed course of antibiotics several days ago, previous culture with evidence of contamination and thus unable to provide guidance in antimicrobial therapy. I discussed my clinical impression with patient and answered all questions. At this time, the evidence for any other entities in the differential is insufficient to warrant any further testing or ED observation. This was explained to the patient. The patient was advised that persistent or worsening symptoms require further evaluation. Critical Care Critical Care Time Critical Care Time: No
--- NOTE | 2024-10-17 19:46 | PC.NURSE ---
Pt ambulatory to bathroom to provide urine sample
[2024-10-17 19:55] LABS: Appearance,Urine SL CLOUDY (Clear); Blood, Urine Negative (Negative); Color,Urine YELLOW (Yellow); Glucose,Urine (UA) Negative (Negative); Ketones,Urine 2+ (Negative); Leukocyte Esterase,Urine 1+ (Negative); Microscopic, Urine URINE MICROSCOPIC (MICROSCOPIC); Nitrate,Urine Negative (Negative); Protein,Urine TRACE (Negative); Specific Gravity, Urine >= 1.030 (1.005-1.030)
[2024-10-17 20:09] LABS: Bilirubin,Urine 1+ (Negative)
[2024-10-17 20:13] LABS: RBC,Urine Occasional #/hpf (0-3)
[2024-10-17 20:14] LABS: Bacteria,Urine 4+ /lpf
[2024-10-17] MEDS: ONDANSETRON 4MG/2ML VIAL 4 MG IV (20:23)
[2024-10-17 20:24] LABS: Basophils % 0.3 % (0.1-2.0); Eosinophils # 0.1 Kmm3 (0.0-0.4); Eosinophils % 0.8 % (0.1-12.0); Hematocrit 38.1 % (37.0-47.0); Hemoglobin 12.6 g/dL (12.2-16.2); Immature Granulocytes # 0.03 10^3uL; Immature Granulocytes % 0.3 %; Lymphocytes # 2.9 K/mm3 (0.7-4.5); Lymphocytes % 29.3 % (10-50); Mean Corpuscular HGB Conc 33.1 g/dL (31.8-35.4); Mean Corpuscular Hemoglobin 27.6 pg (27.0-31.2); Mean Corpuscular Volume 83.4 fl (81-99); Mean Platelet Volume 11.3 fl (7.4-10.4); Monocytes # 0.8 K/mm3 (0.1-1.0); Monocytes % 8.4 % (1.7-9.3); Neutrophils # 5.9 K/mm3 (1.8-7.8); Neutrophils % 60.9 % (37.0-80.0); Nucleated Red Blood Cells # 0 10^3/uL; Nucleated Red Blood Cells % 0 %; Platelet Count 228 K/mm3 (142-424); Red Blood Count 4.57 M/mm3 (4.20-5.40); Red Cell Distribution Width 13.2 % (11.5-17.5); White Blood Count 9.8 K/mm3 (4.5-13.0)
[2024-10-17 20:25] LABS: Albumin Level 4.5 g/dl (3.5-5.0); Chloride 105 mmol/L (98-107); Sodium 136 mmol/L (136-145)
[2024-10-17 20:28] LABS: Alanine Aminotransferase 19 U/L (12-78); Albumin/Globulin Ratio 1.5 (1.1-1.8); Alkaline Phosphatase 51 U/L (38-126); Aspartate Amino Transferase 36 U/L (14-36); Bilirubin,Total 0.7 mg/dl (0.2-1.3); Blood Urea Nitrogen 14 mg/dl (7-17); Carbon Dioxide 25 mmol/L (22.0-30.0); Creatinine Clearance Estimated 255 mL/min (50-200); Estimated Glomerular Filt Rate 129 ml/min (>60); GFR (African American) 156 ML/MIN (>60); Globulin 3.1 g/dL (1.3-3.2); Lipase 59 U/L (23-300); Total Protein,Serum 7.6 g/dl (6.3-8.2)
[2024-10-17] MEDS: ONDANSETRON 4MG ODT 4 MG SL (20:28)
[2024-10-17 20:29] LABS: Calcium 9.6 mg/dl (8.4-10.2); Glucose 98 mg/dl (74-100)
[2024-10-17 20:55] LABS: Free T4 (Free Thyroxine) 1.32 ng/dl (0.78-2.19)
[2024-10-17 21:00] LABS: Thyroid Stimulating Hormone 0.81 uIU/mL (0.465-4.68)
--- NOTE | 2024-10-17 21:23 | PC.NURSE ---
Pt provided mi alfred and crackers for PO challenge.
[2024-10-17 22:08] VITALS: BP 124/74; PULSE 71; RESP 18; TEMP 36.8; O2SAT 98
== END 2024-10-17 22:08 | disposition home or self-care (01) ==
PROVIDERS: Emergency Provider Emergency Medicine; PCP Nurse Practitioner
DX: O23.41 Unspecified infection of urinary tract in pregnancy, first trimester (principal); R11.2 Nausea with vomiting, unspecified; Z3A.08 8 weeks gestation of pregnancy
CPT/HCPCS: 80053; 81001; 83690; 84439; 84443; 84702; 85025; 87086; 96374; 99284; J2405; Q0162

== ENCOUNTER 2025-01-04 13:02 | Outpatient (CLI) | payer OTHER, SELFPAY ==
--- NOTE | 2025-01-04 13:00 | US_ITS ---
PROCEDURE: US OB /MATERNAL DETAIL CLINICAL INDICATION: 20 week anatomy COMPARISON: US US OB TRANSVAGINAL from 09/20/2024 US US OB <= 14 WEEKS FETUS from 10/13/2024 FINDINGS: Transabdominal sonographic images of the pelvis were obtained. From her established due date she is 20 weeks 6 days. Single viable intrauterine gestation. Cephalic position. Placenta: Anteriorplacenta grade 1. There is an average amount of fluid. The cervix appears satisfactory. Closed and measuring 3.58 cm in length. Complete survey performed and was unremarkable on the submitted images as in PACS. No discrete anomalies identified on survey imaging by technologist. Active fetus. Three-vessel cord with satisfactory umbilical cord insertion. 4- chamber heart noted. [place], aortic arch, LVOT, RVOT, three-vessel view appear normal. Survey of brain & ventricles Unremarkable. Cerebellum, thalamus, choroid plexus, cisterna magna appear normal. Face and neck survey unremarkable. Profile, nasion, lips and nose appeared normal. Diaphragm and chest views unremarkable. Abdomen: Both kidneys noted and unremarkable. Stomach and bladder noted and satisfactory. Spine: Survey of the spine satisfactory with no anomalies identified nor imaged. Cervical, thoracic, lower spine appear normal. Both arms and legs noted. Amniotic Fluid: Adequate. MVP 4.56 cm Measurements: Average ultrasound age 21weeks. Estimated due date by ultrasound age 1205/17/2025. Estimated weight 369g BPD = 21weeks 2days HC = 21weeks 0 days AC = 20weeks 6days FL = 20weeks 4days Growth Percentile= 34 Heart Rate = 149bpm Cerebellum = 18weeks 4days Humerus = 20weeks 6days HC/AC is 1.19 FL/BPD is 0.67 FL/AC is 0.21 IMPRESSION: 1. Viable fetus in the cephalic presentation with an anterior placenta grade 1. 2. The fluid is within normal limits with an MVP 4.56 cm. 3. Anatomical scan appears normal. 4. biometry is consistent with the dates. Dictated by: Elian Mills MD 01/04/2025 15:28 Elian Mills MD in [facility] 01/04/2025 15:28
--- OUTSIDE RECORDS SUMMARY | 2025-01-04 13:05 | XMS_ITS | Clinical Summary ---
Author Organization Healthcare Address [address] [place] [address] Care Team Providers Care Beef Grader Name Role Phone Lucretia Lang APRN Primary Care Provider [phone] Family History Medical History Relation Name Comments Drug abuse Father Drug abuse Father's Sister Drug abuse Mother Relation Name Status Comments Father Father's Sister Mother Social History Tobacco Use Types Packs/Day Years Used Date Smoking Tobacco: Never Comments Unknown Sex and Gender Information Value Date Recorded Sex Assigned at Not on file Legal Sex Female 6:26 PM EDT Gender Identity Not on file Sexual Orientation Not on file Plan of Treatment Health Maintenance Due Date Last Done Comments [facility]-Depression Screening 2004 [facility]-/Child/Adol SDOH Screenings 2004 [facility]- SDOH Screenings 2022 [facility]-Adult SDOH Screenings 2022 [id number] Vaccine ( - season) 2024 [facility]-Influenza Vaccine (#1) 2025 05/06/2014 [facility]-DTaP,Tdap,and Td Vaccines (7 - Td or Tdap) 12/04/2025 12/05/2015, 12/14/2008, 03/21/2006, Additional history exists [facility]-Zoster Vaccines (1 of 2) 2054 12/05/2015, 12/13/2005 [facility]-HIB Vaccines Completed 12/13/2005, , 02/20/2005 [facility]-Hepatitis B Vaccines Completed 006, 02/20/2005, 2004 [facility]-Pneumococcal Vaccine: Pediatrics (0 to 5 Years) and At-Risk Patients (6 to 49 Years) Aged Out 03/21/2006, 06/12/2005, 04/10/2005, Additional history exists No longer eligible based on patient's age to complete this topic [facility]-Hepatitis A Vaccines Completed 06/23/2006, 11/24 [facility]-IPV Vaccines Completed 12/14/2008, , 04/10/2005, Additional history exists [facility]-Varicella Vaccines Completed 12/05/2015, 2005 HPV Vaccines Completed 08/22/2016, 01/25, 12/05/2015 [facility]-Rotavirus Vaccines Aged Out No lo nger eligible based on patient's age to complete this topic Insurance NICHOLAS HARTLEY [id number] [employer] [place] Care Teams Beef Grader Relationship Specialty Start Date End Date Lucretia Lang APRN [address] [place] [address] N[place] Hidalgo [id number] PCP - General 10/06/20
== END 2025-01-04 23:59 | disposition home or self-care (01) ==
LOC: RAD 13:03
PROVIDERS: PCP Nurse Practitioner; Visit Provider Nurse Practitioner Obstetrics & Gynecology
DX: O23.12 Infections of bladder in pregnancy, second trimester (principal); N30.00 Acute cystitis without hematuria; Z3A.20 20 weeks gestation of pregnancy
CPT/HCPCS: 76811

== ENCOUNTER 2025-01-24 11:12 | Emergency (ER) | payer OTHER, SELFPAY ==
[2025-01-24 11:16] VITALS: BP 122/83; PULSE 85; RESP 17; TEMP 37; O2SAT 99; BMI 21.2
[2025-01-24 11:23] LABS: Coronavirus 19, PCR Not Detected (NotDetected); Influenza A, PCR Not Detected (NotDetected); Influenza B, PCR Not Detected (NotDetected)
--- OUTSIDE RECORDS SUMMARY | 2025-01-24 11:28 | XMS_ITS | Clinical Summary ---
Author Organization Healthcare Address [address] [place] [address] Care Team Providers Care Academic Advisement Director Name Role Phone Lucretia Lagn CHIEF CONCIERGE Primary Care Provider [phone] Family History Medical History Relation Name Comments [...] Date Last Done Comments [facility]-Depression Screening 2004 [facility]-Infant/Child/Adol SDOH Screenings 2004 [facility]- SDOH Screenings 2022 [facility]-Adult SDOH Screenings 2022 [id number] Vaccine ( - season) 2024 [facility]-Influenza Vaccine [...] to complete this topic Insurance NICHOLAS HARTLEY [id number] [employer] [place] Care Teams Academic Advisement Director Relationship Specialty Start Date End Date Lucretia Lang APRN [address] [place] [address] [place] H[place] [id number] PCP - General 10/06/20
--- NOTE | 2025-01-24 11:39 | ED_ITS ---
<Statement entered by Dennis Fisher MD - 01/24/25 13:30> I was consulted by the ELIGIO, and we discussed the complexity of the problems being addressed. I approve the treatment and management plan for this patient's care in the emergency department, thus performing a substantive portion of the medical decision making. Dennis Fisher MD Discharge Plan Disposition Patient Disposition: Home, Self-Care Condition: Good Prescriptions Prescriptions: No Action Vitamin 27 mg iron- 800 mcg tablet PO Patient Comments: TAKE 1 TABLET BY MOUTH ONCE A DAY ferrous gluconate 324 mg (38 mg iron) tablet 324 mg PO DAILY Qty: 30 6RF pyridoxine (vitamin B6) 25 mg tablet 25 mg PO HS PRN (Reason: vomiting) Qty: 60 0RF Rx Instructions: take one each of the pyridoxine and doxylamine at night as needed for nausea and vomiting. Can take another dose in the morning if symptoms persist. ondansetron 4 mg tablet,disintegrating 4 mg PO QID PRN (Reason: nausea and vomiting) Qty: 10 0RF calcium carbonate [Antacid (calcium carbonate)] 200 mg calcium (500 mg) tablet,chewable 200 mg PO DAILY Qty: 30 0RF Referrals Follow up/Referrals: Vidhya Martínez APRN [Primary Care Provider, Medical] - See instructions Activity Restrictions/Add. Instructions Additional Instructions/Restrictions: You were seen for a URI. Please follow up with your PCP this week for recheck. Return to the ER for worsening or trouble breathing. Clinical Impressions Clinical Impression: Upper respiratory infection Stand Alone Forms Stand Alone Forms: Work/School Release Instructions Patient Instructions: DI for Viral Upper Respiratory Infection -- Adult Print Language Print Language: French Discharge ED Provider: Dennis Fisher General Adult HPI General Chief complaint: Upper Respiratory Infection Stated complaint: SOB, body aches, diarhhea, covid exposer Time Seen by Provider: 01/24/25 11:16 Mode of Arrival: Ambulatory Source of Information: Patient Description of Symptoms (Recalled from ER Triage Doc. by RN): pt c/o being SOA, congestion, nasal drainage and body aches for the last 3 days. Reports a fever of 101 last night that she treated w/ tylenol. she did have a recent exposure to covid at work. pt is currently 22 weeks . History of Present Illness HPI narrative: Patient presents with nasal congestion, fever, body aches for 3 days. She denies any significant cough. She reports that she has to breathe from her mouth due to congestion. She has nonbloody diarrhea without vomiting. She is currently 22 weeks gestation. Coworkers have KARISSA FLORES complaint: congestion, fever Onset (ago): day(s) (3) Radiation: non-radiation Severity: moderate Consistency: constant Relieving factors: none Exacerbating factors: none Associated symptoms: fever/chills; negative cough Related Data Home Medications ?Medication ?Instructions ?Recorded ?Confirmed vits no.130-ferrous fum tab PO 10/06/2401/09 27 mg iron-folic acid 800 mcg tablet ( Vitamin) Previous Rx's ?Medication ?Instructions ?Recorded ondansetron 4 mg disintegrating 4 mg PO QID PRN nausea and 07/30/24 tablet vomiting #10 tabs pyridoxine (vitamin B6) 25 mg 25 mg PO HS PRN vomiting #60 tabs 10/01/24 tablet calcium carbonate (Antacid 200 mg PO DAILY #30 tabs (calcium carbonate)) ferrous gluconate 324 mg (38 mg 324 mg PO DAILY #30 ta bs 01/01/25 iron) tablet Allergies Allergy/AdvReac Type Severity Reaction Status Date / Time No Known Allergies Allergy Verified 01/09/25 17:16 [facility] Disclaimer: The information contained in this section may have been updated after the patient was seen, as this information can be updated by other users. Medical History Encounter for supervision of other normal , second trimester Asthma Seasonal allergies Surgical History Hx of foot surgery History of adenoidectomy History of tonsillectomy Family History (Updated 01/24/25 @ 11:22 by Maryam Schaffer RN) Other Family history of UT (myocardial infarction) Social History Smoking Status: Never smoker second hand exposure: No alcohol intake: never substance use type: denies use current occupational status: other Travel in the last 8 weeks?: None household members: family housing: house number of children: 0 caffeine: Yes Have you lived/traveled outside US in past 30 days?: No Contact w/someone who lives/traveled outside US past 30 days?: No Exposure to someone with infectious disease in past 14 days?: No Do you have a fever (greater than 100.4 F or 38 C)?: No Have you tested positive for COVID-19?: No Exposed to someone with COVID-19 in past 14 days?: Yes Do you have a sore throat?: Yes Do you have a cough?: Yes Do you have any weakness?: Yes Do you have any diarrhea?: Yes Are you experiencing any unusual bleeding?: No Do you have any muscle aches/pain?: Yes Do you have any abdominal pain?: No Are you experiencing loss of taste or smell?: Yes Other Medical History Have you received the Flu Vaccine for this season: No Have you received the Pneumonia Vaccine: No ROS Obtained: Yes Systems reviewed as appropriate & no additional complaints except as documented Physical Exam General General appearance: alert and in no apparent distress Head Head exam: atraumatic and normocephalic Eye Eye exam: Present normal appearance and EOMI ENT ENT exam: Present normal oropharynx, mucous membranes moist, TM's normal bilaterally and other (significant nasal congestion and inflammation ) Chest Chest inspection: Present symmetric chest wall rise Respiratory Respiratory exam: Present normal lung sounds bilaterally; Absent wheezes or stridor Cardiovascular Cardiovascular exam: Present regular rate and normal rhythm; Absent systolic murmur Extremities Exam Extremities exam: Present full ROM Neurological Exam Neurological exam: Present alert and oriented X3 Psychiatric Psychiatric exam: Present normal affect and normal mood Skin Skin exam: Present warm, dry and intact Medical Decision Making Medical Records Screening: Per USPSTF and CDC recommendations, given the prevalence of disease in our region, it is our hospital?s policy to screen for HIV and viral Hepatitis for all patients aged 18 and over and those with ongoing risk factors. Abhijeet Inquiry Pt receiving controlled substance: No Vital Signs: 01/24/25 11:16 Temperature 98.6 F Temperature Source Oral Pulse Rate [Apical] 85 Respiratory Rate 17 Blood Pressure [Left Arm] 122/83 Blood Pressure Mean [Left Arm] 96 Blood Pressure Source [Left Arm] Automatic Cuff Blood Pressure Position [Left Arm] Sitting 02 Sat by Pulse Oximetry 99 Oxygen Delivery Method Room Air Lab Data Lab Results 01/24/25 11:15: SARS-CoV-2 (PCR) Not detected, Influenza A Untype (PCR) Not detected, Influenza Type B (PCR) Not detected Orders (Tests/Meds): ORDERS Category Date Time Status Rapid PCR Covid and Flu A/B Stat Lab 01/24/25 11:15 Completed Medical Decision Narrative: In summary patient is a 19-year-old female who presents the emergency department for evaluation of congestion and fever. Patient is hemodynamically stable upon arrival, afebrile. Nasal congestion noted on exam. Differential diagnosis includes COVID, flu, allergic rhinitis, viral upper respiratory infection. Initial workup will be conducted with COVID, flu swab. COVID and flu testing are negative. Upon repeat evaluation patient is resting comfortably. Given this patient is appropriate for discharge home at this time with instructions for supportive care and follow-up with her PCP/OB. Critical Care Critical Care Time Critical Care Time: No
[2025-01-24 12:48] VITALS: BP 106/71; PULSE 93; RESP 16; TEMP 36.9; O2SAT 100
== END 2025-01-24 12:48 | disposition home or self-care (01) ==
PROVIDERS: Emergency Provider Student in an Organized Health Care Education/Training Program; PCP Nurse Practitioner
DX: O26.892 Other specified pregnancy related conditions, second trimester (principal); R50.9 Fever, unspecified; R09.81 Nasal congestion; J06.9 Acute upper respiratory infection, unspecified; Z3A.22 22 weeks gestation of pregnancy
CPT/HCPCS: 87636; 99283; 99284

== ENCOUNTER 2025-01-30 14:01 | Outpatient (CLI) | payer OTHER, SELFPAY ==
[2025-01-30 20:11] LABS: Coronavirus 19, PCR Not Detected (NotDetected); Influenza A, PCR Not Detected (NotDetected); Influenza B, PCR Not Detected (NotDetected)
--- OUTSIDE RECORDS SUMMARY | 2025-01-31 10:50 | XMS_ITS | Clinical Summary ---
Author Organization Healthcare Address [address] [place] [address] Care Team Providers Care Stock Clipper Name Role Phone Lurcetia Lang APRN Primary Care Provider +1- [phone] Family History Medical History Relation Name Comments [...] SDOH Screenings 2022 [facility]-Adult SDOH Screenings 2022 [id number] Vaccine ( - season) 2025 [facility]-Influenza Vaccine (#1) 2025 05/06/2014 [facility]-DTaP,Tdap,and Td [...] to complete this topic Insurance NICHOLAS HARTLEY [id number] [employer] [place] Care Teams Stock Clipper Relationship Specialty Start Date End Date Lucretia Lang APRN [address] [place] [address] N[place] H[place]go [address] PCP - General 10/06/20
== END 2025-01-30 23:59 | disposition home or self-care (01) ==
LOC: LAB.DROPOF 01-31 10:48
PROVIDERS: PCP Student in an Organized Health Care Education/Training Program; Visit Provider Student in an Organized Health Care Education/Training Program
DX: J06.9 Acute upper respiratory infection, unspecified (principal)
CPT/HCPCS: 87631

== ENCOUNTER 2025-03-02 12:22 | Outpatient (CLI) | payer OTHER, SELFPAY ==
[2025-03-02 12:46] LABS: Hematocrit 33.2 % (37.0-47.0); Hemoglobin 11.0 g/dL (12.2-16.2); Immature Granulocytes % 1.7 %; Mean Corpuscular HGB Conc 33.1 g/dL (31.8-35.4); Mean Corpuscular Hemoglobin 28.2 pg (27.0-31.2); Mean Corpuscular Volume 85.1 fl (81-99); Nucleated Red Blood Cells % 0 %; Platelet Count 202 K/mm3 (142-424); Red Blood Count 3.90 M/mm3 (4.20-5.40); Red Cell Distribution Width-SD 41.3 fL; White Blood Count 9.3 K/mm3 (4.5-13.0)
[2025-03-02] MEDS: RHO(D) IMMUNE GLOBULIN 1,500 UNIT (300MCG) SYRINGE 300 MCG IM (14:35)
[2025-03-02 14:40] VITALS: BP 145/78; PULSE 100; RESP 18; TEMP 36.8; O2SAT 99
[2025-03-02 15:06] LABS: Glucose 1 Hour 174 mg/dL (74-100)
[2025-03-03 10:29] LABS: RPR W/RFX Titers Nonreactive (Nonreactive)
== END 2025-03-02 23:59 | disposition home or self-care (01) ==
LOC: INF 12:24
PROVIDERS: PCP Nurse Practitioner; Visit Provider Nurse Practitioner Obstetrics & Gynecology
DX: Z34.82 Encounter for supervision of other normal pregnancy, second trimester (principal); Z3A.19 19 weeks gestation of pregnancy
CPT/HCPCS: 36415; 82947; 85025; 86592; 96372; J2790

== ENCOUNTER 2025-03-30 19:34 | Outpatient (CLI) | payer OTHER, SELFPAY ==
--- OUTSIDE RECORDS SUMMARY | 2025-03-30 19:37 | XMS_ITS | Clinical Summary ---
Author Organization Healthcare Address [address] [place] [address] Care Team Providers Care Case Making Machine Operator Name Role Phone Lucretia Lang APRN Primary Care Provider +1- [phone] Family History Medical History Relation Name Comments [...] SDOH Screenings 2022 [facility]-Adult SDOH Screenings 2022 [id number] Vaccine ( - season) 2025 [facility]-Influenza Vaccine [...] to complete this topic Insurance NICHOLAS HARTLEY [id number] [employer] [place] Care Teams Case Making Machine Operator Relationship Specialty Start Date End Date Lucretia Lang APRN [address] [place] [address] [place] [address] PCP - General 10/06/20
[2025-03-30] MEDS: ONDANSETRON 4MG/2ML VIAL 4 MG IV ×2 (20:20→20:44)
[2025-03-30] MEDS: ACETAMINOPHEN 500MG TAB 1000 MG PO (20:20)
[2025-03-30 20:22] VITALS: BP 128/58; PULSE 88; RESP 20; TEMP 36.9; O2SAT 98; BMI 39.3
[2025-03-30] MEDS: DEXTROSE 5%-LACTATED RINGERS 1,000 ML 999 ML IV ×2 (20:30→22:19)
[2025-03-30 21:15] LABS: Microscopic, Urine URINE MICROSCOPIC (MICROSCOPIC)
[2025-03-30 21:17] LABS: Bilirubin,Urine Negative (Negative); Color,Urine YELLOW (Yellow); Glucose,Urine (UA) Negative (Negative); Ketones,Urine 3+ (Negative); Leukocyte Esterase,Urine Negative (Negative); PH,Urine 7.0 (5.0-8.5); Protein,Urine Negative (Negative); Specific Gravity, Urine 1.020 (1.005-1.030); Urobilinogen,Urine 0.2 EU/dl (0.2)
[2025-03-30 21:34] LABS: Amorphous Sediment,Urine 2+ /lpf
== END 2025-03-30 22:25 | disposition home or self-care (01) ==
LOC: OBOUT 19:35 → OB 19:36
PROVIDERS: PCP Nurse Practitioner; Visit Provider Nurse Practitioner Obstetrics & Gynecology
DX: O99.891 Other specified diseases and conditions complicating pregnancy (principal); M54.9 Dorsalgia, unspecified; Z3A.32 32 weeks gestation of pregnancy
CPT/HCPCS: 81001; 99213; J2405; J7121

== ENCOUNTER 2025-03-31 09:33 | Outpatient (CLI) | payer OTHER, SELFPAY ==
--- OUTSIDE RECORDS SUMMARY | 2025-03-31 09:39 | XMS_ITS | Clinical Summary ---
Author Organization Healthcare Address [address] [place] [address] Care Team Providers Care Assistant Project Engineer Name Role Phone Lucretia Lang APRN Primary Care Provider +1- [phone] Family History Medical History Relation Name Comments [...] SDOH Screenings 2022 [facility]-Adult SDOH Screenings 2022 [id number] Vaccine ( - season) 2025 [facility]-Influenza Vaccine [...] to complete this topic Insurance NICHOLAS HARTLEY [id number] [employer] [place] Care Teams Assistant Project Engineer Relationship Specialty Start Date End Date Lucretia Lang APRN [address] [place] [address] [place] [address] PCP - General 10/06/20
[2025-03-31 10:42] LABS: Glucose,Fasting 92 mg/dl (74-100)
[2025-03-31 11:26] LABS: Glucose 1 Hour 172 mg/dL (74-100)
[2025-03-31 12:12] LABS: Glucose 2 Hour 126 mg/dL (74-100)
[2025-03-31 14:03] LABS: Glucose 3 Hour 134 mg/dL (74-100)
== END 2025-03-31 23:59 | disposition home or self-care (01) ==
LOC: LAB 09:35
PROVIDERS: PCP Nurse Practitioner; Visit Provider Nurse Practitioner Obstetrics & Gynecology
DX: O99.810 Abnormal glucose complicating pregnancy (principal); Z3A.00 Weeks of gestation of pregnancy not specified
CPT/HCPCS: 36415; 82951

== ENCOUNTER 2025-04-01 11:20 | Outpatient (CLI) | payer OTHER, SELFPAY ==
--- OUTSIDE RECORDS SUMMARY | 2025-04-01 11:23 | XMS_ITS | Clinical Summary ---
Author Organization Healthcare Address [address] [place] [address] Care Team Providers Care Cut Out Operator Name Role Phone Lucretia Lang APRN Primary Care Provider +1- [phone] Family History Medical History Relation Name Comments [...] SDOH Screenings 2022 [facility]-Adult SDOH Screenings 2022 [id number] Vaccine ( - season) 2025 [facility]-Influenza Vaccine [...] to complete this topic Insurance NICHOLAS HARTLEY [id number] [employer] [place] Care Teams Cut Out Operator Relationship Specialty Start Date End Date Lucretia Lang APRN [address] [place] [address] [place] H[place] [address] PCP - General 10/06/20
[2025-04-01 11:54] VITALS: BMI 38.9
[2025-04-01 12:00] LABS: Microscopic, Urine URINE MICROSCOPIC (MICROSCOPIC)
[2025-04-01 12:03] LABS: Bilirubin,Urine Negative (Negative); Color,Urine YELLOW (Yellow); Glucose,Urine (UA) Negative (Negative); Ketones,Urine Negative (Negative); Leukocyte Esterase,Urine 1+ (Negative); PH,Urine 6.0 (5.0-8.5); Protein,Urine Negative (Negative); Specific Gravity, Urine 1.010 (1.005-1.030); Urobilinogen,Urine 0.2 EU/dl (0.2)
[2025-04-01 12:04] VITALS: BP 118/70; PULSE 87; RESP 19; TEMP 36.9; O2SAT 100; BMI 38.7
[2025-04-01 12:22] LABS: Bacteria,Urine 2+ /lpf
--- NOTE | 2025-04-01 12:30 | US_ITS ---
PROCEDURE: US OB BPP W/FET-MAT S/D CLINICAL INDICATION: abdominal trauma COMPARISON: US US OB <= 14 WEEKS FETUS from 10/13/2024 US US OB /MATERNAL DETAIL from 01/04/2025 FINDINGS: Transabdominal sonographic images of the uterus were obtained. From her established due date she is 32weeks 3days. The following parameters are obtained: Viable Fetus in the breech presentation with an anterior placenta grade 2. Average ultrasound age is 34weeks 4days Estimated weight 2,300g The cervix measures 3.66 cm in length. Measurements: heart Rate = 130bpm Average ultrasound age 34 weeks 4 days Estimated weight 2300 grams, 5 lb 1 oz BPD = 34weeks 6days, 95 percentile HC = 36weeks 4days, 97 percentile AC = 34weeks 0 days, 88 percentile FL = 32weeks 5days, 42 percentile HC/AC is 1.08 FL/BPD is 0.73 FL/AC is 0.21 84 percentile Amniotic fluid index: 19.73cm, MVP 7.24 cm Qualitative AFV:2 Breathing movements: 2 Gross Body Movements: 2 Tone: 2 Biophysical profile score: 8 Doppler evaluation of the umbilical artery: SD ratio: 3.03-3.31 Resistive index: 0.7 No obvious anomalies evident.Kidneys, profile, stomach, bladder, four-chamber heart, three-vessel cord appear normal. IMPRESSION: 1. Viable fetus in the breech presentation with an anterior placenta grade 1-2. 2. The fluid is within normal limits with an amniotic fluid index 19.73 cm, MVP 7.24 cm. 3. There has been good interval growth with the fetus currently 84th percentile. 4. Biophysical profile is 8/8 with good breathing movement and movement seen. 5. SD ratio normal 3.03-3.31. 6. No evidence of placental abruption. Dictated by: Elian Mills MD 04/01/2025 14:49 Elian Mills MD in [place] 04/01/2025 14:49
[2025-04-01] MEDS: LACTATED RINGERS 1000ML 1,000 ML 999 ML IV (12:57)
[2025-04-01 13:02] LABS: Hematocrit 30.9 % (37.0-47.0); Hemoglobin 9.9 g/dL (12.2-16.2); Immature Granulocytes % 1.0 %; Mean Corpuscular HGB Conc 32.0 g/dL (31.8-35.4); Mean Corpuscular Hemoglobin 27.0 pg (27.0-31.2); Mean Corpuscular Volume 84.2 fl (81-99); Nucleated Red Blood Cells % 0 %; Platelet Count 183 K/mm3 (142-424); Red Blood Count 3.67 M/mm3 (4.20-5.40); Red Cell Distribution Width-SD 41.0 fL; White Blood Count 7.8 K/mm3 (4.5-13.0)
[2025-04-01 13:16] LABS: Alanine Aminotransferase 11 U/L (12-78); Albumin Level 3.7 g/dl (3.5-5.0); Albumin/Globulin Ratio 1.1 (1.1-1.8); Alkaline Phosphatase 94 U/L (38-126); Anion Gap 7.5 mEq/L (5-15); Aspartate Amino Transferase 22 U/L (14-36); Bilirubin,Total 0.4 mg/dl (0.2-1.3); Blood Urea Nitrogen 6 mg/dl (7-17); Calcium 9.2 mg/dl (8.4-10.2); Carbon Dioxide 23 mmol/L (22.0-30.0); Chloride 105 mmol/L (98-107); Creatinine Clearance Estimated 258 mL/min (50-200); Creatinine,Serum 0.60 mg/dl (0.52-1.04); Estimated Glomerular Filt Rate 127 ml/min (>60); GFR (African American) 154 ML/MIN (>60); Globulin 3.5 g/dL (1.3-3.2); Glucose 102 mg/dl (74-100); Potassium 3.5 mmoL/L (3.5-5.1); Sodium 132 mmol/L (136-145); Total Protein,Serum 7.2 g/dl (6.3-8.2)
[2025-04-01] MEDS: ACETAMINOPHEN 500MG TAB 1000 MG PO (13:17)
[2025-04-01 14:00] LABS: Fetal Fibronectin (Rapid) Negative (Negative)
== END 2025-04-01 14:27 | disposition home or self-care (01) ==
LOC: OBOUT 11:22 → OB 11:22
PROVIDERS: PCP Nurse Practitioner; Visit Provider Obstetrics & Gynecology
DX: O32.1XX0 Maternal care for breech presentation, not applicable or unspecified (principal); O47.03 False labor before 37 completed weeks of gestation, third trimester; S39.91XA Unspecified injury of abdomen, initial encounter; Z3A.32 32 weeks gestation of pregnancy; W22.8XXA Striking against or struck by other objects, initial encounter; Y99.0 Civilian activity done for income or pay
CPT/HCPCS: 76811; 76819; 76820; 80053; 81001; 82731; 85025; 85460; 86850; 86870; 87086; 99214; J7120

== ENCOUNTER 2025-04-20 12:42 | Outpatient (CLI) | payer OTHER, SELFPAY ==
--- OUTSIDE RECORDS SUMMARY | 2025-04-20 12:47 | XMS_ITS | Clinical Summary ---
Author Organization Healthcare Address [address] [place] [address] Care Team Providers Care Ophthalmic Tech Name Role Phone Lucretia Lang APRN Primary Care Provider +1- [phone] Family History Medical History Relation Name Comments [...] SDOH Screenings 2022 [facility]-Adult SDOH Screenings 2022 [id number] Vaccine ( - season) 2025 [facility]-Influenza Vaccine [...] to complete this topic Insurance NICHOLAS HARTLEY [id number] [employer] [place] Care Teams Ophthalmic Tech Relationship Specialty Start Date End Date Lucretia Lang APRN [address] [place] [address] [place] Hidal[place] [address] PCP - General 10/06/20
[2025-04-20 12:52] VITALS: BMI 39.4
[2025-04-20 13:15] VITALS: BP 110/77; PULSE 104; RESP 19; TEMP 37.2; O2SAT 99; BMI 39.4
[2025-04-20 13:15] LABS: Color,Urine YELLOW (Yellow); Glucose,Urine (UA) Negative (Negative); Ketones,Urine TRACE (Negative); Leukocyte Esterase,Urine 1+ (Negative); Microscopic, Urine URINE MICROSCOPIC (MICROSCOPIC); PH,Urine 5.5 (5.0-8.5); Protein,Urine 1+ (Negative); Specific Gravity, Urine >= 1.030 (1.005-1.030); Urobilinogen,Urine 0.2 EU/dl (0.2)
[2025-04-20 13:20] LABS: Bilirubin,Urine 1+ (Negative)
[2025-04-20 13:35] LABS: Bacteria,Urine 4+ /lpf; Squamous Epithelial Cell,Urine 20-50 #/hpf (0-5)
--- NOTE | 2025-04-20 14:09 | US_ITS ---
PROCEDURE: US OB BIOPHYSICAL PROFILE CLINICAL INDICATION: Decreased movement COMPARISON: US US OB TRANSVAGINAL from 09/20/2024 US US OB <= 14 WEEKS FETUS from 10/13/2024 US US OB /MATERNAL DETAIL from 01/04/2025 US US OB BPP W/FET-MAT S/D from 04/01/2025 FINDINGS: Transabdominal sonographic images of the uterus were obtained. From her established due date she is 35weeks 1day. The following parameters are obtained: Viable Fetus in the cephalic presentation with an anterior placenta grade 2. The cervix measures 4.06 cm in length. Measurements: heart Rate = 135bpm Amniotic fluid index: 18.18cm, MVP 6.99 cm Qualitative AFV:2 Breathing movements: 2 Gross Body Movements: 2 Tone: 2 Biophysical profile score: 8 No obvious anomalies evident.Kidneys, stomach, bladder, four-chamber heart, three-vessel cord appear normal. IMPRESSION: 1. Viable fetus in the cephalic presentation with an anterior placenta grade 2. 2. The fluid is within normal limits with an amniotic fluid index 18.18 cm, MVP 6.99 cm. 3. Biophysical profile is 8/8 with good breathing movement and movement seen. 4. Limited anatomical scan appears normal. Dictated by: Elian Mills MD 04/20/2025 16:25 Elian Mills MD in [place] 04/20/2025 16:25
[2025-04-20] MEDS: ACETAMINOPHEN 500MG TAB 1000 MG PO (14:13)
[2025-04-20] MEDS: LACTATED RINGERS 1000ML 1,000 ML 999 ML IV (14:15)
== END 2025-04-20 15:47 | disposition home or self-care (01) ==
LOC: OBOUT 12:44 → OB 12:46
PROVIDERS: PCP Nurse Practitioner; Visit Provider Nurse Practitioner Obstetrics & Gynecology
DX: O36.8130 Decreased fetal movements, third trimester, not applicable or unspecified (principal); O47.03 False labor before 37 completed weeks of gestation, third trimester; O99.891 Other specified diseases and conditions complicating pregnancy; N89.8 Other specified noninflammatory disorders of vagina; Z3A.35 35 weeks gestation of pregnancy
CPT/HCPCS: 76819; 81001; 87086; 99213; J7120

== ENCOUNTER 2025-04-28 10:34 | Outpatient (CLI) | payer OTHER, SELFPAY ==
--- NOTE | 2025-04-28 10:45 | US_ITS ---
PROCEDURE: US OB BIOPHYSICAL PROFILE CLINICAL INDICATION: schedule in 2wks for growth COMPARISON: US US OB TRANSVAGINAL from 09/20/2024 US US OB <= 14 WEEKS FETUS from 10/13/2024 US US OB /MATERNAL DETAIL from 01/04/2025 US US OB BPP W/FET-MAT S/D from 04/01/2025 US OB BIOPHYSICAL PROFILE from 04/20/2025 FINDINGS: Transabdominal sonographic images of the uterus were obtained. From her established due date she is 36weeks 2days. The following parameters are obtained: Viable Fetus in the cephalic presentation with an anterior placenta grade 2. Average ultrasound age is 38weeks 3days Estimated weight 3,507g, 7 lb 12 oz The cervix measures 3.26 cm in length Measurements: heart Rate = 152bpm BPD = 38weeks 5days >98 percentile HC = 38weeks 6days, 81 percentile AC = 39weeks 1day, >98 percentile FL = 36weeks 5days, 57 percentile HC/AC is 0.96 FL/BPD is 0.75 FL/AC is 0.2 96 percentile Amniotic fluid index: 16.71cm, MVP 6.45 cm Qualitative AFV:2 Breathing movements: 2 Gross Body Movements: 2 Tone: 2 Biophysical profile score: 8 No obvious anomalies evident.Kidneys, stomach, bladder, profile, four-chamber heart, three-vessel cord appear normal. IMPRESSION: 1. Viable fetus in the cephalic presentation with an anterior placenta grade 2. 2. The fluid is within normal limits with an amniotic fluid index 16.71 cm, MVP 6.45 cm. 3. Biophysical profile is 8/8 with good breathing movement and movement seen. 4. There has been accelerated growth with the abdominal circumference 3 weeks ahead. 5. Limited anatomical scan appears normal. Dictated by: Elian Mills MD 04/28/2025 12:04 Elian Mills MD in [place] 04/28/2025 12:04
--- OUTSIDE RECORDS SUMMARY | 2025-04-28 11:00 | XMS_ITS | Clinical Summary ---
Author Organization Healthcare Address [address] [place] [address] Care Team Providers Care Hebrew Professor Name Role Phone Lucretia Lang APRN Primary Care Provider +1- [phone] Family History Medical History Relation Name Comments [...] SDOH Screenings 2022 [facility]-Adult SDOH Screenings 2022 [id number] Vaccine ( - season) 2025 [facility]-Influenza Vaccine [...] to complete this topic Insurance NICHOLAS HARTLEY [id number] [employer] [place] Care Teams Hebrew Professor Relationship Specialty Start Date End Date Lucretia Lang APRN [address] [place] [address] [place] [address] PCP - General 10/06/20
== END 2025-04-28 23:59 | disposition home or self-care (01) ==
LOC: RAD 10:35
PROVIDERS: PCP Nurse Practitioner; Visit Provider Nurse Practitioner Obstetrics & Gynecology
DX: O36.63X0 Maternal care for excessive fetal growth, third trimester, not applicable or unspecified (principal); Z3A.36 36 weeks gestation of pregnancy
CPT/HCPCS: 76816; 76819; 86403

== ENCOUNTER 2025-05-08 18:45 | Observation (INO) | payer OTHER, SELFPAY ==
--- OUTSIDE RECORDS SUMMARY | 2025-05-02 09:24 | XMS_ITS | Continuity of Care Document ---
Author Organization [facility] Address [address] [place] [address] Phone Care Team Providers Care Retort Unloader Name Role Phone Martir Rey Unavailable Allergies, Adverse Reactions, Alerts Substance Reaction Status Criticality No Known Allergies Active No Inform ation Procedures Procedure Date BEHAVIORAL ASSESSMENT Advance Directives Directive Yes / No Effective Date File Name No Information Encounters Encounter Description Practice Location Reason(s) For Visit Diagnoses Date Provider [facility], [address] [place], [address], [place] tel:[phone] DEAN-O-CY NTHIANA Major Depressive Disorder, Single episode, ModerateSocial Anxiety Disorder Trip Mcmahan. . Family History Family Member Type Diagnosis Age At Onset Mother Problem NULL Mother Problem Depression Mother Problem Anxiety disorder Payers Payer name Insurance type Covered alliance party ID Authoriza tion(s) [facility] Medicaid [employer] [facility] Health CI [id number] Social History Type Description Quantity Date Captured Comments Alcohol Use Details No Caffeine Use Details Unknown Tobacco Use Status No Information Smoking Status No Information Sex Female Sexual Orientation Choose not to disclose Gender Identity Female Chief Complaint And Reason For Visit No Information Plan Of Treatment Date Type Action Status Appointment Nash Hartley BOOKED Appointment Nash Hartley BOOKED History Of Present Illness Encounter Date Complaint History Of Prese nt Illness No Information Instructions Date Instruction Additional Infor mation No Information Assessments Type Assessment Date assessment Major Depressive Disorder, Singl e episode, Moderate assessment Social Anxiety Disorder 025
--- OUTSIDE RECORDS SUMMARY | 2025-05-08 13:39 | XMS_ITS | Clinical Summary ---
Author Organization Healthcare Address [address] [place] [address] Care Team Providers Care Spray Ii Painter Name Role Phone Lucretia Lang APRN Primary Care Provider +1- [phone] Family History Medical History Relation Name Comments [...] SDOH Screenings 2022 [facility]-Adult SDOH Screenings 2022 [id number] Vaccine ( - season) 2025 [facility]-Influenza Vaccine [...] to complete this topic Insurance NICHOLAS HARTLEY [id number] [employer] [place] Care Teams Spray Ii Painter Relationship Specialty Start Date End Date Lucretia Lang APRN [address] [place] [address] N[place] H[place] [address] PCP - General 10/06/20
[2025-05-08 13:48] VITALS: BMI 41.6
[2025-05-08 14:05] VITALS: BP 134/77; PULSE 117; RESP 19; TEMP 36.8; O2SAT 97; BMI 41.6
[2025-05-08] MEDS: LACTATED RINGERS 1000ML 1,000 ML 999 ML IV (14:05)
[2025-05-08 14:10] LABS: POC Glucose,Bedside 85 gm/dL (70-110)
[2025-05-08 14:15] LABS: Microscopic, Urine URINE MICROSCOPIC (MICROSCOPIC)
[2025-05-08 14:18] LABS: Bilirubin,Urine Negative (Negative); Color,Urine YELLOW (Yellow); Glucose,Urine (UA) Negative (Negative); Ketones,Urine Negative (Negative); Leukocyte Esterase,Urine 1+ (Negative); PH,Urine 7.0 (5.0-8.5); Protein,Urine Negative (Negative); Specific Gravity, Urine 1.020 (1.005-1.030); Urobilinogen,Urine 0.2 EU/dl (0.2)
[2025-05-08 14:36] LABS: Bacteria,Urine Trace /lpf
--- NOTE | 2025-05-08 14:40 | US_ITS ---
PROCEDURE INFORMATION: Exam: US Biophysical Profile Without Non-Stress Test Exam date and time: 05/08/2025 3:04 PM Age: 19 years old Clinical indication: Other: Dec movement; ; Additional info: Decreased movement TECHNIQUE: Imaging protocol: US biophysical profile without non-stress testing. COMPARISON: US OB BIOPHYSICAL PROFILE 04/28/2025 10:42 AM FINDINGS: Gestation: Normal profile heart rate: 140 bpm presentation and position: Cephalic presentation Amniotic fluid index: CHYNA is 13.23 cm. BIOPHYSICAL PROFILE: breathing (BPP): 2 /2 gross body movement (BPP): 2 /2 tone (BPP): 2 /2 Amniotic fluid (BPP): 2 /2 Biophysical profile score (BPP): 8 /8 kidneys: Normal kidneys Umbilical cord vessel number: Normal three-vessel cord Other findings: Anterior placenta grade 2 IMPRESSION: Biophysical profile score is 8 out of 8.
[2025-05-08] MEDS: MVI, ADULT NO.1 WITH VIT K 10 ML, THIAMINE HCL 100 MG, MAGNESIUM SULFATE 2 GM in LACTAT... 253.75 ML IV (15:01)
[2025-05-08 15:22] LABS: Hematocrit 27.9 % (37.0-47.0); Hemoglobin 8.6 g/dL (12.2-16.2); Immature Granulocytes % 1.0 %; Mean Corpuscular HGB Conc 30.8 g/dL (31.8-35.4); Mean Corpuscular Hemoglobin 24.6 pg (27.0-31.2); Mean Corpuscular Volume 79.7 fl (81-99); Nucleated Red Blood Cells % 0 %; Platelet Count 150 K/mm3 (142-424); Red Blood Count 3.50 M/mm3 (4.20-5.40); Red Cell Distribution Width-SD 40.5 fL; White Blood Count 8.1 K/mm3 (4.5-13.0)
[2025-05-08 15:26] LABS: Albumin Level 3.2 g/dl (3.5-5.0); Chloride 108 mmol/L (98-107); Potassium 4.0 mmoL/L (3.5-5.1); Sodium 131 mmol/L (136-145)
[2025-05-08 15:29] LABS: Alanine Aminotransferase 9 U/L (12-78); Albumin/Globulin Ratio 1.1 (1.1-1.8); Alkaline Phosphatase 116 U/L (38-126); Anion Gap 5.0 mEq/L (5-15); Aspartate Amino Transferase 20 U/L (14-36); Bilirubin,Total 0.5 mg/dl (0.2-1.3); Blood Urea Nitrogen 12 mg/dl (7-17); Calcium 8.8 mg/dl (8.4-10.2); Carbon Dioxide 22 mmol/L (22.0-30.0); Creatinine Clearance Estimated 120 mL/min (50-200); Creatinine,Serum 0.70 mg/dl (0.52-1.04); Estimated Glomerular Filt Rate 107 ml/min (>60); GFR (African American) 129 ML/MIN (>60); Globulin 2.9 g/dL (1.3-3.2); Glucose 80 mg/dl (74-100); Total Protein,Serum 6.1 g/dl (6.3-8.2)
[2025-05-08 18:26] VITALS: BP 128/75; PULSE 120; RESP 20; TEMP 37.6; O2SAT 99
[2025-05-08 19:25] LABS: Adenovirus,PCR Not Detected (NotDetected); Chlamydophila Pneumoniae, PCR Not Detected (NotDetected); Coronavirus 19, PCR Not Detected (NotDetected); Coronovirus HKU1,PCR Not Detected (NotDetected); Influenza A, PCR Not Detected (NotDetected); Influenza AH1, 2009 Not Detected (NotDetected); Influenza AH1, PCR Not Detected (NotDetected); Influenza AH3,PCR Not Detected (NotDetected); Influenza B, PCR Not Detected (NotDetected); Mycoplasma Pneumoniae, PCR Not Detected (NotDetected); Parainfluenza 1, PCR Not Detected (NotDetected); Parainfluenza 2, PCR Not Detected (NotDetected); Parainfluenza 3, PCR Not Detected (NotDetected); Parainfluenza 4, PCR Not Detected (NotDetected)
[2025-05-08] MEDS: LACTATED RINGERS 1000ML 1,000 ML 125 ML IV (20:01)
[2025-05-08 20:19] VITALS: BP 136/78; PULSE 121; RESP 18; TEMP 36.7; O2SAT 99
[2025-05-08] MEDS: ACETAMINOPHEN 1,000 MG/100 ML ML 400 MG IV (21:18)
[2025-05-08 23:52] VITALS: BP 133/75; PULSE 110; RESP 18; TEMP 36.7; O2SAT 98
[2025-05-08] MEDS: ONDANSETRON 4MG/2ML VIAL 4 MG IV (23:54)
[2025-05-09 03:49] VITALS: BP 125/75; PULSE 102; RESP 16; TEMP 37.1; O2SAT 97
--- NOTE | 2025-05-09 09:14 | P.HP_ITS ---
History of Present Illness *Admission Date: 05/08/25 *Reason for visit:: Decreased movement, large for gestational age , nausea vomiting *History of present illness: She is a 19-year-old 1 para 0 at 37 and 6 weeks gestational age. She complains of nausea vomiting and diarrhea. She also complains of decreased movement. As a result of that she was admitted for observation. [facility] Disclaimer: The information contained in this section may have been updated after the patient was seen, as this information can be updated by other users. Medical History LGA (large for gestational age) fetus affecting mother, antepartum LGA (large for gestational age) fetus Encounter for related examination in third trimester Abnormal glucose tolerance in Encounter for supervision of other normal , second trimester Asthma Seasonal allergies Surgical History Hx of foot surgery History of adenoidectomy History of tonsillectomy Family History Family history of [place] (myocardial infarction) Social History Smoking Status: Never smoker second hand exposure: No alcohol intake: never substance use type: denies use current occupational status: unemployed Travel in the last 8 weeks?: None household members: family housing: house number of children: 0 caffeine: Yes Have you lived/traveled outside US in past 30 days?: No Contact w/someone who lives/traveled outside US past 30 days?: No Exposure to someone with infectious disease in past 14 days?: No Do you have a fever (greater than 100.4 F or 38 C)?: No Have you tested positive for COVID-19?: No Exposed to someone with COVID-19 in past 14 days?: No Do you have a sore throat?: No Do you have a cough?: No Do you have any weakness?: No Do you have any diarrhea?: No Are you experiencing any unusual bleeding?: No Do you have any muscle aches/pain?: No Do you have any abdominal pain?: No Are you experiencing loss of taste or smell?: No Other Medical History Have you received the Flu Vaccine for this season: No Have you received the Pneumonia Vaccine: No Review of Systems Review of Systems Review of systems:: pertinent systems reviewed and negative unless documented below Meds Home Medications and Allergies Home Medications ?Medication ?Instructions ?Recorded ?Confirmed ?Type vits no.130-ferrous fum 1 tab PO ONCE 5 05/08/25 History 27 mg iron-folic acid 800 mcg tablet ( Vitamin) ferrous sulfate 325 mg (65 mg 325 mg PO DAILY 03/31/25 05/08/25 History iron) tablet New Prescriptions to Start Prescriptions: Allergies Allergy/AdvReac Type Severity Reaction Status Date / Time No Known Allergies Allergy Verified 05/05/25 10:37 Exam Data for Last 24 hours Vital signs and Labs for Last 24 Hours: Temp Pulse Resp BP Pulse Ox O2 Del Method 98.7 F 102 H 16 125/75 97 Room Air 05/09/25 03:49 05/09/25 03:49 05/09/25 03:49 05/09/25 03:49 05/09/25 03:49 05/09/25 03:49 Laboratory Results - last 24 hr 05/08/25 13:44: Urine Color Yellow, Urine Appearance Clear, Urine pH 7.0, Ur Specific [place] 1.020, Urine Protein Negative, Urine Glucose (UA) Negative, Urine Ketones Negative, Urine Blood Negative, Urine Nitrate Negative, Urine Bilirubin Negative, Urine Urobilinogen 0.2, Ur Leukocyte Esterase 1+ A, Urine RBC None, Urine WBC 5-10, Ur Squamous Epith Cells 5-10, Urine Bacteria Trace 05/08/25 13:58: POC Glucose 85 05/08/25 15:10: WBC 8.1, RBC 3.50 L, Hgb 8.6 L, Hct 27.9 L, MCV 79.7 L, MCH 24.6 L, MCHC 30.8 L, RDW 14.0, Plt Count 150, MPV 12.0 H, Neut % (Auto) 77.5, Lymph % (Auto) 10.7, [place] % (Auto) 10.3 H, Eos % (Auto) 0.4, Baso % (Auto) 0.1, Neut # (Auto) 6.3, Lymph # (Auto) 0.9, [place] # (Auto) 0.8, Eos # (Auto) 0.0, Baso # (Auto) 0.0, Sodium 131 L, Potassium 4.0, Chloride 108 H, Carbon Dioxide 22, Anion Gap 5.0, BUN 12, Creatinine 0.70, Estimated Creat Clear 120, Estimated GFR 107, Est GFR ( Amer) 129, Glucose 80, Calcium 8.8, Total Bilirubin 0.5, AST 20, ALT 9 L, Alkaline Phosphatase 116, Total Protein 6.1 L, Albumin 3.2 L, Globulin 2.9, Albumin/Globulin Ratio 1.1 05/08/25 19:05: Chlamy pneumoniae PCR Not detected, Adenovirus (PCR) Not detected, B. pertussis DNA (PCR) Not detected, Coronavirus OC43 (PCR) Not detected, Coronavirus HKU1 (PCR) Not detected, Coronavirus 229E (PCR) Not detected, SARS-CoV-2 (PCR) Not detected, Coronavirus NL63 (PCR) Not detected, Human Metapneumovir PCR Not detected, Influenza A (H1) PCR Not detected, Influ A (H1N1/09) PCR Not detected, Influenza A (H3) PCR Not detected, Influenza Type A (PCR) Not detected, Influenza Type B (PCR) Not detected, M. pneumoniae (PCR) Not detected, Parainfluenza 1 (PCR) Not detected, Parainfluenza 2 (PCR) Not detected, Parainfluenza 3 (PCR) Not detected, Parainfluenza 4 (PCR) Not detected, RSV (PCR) Not detected, Entero/Rhino (PCR) Not detected I & O for Last 24 hours: Intake & Output 05/06/25 05/07/25 05/08/25 05/09/25 11:59 11:59 11:59 11:59 Intake Total 3115 / 3115 Balance 3115 / 3115 Weight 258 lb Constitutional Constitutional: no acute distress and obese *Routine HEENT Exam Head: Present normocephalic Eye: Present EOMI and PERRL ENT: Present mucous membranes moist *Routine Neck Exam Neck: Present supple; Absent lymphadenopathy *Routine Respiratory Exam Respiratory: Present CTA bilaterally *Routine Cardiovascular Exam Cardiovascular: Present RRR *Routine Abdominal Exam Abdominal: Present soft and normoactive bowel sounds; Absent tenderness *Routine Rectal Exam Rectal:: deferred *Routine Genitalia Exam Genitalia:: deferred *Routine Extremities Exam Extremities: Absent cyanosis, clubbing or edema *Routine Skin Exam Skin: Present warm; Absent rash *Routine Neurological Exam Neurological: Present alert and oriented X3 Assessment and Plan *Assessment and plan (1) LGA (large for gestational age) fetus affecting mother, antepartum: Status: Acute Qualifiers: Fetus number: single or unspecified fetus Qualified Code(s): O36.60X0 - Maternal care for excessive growth, unspecified trimester, not applicable or unspecified Category: Medical Code(s): O36.60X0 - Maternal care for excessive growth, unspecified trimester, not applicable or unspecified (2) Vomiting : Status: Acute Category: Medical Code(s): O21.9 - Vomiting of , unspecified (3) Diarrhea: Status: Acute Qualifiers: Diarrhea type: unspecified type Qualified Code(s): R19.7 - Diarrhea, unspecified Category: Medical Code(s): R19.7 - Diarrhea, unspecified Plan 1. She is admitted for observation with nausea, vomiting and diarrhea. 2. She also complained of decreased movement but the baby seems to be doing well now. Nonstress test is reactive. Ultrasound last night revealed a biophysical of 8 out of 8 with good breathing movement and good movement seen. There is also normal amount of fluid. 3. She has received 1 banana bag and we will give her another 1 today. We will observe her throughout the day and see how she does. 4. She is scheduled for a primary lower segment transverse section next week and we will continue that for now unless other things change. 5. We will likely send her home tomorrow to follow-up closely over the next week.
[2025-05-09] MEDS: MVI, ADULT NO.1 WITH VIT K 10 ML, THIAMINE HCL 100 MG, MAGNESIUM SULFATE 2 GM in LACTAT... 125 ML IV (09:40)
--- NOTE | 2025-05-09 17:15 | EXP.DC.SUM ---
General Admission date:: 05/08/25 Discharge date: 05/09/25 HPI HPI HPI: She is a 19-year-old 1 para 0 at 37 and 6 weeks gestational age. She complains of nausea vomiting and diarrhea. She also complains of decreased movement. As a result of that she was admitted for observation. Hospital Course Hospital Course Hospital Course: She was started on IV fluids and was observed throughout the day. She has received IV vitamin packs. She no longer has any diarrhea, nausea or vomiting. She is eating and drinking and ambulating well. She will be discharged home to follow-up with me in approximately 48 hours time as planned. She will continue with her vitamins and iron. She will continue to drink plenty of fluids. Her condition on discharge is stable and improved. Exam Data for Last 24 hours Vital signs and Labs for Last 24 Hours: Temp Pulse Resp BP Pulse Ox O2 Del Method 98.7 F 102 H 16 125/75 97 Room Air 05/09/25 03:49 05/09/25 03:49 05/09/25 03:49 05/09/25 03:49 05/09/25 03:49 05/09/25 03:49 Laboratory Results - last 24 hr 05/08/25 19:05: Chlamy pneumoniae PCR Not detected, Adenovirus (PCR) Not detected, B. pertussis DNA (PCR) Not detected, Coronavirus OC43 (PCR) Not detected, Coronavirus HKU1 (PCR) Not detected, Coronavirus 229E (PCR) Not detected, SARS-CoV-2 (PCR) Not detected, Coronavirus NL63 (PCR) Not detected, Human Metapneumovir PCR Not detected, Influenza A (H1) PCR Not detected, Influ A (H1N1/09) PCR Not detected, Influenza A (H3) PCR Not detected, Influenza Type A (PCR) Not detected, Influenza Type B (PCR) Not detected, M. pneumoniae (PCR) Not detected, Parainfluenza 1 (PCR) Not detected, Parainfluenza 2 (PCR) Not detected, Parainfluenza 3 (PCR) Not detected, Parainfluenza 4 (PCR) Not detected, RSV (PCR) Not detected, Entero/Rhino (PCR) Not detected I & O for Last 24 hours: Intake & Output 05/07/25 05/08/25 05/09/25 05/10/25 11:59 11:59 11:59 11:59 Intake Total 3115 / 3115 781.25 / 781.25 Balance 5 / 5 781.25 / 781.25 Weight 258 lb Constitutional Constitutional: no acute distress *Routine HEENT Exam Head: Present normocephalic *Routine Neck Exam Neck: Present full ROM *Routine Respiratory Exam Respiratory: Present normal respiratory effort; Absent accessory muscle use Results Data Completed and Pending Labs on day of discharge: Labs from last 24 hours 05/08/25 19:05 Chlamy pneumoniae PCR Not detected Adenovirus (PCR) Not detected B. pertussis DNA (PCR) Not detected Coronavirus OC43 (PCR) Not detected Coronavirus HKU1 (PCR) Not detected Coronavirus 229E (PCR) Not detected SARS-CoV-2 (PCR) Not detected Coronavirus NL63 (PCR) Not detected Human Metapneumovir PCR Not detected Influenza A (H1) PCR Not detected Influ A (H1N1/09) PCR Not detected Influenza A (H3) PCR Not detected Influenza Type A (PCR) Not detected Influenza Type B (PCR) Not detected M. pneumoniae (PCR) Not detected Parainfluenza 1 (PCR) Not detected Parainfluenza 2 (PCR) Not detected Parainfluenza 3 (PCR) Not detected Parainfluenza 4 (PCR) Not detected RSV (PCR) Not detected Entero/Rhino (PCR) Not detected DS: Diagnosis Discharge Diagnosis (1) LGA (large for gestational age) fetus affecting mother, antepartum: Status: Acute Code(s): O36.60X0 - Maternal care for excessive growth, unspecified trimester, not applicable or unspecified Qualifiers: Fetus number: single or unspecified fetus Qualified Code(s): O36.60X0 - Maternal care for excessive growth, unspecified trimester, not applicable or unspecified (2) Vomiting : Status: Acute Code(s): O21.9 - Vomiting of , unspecified (3) Diarrhea: Status: Acute Code(s): R19.7 - Diarrhea, unspecified Qualifiers: Diarrhea type: unspecified type Qualified Code(s): R19.7 - Diarrhea, unspecified Meds Home Medications and Allergies Home Medications ?Medication ?Instructions ?Recorded ?Confirmed ?Type vits no.130-ferrous fum 1 tab PO ONCE 10/06/24 05/08/25 History 27 mg iron-folic acid 800 mcg tablet ( Vitamin) ferrous sulfate 325 mg (65 mg 325 mg PO DAILY 03/31/25 05/08/25 History iron) tablet New Prescriptions to Start Prescriptions: Allergies Allergy/AdvReac Type Severity Reaction Status Date / Time No Known Allergies Allergy Verified 05/05/25 10:37 Discharge Plan Disposition Patient Disposition: Home, Self-Care Follow up Plan Prescriptions/Medication Reconciliation: Continued ferrous sulfate 325 mg (65 mg iron) tablet 325 mg PO DAILY Vitamin 27 mg iron- 800 mcg tablet 1 tab PO ONCE Patient Comments: TAKE 1 TABLET BY MOUTH ONCE A DAY Problem Reconciliation Problems Reviewed?: Yes Patient Discharge Instructions ACTIVITY: Continue current activity DIET: continue same diet Patient Instructions: How to Do Kick Counts, Antepartum Care Print Language: Wolof Providers Primary Care Provider: Vidhya Martínez Provider: Jaymie Wakefield Attending Provider: Jaymie Wakefield
== END 2025-05-09 17:58 | disposition home or self-care (01) ==
LOC: OBOUT 18:46 → OB 18:46
PROVIDERS: Admitting Provider Obstetrics & Gynecology; PCP Nurse Practitioner; Visit Provider Obstetrics & Gynecology
DX: O36.63X0 Maternal care for excessive fetal growth, third trimester, not applicable or unspecified (principal); O21.2 Late vomiting of pregnancy; O26.891 Other specified pregnancy related conditions, first trimester; R19.7 Diarrhea, unspecified; Z3A.37 37 weeks gestation of pregnancy
CPT/HCPCS: 0223U; 36415; 59025; 76819; 80053; 81001; 82962; 85025; 87086; 96360; 96361; 96365; 96366; 96367; 96375; 99214; G0378; J0131; J2405; J3411; J3475; J7120

== ENCOUNTER 2025-05-11 11:20 | Outpatient (CLI) | payer OTHER, SELFPAY ==
[2025-05-11 12:38] LABS: Iron 41 ug/dL (37-170)
[2025-05-11 12:49] LABS: Total Iron Binding Capacity 518 ug/dL (265-497)
--- OUTSIDE RECORDS SUMMARY | 2025-05-11 12:53 | XMS_ITS | Clinical Summary ---
Author Organization Healthcare Address [address] [place] [address] Care Team Providers Care Electrical Contractor Name Role Phone Lucretia Lang APRN Primary Care Provider [phone] Family History Medical History Relation Name Comments [...] SDOH Screenings 2022 [facility]-Adult SDOH Screenings 2022 [id number] Vaccine ( - season) 2025 [facility]-Influenza Vaccine [...] to complete this topic Insurance NICHOL[place] HARTLEY [id number] [employer] [place] Care Teams Electrical Contractor Relationship Specialty Start Date End Date Lucretia Lang APRN [address] [place] [address] [place] H[place]go [id number] PCP - General 10/06/20
[2025-05-11 13:16] LABS: Ferritin 5.20 ng/ml (6.24-137)
== END 2025-05-11 23:59 | disposition home or self-care (01) ==
LOC: LAB 11:21
PROVIDERS: PCP Nurse Practitioner; Visit Provider Nurse Practitioner Obstetrics & Gynecology
DX: O99.019 Anemia complicating pregnancy, unspecified trimester (principal); D50.9 Iron deficiency anemia, unspecified; Z3A.00 Weeks of gestation of pregnancy not specified
CPT/HCPCS: 82728; 83540; 83550

== ENCOUNTER 2025-05-13 11:01 | Outpatient (CLI) | payer OTHER, SELFPAY ==
[2025-05-13 08:44] VITALS: BMI 42.3
--- OUTSIDE RECORDS SUMMARY | 2025-05-13 11:04 | XMS_ITS | Clinical Summary ---
Author Organization Healthcare Address [address] [place] [address] Care Team Providers Care Sluice Tender Name Role Phone Lucretia Lang APRN Primary Care Provider [phone]- [phone] Family History Medical History Relation Name Comments [...] SDOH Screenings 2022 [facility]-Adult SDOH Screenings 2022 [id number] Vaccine ( - season) 2025 [facility]-Influenza Vaccine [...] to complete this topic Insurance NICHOLAS HARTLEY [id number] [employer] [place] Care Teams Sluice Tender Relationship Specialty Start Date End Date Lucretia Lang APRN [address] [place] [address] NICHOL[place] Hidalgo [id number] PCP - General 10/06/20
[2025-05-13 11:44] LABS: Hematocrit 31.8 % (37.0-47.0); Hemoglobin 9.9 g/dL (12.2-16.2); Immature Granulocytes % 0.9 %; Mean Corpuscular HGB Conc 31.1 g/dL (31.8-35.4); Mean Corpuscular Hemoglobin 24.8 pg (27.0-31.2); Mean Corpuscular Volume 79.7 fl (81-99); Nucleated Red Blood Cells % 0 %; Platelet Count 174 K/mm3 (142-424); Red Blood Count 3.99 M/mm3 (4.20-5.40); Red Cell Distribution Width-SD 41.1 fL; White Blood Count 8.0 K/mm3 (4.5-13.0)
[2025-05-13 12:10] LABS: Chloride 107 mmol/L (98-107); Sodium 135 mmol/L (136-145)
[2025-05-13 12:11] LABS: Potassium 4.3 mmoL/L (3.5-5.1)
[2025-05-13 12:13] LABS: Alanine Aminotransferase 14 U/L (12-78); Alkaline Phosphatase 118 U/L (38-126); Aspartate Amino Transferase 34 U/L (14-36); Bilirubin,Total 0.4 mg/dl (0.2-1.3); Blood Urea Nitrogen 13 mg/dl (7-17); Carbon Dioxide 20 mmol/L (22.0-30.0); Creatinine Clearance Estimated 120 mL/min (50-200); Creatinine,Serum 0.70 mg/dl (0.52-1.04); Estimated Glomerular Filt Rate 107 ml/min (>60); GFR (African American) 129 ML/MIN (>60); Total Protein,Serum 6.9 g/dl (6.3-8.2)
[2025-05-13 12:14] LABS: Calcium 9.9 mg/dl (8.4-10.2); Glucose 80 mg/dl (74-100)
[2025-05-13 12:15] LABS: Anion Gap 12.3 mEq/L (5-15)
[2025-05-13 15:41] LABS: Albumin Level 3.7 g/dl (3.5-5.0); Albumin/Globulin Ratio 1.2 (1.1-1.8); Globulin 3.2 g/dL (1.3-3.2)
== END 2025-05-13 23:59 | disposition home or self-care (01) ==
LOC: PREOP 11:01
PROVIDERS: PCP Nurse Practitioner; Visit Provider Obstetrics & Gynecology
DX: O36.60X0 Maternal care for excessive fetal growth, unspecified trimester, not applicable or unspecified; D50.9 Iron deficiency anemia, unspecified; Z3A.00 Weeks of gestation of pregnancy not specified
CPT/HCPCS: 80053; 85025

== ENCOUNTER 2025-05-17 04:56 | Inpatient (IN) | payer OTHER, SELFPAY ==
[2025-05-13 13:45] VITALS: BMI 42.3
[2025-05-17] VITALS (8 sets, daily range): BP systolic 115–124; BP diastolic 60–73; PULSE 85–110; RESP 16–20; TEMP 36.7–36.8; O2SAT 98–100; BMI 42.0
--- OUTSIDE RECORDS SUMMARY | 2025-05-17 04:59 | XMS_ITS | Clinical Summary ---
Author Organization Healthcare Address [address] [place] [address] Care Team Providers Care Banjo Repairer Name Role Phone Lucretia Lang APRN Primary Care Provider [phone]- [phone] Family History Medical History Relation Name Comments [...] SDOH Screenings 2022 [facility]-Adult SDOH Screenings 2022 [id number] Vaccine ( - season) 2025 [facility]-Influenza Vaccine [...] to complete this topic Insurance NICHOLAS HARTLEY [id number] [employer] [place] Care Teams Banjo Repairer Relationship Specialty Start Date End Date Lucretia Lang APRN [address] [place] [address] [place] H[place]go [id number] PCP - General 10/06/20
[2025-05-17 05:47] LABS: Microscopic, Urine URINE MICROSCOPIC (MICROSCOPIC)
[2025-05-17 05:49] LABS: Hematocrit 26.5 % (37.0-47.0); Hemoglobin 8.5 g/dL (12.2-16.2); Immature Granulocytes % 0.9 %; Mean Corpuscular HGB Conc 32.1 g/dL (31.8-35.4); Mean Corpuscular Hemoglobin 24.9 pg (27.0-31.2); Mean Corpuscular Volume 77.7 fl (81-99); Nucleated Red Blood Cells % 0 %; Platelet Count 192 K/mm3 (142-424); Red Blood Count 3.41 M/mm3 (4.20-5.40); Red Cell Distribution Width-SD 40.8 fL; White Blood Count 9.0 K/mm3 (4.5-13.0)
[2025-05-17 05:51] LABS: Bilirubin,Urine Negative (Negative); Glucose,Urine (UA) Negative (Negative); Ketones,Urine Negative (Negative); Leukocyte Esterase,Urine 2+ (Negative); PH,Urine 6.0 (5.0-8.5); Protein,Urine TRACE (Negative); Specific Gravity, Urine >= 1.030 (1.005-1.030); Urobilinogen,Urine 0.2 EU/dl (0.2)
[2025-05-17 05:52] LABS: Color,Urine Dark Yellow (Yellow)
[2025-05-17] MEDS: LACTATED RINGERS 1000ML 1,000 ML 1000 ML IV (06:08)
[2025-05-17] MEDS: CITRIC ACID/SODIUM CITRATE ORAL SOLN 30ML UDC 30 ML PO (06:08)
[2025-05-17 06:12] LABS: Bacteria,Urine 2+ /lpf; Squamous Epithelial Cell,Urine 20-50 #/hpf (0-5); WBC,Urine 50-100 #/hpf (0-3)
--- NOTE | 2025-05-17 07:16 | EXP.ANES.CKL ---
[facility] Disclaimer: The information contained in this section may have been updated after the patient was seen, as this information can be updated by other users. Medical History Upper respiratory infection Low back pain during , antepartum 11 weeks gestation of Acute cystitis during Epistaxis Nausea and vomiting in prior to 22 weeks gestation Abdominal cramping of unknown anatomic location Anxiety Near syncope Respiratory tract infection Urinary tract infection URI (upper respiratory infection) Tiredness Concern about current without diagnosis Gastritis Abdominal pain Stomach upset Acute viral syndrome Sprain of foot, right Headache Viral URI Headache, migraine Syncope Abdominal pain Cerumen impaction Allergic rhinitis Near syncope Viral syndrome Contusion of leg Low back pain Thumb laceration Exposure to COVID-19 virus Pharyngitis Acute bronchitis Headache E coli enteritis Campylobacter enteritis Ankle sprain Bronchitis Strep throat Sinusitis LGA (large for gestational age) fetus affecting mother, antepartum LGA (large for gestational age) fetus Encounter for related examination in third trimester Abnormal glucose tolerance in Encounter for supervision of other normal , second trimester Asthma Seasonal allergies Surgical History Hx of foot surgery History of adenoidectomy History of tonsillectomy Family History Other Family history of [place] (myocardial infarction) Social History Smoking Status: Never smoker second hand exposure: No alcohol intake: never substance use type: denies use current occupational status: unemployed Travel in the last 8 weeks?: None household members: family housing: house number of children: 0 caffeine: Yes Have you lived/traveled outside US in past 30 days?: No Contact w/someone who lives/traveled outside US past 30 days?: No Exposure to someone with infectious disease in past 14 days?: No Do you have a fever (greater than 100.4 F or 38 C)?: No Have you tested positive for COVID-19?: No Exposed to someone with COVID-19 in past 14 days?: No Do you have a sore throat?: No Do you have a cough?: No Do you have any weakness?: No Are you experiencing any nausea/vomitting?: No Do you have any diarrhea?: No Are you experiencing any unusual bleeding?: No Do you have any muscle aches/pain?: No Do you have any abdominal pain?: No Are you experiencing loss of taste or smell?: No [facility] Anesthesia Checklist Patient Identification Patient Identification: Arm Band and Verbal (Name & ) Structural Data Admitted From: Inpatient Planned Operative Procedure/s: Consent for Planned Operative Procedure(s) Verified: Yes Verified Documents: Surgical Consent and History and Physical NPO Status Verified Time NPO: 00:00 Additional verifications Patient : Yes Anesthesia Reactions: No Airway Assessment Dentition: Good Dentition Neurological Assessment Level of Consciousness: Awake, Alert and Appropriate Anesthesia Plan Anesthesia Risk discussed: Yes Anesthesia Plan: Verified ASA Class: II Anesthesia Type: Spinal
[2025-05-17] MEDS: 0.9 % SODIUM CHLORIDE 100 ML IV (07:28)
[2025-05-17] MEDS: CEFAZOLIN 2GM VIAL 2 GM (07:28)
--- NOTE | 2025-05-17 07:33 | EXP.OB.APHP ---
OB - H&P: HPI Antepartum History of Present Illness Chief complaint: Scheduled elective primary History of present illness: Ms Nash Hartley is a 19 yo at 39w0d who presents to [facility] for scheduled elective primary section. complicated by iron deficiency anemia, maternal obesity and LGA baby. Growth ultrasound 04/28/25 demonstrated EFW 96%ile with BPD and AC > 98 %ile. She was found to have a narrow pelvis on exam. She has had good care. History of Present Criteria for establishing EDC:: based on 1st trimester US only care: good care Ultrasounds: normal mid trimester US Obstetrical complications: none Medical complications: none Labs Blood type: A (-) negative Rubella: immune RPR/VDRL: nonreactive GBS status: negative HBsAG: negative PFSH [facility] Disclaimer: The information contained in this section may have been updated after the patient was seen, as this information can be updated by other users. Medical History (Updated 05/17/25 @ 09:28 by Ce Bangura DO) Rh negative status during Maternal obesity affecting , antepartum Upper respiratory infection Low back pain during , antepartum 11 weeks gestation of Acute cystitis during Epistaxis Nausea and vomiting in prior to 22 weeks gestation Abdominal cramping of unknown anatomic location Anxiety Near syncope Respiratory tract infection Urinary tract infection URI (upper respiratory infection) Tiredness Concern about current without diagnosis Gastritis Abdominal pain Stomach upset Acute viral syndrome Sprain of foot, right Headache Viral URI Headache, migraine Syncope Abdominal pain Cerumen impaction Allergic rhinitis Near syncope Viral syndrome Contusion of leg Low back pain Thumb laceration Exposure to COVID-19 virus Pharyngitis Acute bronchitis Headache E coli enteritis Campylobacter enteritis Ankle sprain Bronchitis Strep throat Sinusitis LGA (large for gestational age) fetus affecting mother, antepartum LGA (large for gestational age) fetus Encounter for related examination in third trimester Abnormal glucose tolerance in Encounter for supervision of other normal , second trimester Asthma Seasonal allergies Surgical History Hx of foot surgery History of adenoidectomy History of tonsillectomy Family History Other Family history of [place] (myocardial infarction) Social History Smoking Status: Never smoker second hand exposure: No alcohol intake: never substance use type: denies use current occupational status: unemployed Travel in the last 8 weeks?: None household members: family housing: house number of children: 0 caffeine: Yes Have you lived/traveled outside US in past 30 days?: No Contact w/someone who lives/traveled outside US past 30 days?: No Exposure to someone with infectious disease in past 14 days?: No Do you have a fever (greater than 100.4 F or 38 C)?: No Have you tested positive for COVID-19?: No Exposed to someone with COVID-19 in past 14 days?: No Do you have a sore throat?: No Do you have a cough?: No Do you have any weakness?: No Are you experiencing any nausea/vomitting?: No Do you have any diarrhea?: No Are you experiencing any unusual bleeding?: No Do you have any muscle aches/pain?: No Do you have any abdominal pain?: No Are you experiencing loss of taste or smell?: No Other Medical History Have you received the Flu Vaccine for this season: No Have you received the Pneumonia Vaccine: No Review of Systems Review of Systems Review of systems:: pertinent systems reviewed and negative unless documented below Meds Home Medications and Allergies Home Medications ?Medication ?Instructions ?Recorded ?Confirmed ?Type vits no.130-ferrous fum 1 tab PO DAILY 10/06/24 05/17/25 History 27 mg iron-folic acid 800 mcg tablet ( Vitamin) ferrous sulfate 325 mg (65 mg 325 mg PO DAILY 03/31/25 05/17/25 History iron) tablet New Prescriptions to Start Prescriptions: Allergies Allergy/AdvReac Type Severity Reaction Status Date / Time No Known Allergies Allergy Verified 05/17/25 05:25 OB - H&P: Exam Physical Exam Vital signs: Temp Pulse Resp BP Pulse Ox O2 Del Method 98.3 F 110 H 20 123/73 98 Room Air 05/17/25 06:20 05/17/25 06:20 05/17/25 06:20 05/17/25 06:20 05/17/25 06:20 05/17/25 06:20 Constitutional no acute distress and cooperative Routine HEENT Exam Head: Present normocephalic and atraumatic Eye: Absent conjunctivae pink ENT: Present mucous membranes moist Routine Neck Exam Present full ROM Routine Respiratory Exam Present CTA bilaterally and normal respiratory effort Routine Cardiovascular Exam Present RRR Routine Abdominal Exam Present soft (Gravid); Absent tenderness Routine Rectal Exam Patient deferred: visual exam Routine Exam External: Present normal urethra appearance; Absent erythema, swelling, tenderness or lesions Routine Extremities Exam Present full ROM; Absent edema or calf tenderness Routine Neurological Exam Present alert, moving all extremities and normal speech Routine Psychiatric Exam Present normal affect and cooperative OB - Results Labs Labs: Short CBC 05/17/25 Range/Units 05:27 WBC 9.0 (4.5-13.0) K/mm3 Hgb 8.5 L (12.2-16.2) g/dL Hct 26.5 L (37.0-47.0) % Plt Count 192 (142-424) K/mm3 Urine 05/17/25 Range/Units 05:05 Urine Color Dark yellow (Yellow) Urine Appearance Cloudy (Clear) Urine pH 6.0 (5.0-8.5) Ur Specific [place] >= 1.030 (1.005-1.030) Urine Protein Trace (Negative) Urine Glucose (UA) Negative (Negative) OB - A/P Antepartum (1) LGA (large for gestational age) fetus affecting mother, antepartum: Status: Acute (2) Maternal obesity affecting , antepartum: Status: Acute (3) Iron deficiency anemia during : Status: Acute (4) Rh negative status during : Status: Acute Additional Plan Planning to breastfeed?: Yes Additional Information:: Admit to [facility] for scheduled elective secondary to LGA baby and narrow pelvis Reviewed risks, benefits, alternatives, expectations and possible complications of surgery. She voiced understanding of risks and possible complications. All questions addressed and answered. Consent form signed Proceed with scheduled elective
[2025-05-17] MEDS: TRANEXAMIC ACID 1,000 MG/10 ML VIAL 1000 MG (08:10)
--- NOTE | 2025-05-17 09:12 | EXP.ANES.I ---
[facility] Anesthesia Record Part I Anesthesia Record I Intake, IV Amount: 1,000 Hydration: Adequate Estimated blood loss (mL): 1,100 Urine output (mL): 100 Blood Products used (#): none Blood Pressure: 124/66 SaO2: 100 Pulse Rate: 90 Airway Patency: Patent Respiratory Rate: 16 Temperature: 98.1 F Patient is:: Awake and Stable Stable to PACU at:: 08:55
[2025-05-17 09:17] LABS: RPR W/RFX Titers Nonreactive (Nonreactive)
--- NOTE | 2025-05-17 09:31 | EXP.OP.NOTE ---
Date of procedure: 05/17/25 Pre-op Diagnosis:: 1. IUP at 39 weeks 2. LGA baby 3. Maternal obesity 4. Iron deficiency anemia in 5. Rh negative Post-op Diagnosis:: 1. IUP at 39 weeks 2. LGA baby 3. Maternal obesity 4. Iron deficiency anemia in 5. Rh negative 6. hemorrhage Procedure performed:: Elective primary low transverse section Surgeon:: Ce Bangura DO Machine Design Checker(s):: Jaymie Wakefield DO ARTIFICIAL TEETH INSPECTOR:: Otoniel Marquez Anesthesia: spinal Estimated blood loss (mL): 1,100 Clinical Note:: Ms Nash Hartley is a 19 yo at 39w0d who presents to [facility] for scheduled elective primary section. complicated by iron deficiency anemia, maternal obesity and LGA baby. Growth ultrasound 04/28/25 demonstrated EFW 96% ile with BPD and AC > 98 %ile. She was found to have a narrow pelvis on exam. She has had good care. Operative findings:: 1. Live male baby, Armand, weighing 9 lb 8 oz. Apgars 4 (1 min), 7 (5 min), 8 (10 min) 2. Grossly normal appearing uterus, bilateral fallopian tubes and ovaries Operative note:: The risks, benefits and alternatives of the procedure were reviewed with the patient. Informed consent was obtained. Patient was taken to the operating room where spinal anesthesia was placed. The patient received 2 grams of Ancef preoperatively. Patient was placed in dorsal supine position with a leftward tilt. SCDs in place. Richardson catheter was inserted and draining clear urine prior to the start of the procedure. heart tones were obtained. Patient was then prepped and draped in normal sterile fashion. Allis clamp test was performed to ensure adequate anesthesia. A Pfannenstiel skin incision was made 2 cm above pubic symphysis. This was carried through to underlying layer of fascia. Fascia was incised in midline, extended laterally with Reyes scissors. Superior aspect of fascial incision was grasped with two Olman clamps, elevated up, and rectus muscle dissected off bluntly and sharply with Reyes scissors. The retcus muscle was then in the midline and the peritoneum was entered bluntly with a digit. Peritoneal incision was then extended superiorly and inferiorly with good visualization of the bladder. Nash retractor was inserted. The lower uterine segment was incised in a transverse fashion. Large amount of clear amniotic fluid was noted. Head was delivered without difficulty. Remainder of body was delivered without difficulty. Mouth and nares were bulb suctioned. Spontaneous cry was noted. Delayed cord clamping was performed for 30 seconds. The umbilical cord was clamped and cut. The was handed to awaiting pediatric staff in stable condition. Dr. Quick was present. Apgars were 4(1 min), 7(5 min), 8 (10 min). Cord blood was obtained. Gentle traction on the umbilical cord and uterine fundal massage delivered the placenta. Placenta was intact. Placenta will be sent to pathology for review. Uterus was cleared of all clots and debris with a moist laparotomy sponge. Multiple vessels bleeding from uterine incision. She received Pitocin and TXA. Corners of the uterine incision were grasped with Allis clamps. The uterine incision was reapproximated with # 1 Vicryl suture in a running, locked stitch. Vesicouterine peritoneum was reapproximated in a running locked stitch with 0-Vicryl suture. Hemostasis was noted. Posterior cul-de-sac was cleaned with moist laparotomy sponge. Gutters cleared of all clots and debris with a moist laparotomy sponge. Reinspection of the lower uterine segment demonstrated small amount of oozing.Surgicel powder was applied over uterine incision. Hemostasis was noted. At this point all instruments and sponges were removed from the pelvis.? The peritoneum was grasped with Thania clamps x 3. The peritoneum was reapproximated with 0 Vicryl suture in a running stitch. The corners of the fascia were grasped with Olman clamps, and the fascia was reapproximated with two # 1 Vicryl suture overlapped to the right of midline. Subcutaneous tissue was irrigated with clear return of fluids. The subcutaneous tissue was reapproximated with 2-0 Vicryl. The skin was reapproximated with Insorb maureen. Steri strips and Telfa was placed over closed Pfannenstiel skin incision. At the end of the procedure, the uterus was firm with minimal vaginal bleeding. Patient tolerated the procedure well. Instrument, sponges and needle counts were correct x 2. Mom and baby were transported to recovery room in stable condition. Condition: stable Disposition: floor Specimens:: 1. Placenta and umbilical cord 2. Cord blood Complications:: None
[2025-05-17] MEDS: ACETAMINOPHEN 500MG TAB 1000 MG PO ×3 (10:03→21:58)
[2025-05-17] MEDS: OXYTOCIN/RINGERS LACTATE 30 UNITS/500 ML BAG 40 UNITS IV (10:04)
--- NOTE | 2025-05-17 10:04 | P.PNANES_ITS ---
[facility] Anesthesia Record Part II Anesthesia Record Part II Discharge Time: 09:24 Destination: Surgical Day Care (OP Surgery) PACU nurse assessment reviewed?: Yes Patient Condition:: Good Anesthesia Complications:: None Swallowing reflex intact?: Yes Airway Patency: Patent Cyanosis?: No Blood Pressure: 115/60 SaO2: 100 Respiratory Rate: 16 Pulse Rate: 85 Temperature: 98.1 F Mental Status: Alert & Oriented Pain level:: 0 Nausea and/or vomitting:: None Intake, IV Amount: 0 Hydration: Adequate
[2025-05-17 10:44] LABS: Microscopic,Cath URINE MICROSCOPIC (MICROSCOPIC)
[2025-05-17 10:46] LABS: Appearance,Urine/Cath CLEAR (Clear); Bilirubin,Cath Negative (Negative); Blood, Urine/Cath Negative (Negative); Color,Urine/Cath YELLOW (Yellow); Glucose,Urine/Cath (UA) Negative (Negative); Ketones,Urine/Cath Negative (Negative); Leukocyte Esterase,Cath Negative (Negative); Nitrate,Cath Negative (Negative); PH,Urine/Cath 6.5 (5.0-8.5); Protein,Urine/Cath Negative (Negative); Specific Gravity, Urine/Cath 1.015 (1.005-1.030); Urobilinogen,Cath 0.2 EU/dl (0.2)
[2025-05-17 10:55] LABS: Squamous Epithelial Ur./Cath Occasional #/hpf (0-5); WBC,Urine/Cath Occasional #/hpf (0-3)
[2025-05-17 10:56] LABS: Bacteria,Urine/Cath TRACE /lpf; Mucus,Urine/Cath Trace /lpf
[2025-05-17] MEDS: HYDROMORPHONE 2MG/ML SYRINGE 2 MG IV (11:19)
[2025-05-17] MEDS: ONDANSETRON 4MG/2ML VIAL 4 MG IV (12:45)
[2025-05-17] MEDS: PRENATAL MULTIVITAMIN W/IRON 1 EACH PO (15:41)
[2025-05-17] MEDS: KETOROLAC 30MG/ML VIAL 30 MG IV ×2 (15:42→21:57)
[2025-05-17] MEDS: IRON SUCROSE COMPLEX 200 MG in 0.9 % SODIUM CHLORIDE 100 ML 220 MG IV (16:42)
[2025-05-17 18:42] LABS: Hematocrit 21.8 % (37.0-47.0)
[2025-05-17 19:33] LABS: Hemoglobin 7.0 g/dL (12.2-16.2)
[2025-05-17] MEDS: SENNA 8.6MG TABLET 8.6 MG PO (21:15)
[2025-05-17] MEDS: OXYCODONE 5MG IMMEDIATE RELEASE TABLET 5 MG PO (21:15)
[2025-05-18] VITALS (20 sets, daily range): BP systolic 102–120; BP diastolic 54–68; PULSE 82–108; RESP 18; TEMP 36.7–37; O2SAT 97–100
[2025-05-18] MEDS: OXYCODONE 5MG IMMEDIATE RELEASE TABLET 5 MG PO ×3 (02:25→23:06)
[2025-05-18] MEDS: KETOROLAC 30MG/ML VIAL 30 MG IV (04:11)
[2025-05-18] MEDS: ACETAMINOPHEN 500MG TAB 1000 MG PO ×2 (04:12→11:39)
[2025-05-18 06:04] LABS: Hematocrit 21.4 % (37.0-47.0); Immature Granulocytes % 1.4 %; Mean Corpuscular HGB Conc 31.8 g/dL (31.8-35.4); Mean Corpuscular Hemoglobin 25.5 pg (27.0-31.2); Mean Corpuscular Volume 80.1 fl (81-99); Nucleated Red Blood Cells % 0 %; Platelet Count 174 K/mm3 (142-424); Red Blood Count 2.67 M/mm3 (4.20-5.40); Red Cell Distribution Width-SD 42.5 fL; White Blood Count 9.7 K/mm3 (4.5-13.0)
[2025-05-18 06:15] LABS: Hemoglobin 6.8 g/dL (12.2-16.2)
[2025-05-18] MEDS: 0.9 % SODIUM CHLORIDE 250 ML 25 ML IV (07:10)
--- NOTE | 2025-05-18 09:39 | EXP.PN ---
Subjective *Date: 05/18/25 *Time: 09:39 Interval history: Nash Hartley is a 19 yo G1, P1 day #1 following a primary low transverse delivery at 39 weeks and 0 days gestation. was complicated suspected macrosomia and elective delivery. Delivery was complicated by a hemorrhage, she was ordered two units of blood last night. Reports she has ambulated to the restroom but felt lightheaded. She is passing flatus and tolerating PO intake. She has gotten a shower this morning. -Reports pain is well-controlled -Reports she is tolerating p.o. without nausea or vomiting. -Reports her lochia is scant. -She is bottle-feeding her male infant -Voiding difficulty or dysuria. Denies chest pain shortness of breath or pain in her legs. No further complaints at this time. Exam Data for Last 24 hours Vital signs and Labs for Last 24 Hours: Temp Pulse Resp BP Pulse Ox O2 Del Method 98.4 F 96 H 18 113/60 100 Room Air 05/18/25 08:45 05/18/25 08:45 05/18/25 08:45 05/18/25 08:45 05/18/25 08:45 05/17/25 09:25 Laboratory Results - last 24 hr 05/17/25 05:27: Blood Type A Negative, Antibody Screen Negative, Crossmatch (AHG) See Detail 05/17/25 07:40: Urine Color Yellow, Urine Appearance Clear, Urine pH 6.5, Ur Specific [place] 1.015, Urine Protein Negative, Urine Glucose (UA) Negative, Urine Ketones Negative, Urine Blood Negative, Urine Nitrate Negative, Urine Bilirubin Negative, Urine Urobilinogen 0.2, Ur Leukocyte Esterase Negative, Urine RBC None, Urine WBC Occasional, Ur Squamous Epith Cells Occasional, Urine Bacteria Trace 05/17/25 18:35: Hgb 7.0 L, Hct 21.8 L 05/18/25 05:46: WBC 9.7, RBC 2.67 L, Hgb 6.8 L*, Hct 21.4 L, MCV 80.1 L, MCH 25.5 L, MCHC 31.8, RDW 14.6, Plt Count 174, MPV 11.8 H, Neut % (Auto) 68.9, Lymph % (Auto) 18.8, [place] % (Auto) 9.8 H, Eos % (Auto) 0.9, Baso % (Auto) 0.2, Neut # (Auto) 6.7, Lymph # (Auto) 1.8, [place] # (Auto) 1.0, Eos # (Auto) 0.1, Baso # (Auto) 0.0, Screen Negative, Baby's Rh Status Positive, Crossmatch (AHG) See Detail I & O for Last 24 hours: Intake & Output 05/15/25 05/16/25 05/17/25 05/18/25 23:59 23:59 23:59 23:59 Intake Total 1426 / 1426 500 / 500 Output Total 100 / 100 300 / 300 Balance 1326 / 1326 200 / 200 Weight 261 lb 15.993 oz Narrative: General: patient is alert oriented in no acute distress and responds appropriately to questions. mucous membranes and lips pale. Appears to be in minimal pain. Sitting up in the bed and doing well HEENT: NCAT, EOMI, moist mucous membranes, neck supple with full ROM Cardiovascular: RRR +S1/S2, no murmurs or rubs Pulmonary: Clear to auscultation bilaterally, nonlabored breathing, symmetric chest rise Abdominal: Fundus below the umbilicus, firm, and tenderness appropriate for the period. Extremities: trace edema, no tenderness or cyanosis noted Skin: Normal turgor, intact, warm. Negative for erythema, pallor, petechia, or lesions. well healing Neurologic: Negative for sensory or motor deficit Psychiatric: Normal affect, normal thought process, good judgment and insight, no depression or anxious mood appreciated. Assessment and Plan *Assessment and plan (1) Rh negative status during : Status: Acute Category: Medical Code(s): O26.899 - Other specified related conditions, unspecified trimester; Z67.91 - Unspecified blood type, Rh negative (2) Maternal obesity affecting , antepartum: Status: Acute Category: Medical Code(s): O99.210 - Obesity complicating , unspecified trimester (3) LGA (large for gestational age) fetus affecting mother, antepartum: Status: Acute Qualifiers: Fetus number: single or unspecified fetus Qualified Code(s): O36.60X0 - Maternal care for excessive growth, unspecified trimester, not applicable or unspecified Category: Medical Code(s): O36.60X0 - Maternal care for excessive growth, unspecified trimester, not applicable or unspecified (4) Iron deficiency anemia during : Status: Acute Category: Medical Code(s): O99.019 - Anemia complicating , unspecified trimester; D50.9 - Iron deficiency anemia, unspecified (5) Abnormal glucose tolerance in : Status: Acute Category: Medical Code(s): O99.810 - Abnormal glucose complicating (6) Asthma: Status: Acute Category: Medical Code(s): J45.909 - Unspecified asthma, uncomplicated (7) Acid reflux: Status: Acute Qualifiers: Esophagitis presence: without esophagitis Qualified Code(s): K21.9 - Gastro-esophageal reflux disease without esophagitis Category: Medical Code(s): K21.9 - Gastro-esophageal reflux disease without esophagitis (8) Elevated BP without diagnosis of hypertension: Status: Acute Category: Medical Code(s): R03.0 - Elevated blood-pressure reading, without diagnosis of hypertension (9) S/P primary low transverse : Status: Acute Category: Surgical Code(s): Z98.891 - History of uterine scar from previous surgery (10) Anemia affecting : Status: Acute Category: Medical Code(s): O99.019 - Anemia complicating , unspecified trimester (11) hemorrhage: Status: Acute Category: Medical Code(s): O72.1 - Other immediate hemorrhage Plan #Elective CD #Suspected macrosomia #/ intraop hemorrhage #Rh negative Stable. POD#1 s/p PLTCS -Doing well. VSS. Serial lochia and fundal checks. -Continue with perineal ice packs for discomfort -Hemoglobin: 8.5--> 6.8 -S/P two units PRBCs -A-/antibody negative. Baby is positive. Given PPH and Rh neg- KB test ordered. rhogam adminstered -bottle feeding, male infant -Desires circumcision. I discussed this was an elective procedure, completed for cosmetic reasons. Reviewed the r/b with the pt. Discussed bleeding, infection and injury to the structure including the tip of the penis. Discussed removing too much or too little foreskin. consents signed and risks reviewed -Contraception: undecided -Follow-up 2 weeks for routine visit -Dispo: home in 1-3 days pending mother/ status
[2025-05-18] MEDS: IBUPROFEN 400 MG TABLET 800 MG PO ×2 (11:40→18:02)
[2025-05-18 12:23] LABS: Hematocrit 25.4 % (37.0-47.0)
[2025-05-18 12:31] LABS: Hemoglobin 8.1 g/dL (12.2-16.2)
[2025-05-18] MEDS: SIMETHICONE 80MG CHEWABLE TABLET 160 MG PO (18:02)
[2025-05-18] MEDS: SENNA 8.6MG TABLET 8.6 MG PO (18:02)
[2025-05-18] MEDS: PRENATAL MULTIVITAMIN W/IRON 1 EACH PO (18:02)
[2025-05-18] MEDS: RHO(D) IMMUNE GLOBULIN 1,500 UNIT (300MCG) SYRINGE 300 MCG IM (23:38)
[2025-05-19] MEDS: IBUPROFEN 400 MG TABLET 800 MG PO (04:29)
[2025-05-19] MEDS: SENNA 8.6MG TABLET 8.6 MG PO (04:29)
[2025-05-19 08:04] VITALS: BP 136/77; PULSE 94; RESP 18; TEMP 37; O2SAT 100
--- NOTE | 2025-05-19 12:46 | P.DS_ITS ---
General Admission date:: 05/17/25 Discharge date: 05/19/25 HPI HPI HPI: Ms Nash Hartley is a 19 yo at 39w0d who presents to [facility] for scheduled elective primary section. complicated by iron deficiency anemia, maternal obesity and LGA baby. Growth ultrasound 04/28/25 demonstrated EFW 96%ile with BPD and AC > 98 %ile. She was found to have a narrow pelvis on exam. She has had good care. Hospital Course Hospital Course Hospital Course: Nash Hartley is a 19-year-old G1, P1 postoperative day #2 from a primary low- transverse delivery at 39 weeks and 0 days gestation. She delivered a live viable male infant weighing 9 pounds 8 ounces. Delivery occurred on 1223 at 0804. Apgars were 4 7 and 9. Delivery and course were complicated by hemorrhage with a QBL of over 1800. She received 2 units of packed red blood cells. Her blood type was a negative, she received RhoGAM given a infant blood type of Rh+. She also had a KB stain completed, this is a send out lab. This morning she is doing excellent, she has had a shower and she is up ambulating around the room. The is doing well. She has done well and has remained afebrile with her at her hospitalization. She is eating and drinking and ambulating. She is bottlefeeding. Her lochia is normal. She has A Rh - blood, she is rubella immune and was group B streptococcus negative. Of note her ED PS score was significantly elevated. She is currently in counseling/therapy with [facility]. Will continue to follow this closely She will be discharged home to follow-up with Dr. Mills in 2 weeks time. She will continue with her vitamins and iron. She has a prescription for Percocet and will continue these at home. She will take ibuprofen as well. She was given the usual instructions with respect to limiting her activity, driving and sexual activity. She was given instructions with respect to wound care. Her condition on discharge is stable and improved. Exam Data for Last 24 hours Vital signs and Labs for Last 24 Hours: Temp Pulse Resp BP Pulse Ox O2 Del Method 98.6 F 94 H 18 136/77 100 Room Air 05/19/25 08:04 05/19/25 08:04 05/19/25 08:04 05/19/25 08:04 05/19/25 08:04 05/19/25 08:04 Laboratory Results - last 24 hr 05/17/25 05:27: Crossmatch (AHG) See Detail 05/18/25 05:49: KB Hemoglobin Positive I & O for Last 24 hours: Intake & Output 05/16/25 05/17/25 05/18/25 05/19/25 23:59 23:59 23:59 23:59 Intake Total 1426 / 1426 1110.417 / 1110.417 Output Total 100 / 100 300 / 300 Balance 1326 / 1326 810.417 / 810.417 Weight 261 lb 15.993 oz Microbiology Reports for the Last 24 Hours: Microbiology 05/17/25 05:05 Urine,Clean Catch Urine Culture - Final Multiple organisms, suggests contamination. Results Data Completed and Pending Labs on day of discharge: Labs from last 24 hours 05/18/25 05/17/25 05:49 05:27 KB Hemoglobin Positive Crossmatch (AHG) See Detail DS: Diagnosis Discharge Diagnosis (1) Rh negative status during : Status: Acute Code(s): O26.899 - Other specified related conditions, unspecified trimester; Z67.91 - Unspecified blood type, Rh negative (2) Maternal obesity affecting , antepartum: Status: Acute Code(s): O99.210 - Obesity complicating , unspecified trimester (3) LGA (large for gestational age) fetus affecting mother, antepartum: Status: Acute Code(s): O36.60X0 - Maternal care for excessive growth, unspecified trimester, not applicable or unspecified Qualifiers: Fetus number: single or unspecified fetus Qualified Code(s): O36.60X0 - Maternal care for excessive growth, unspecified trimester, not applicable or unspecified (4) Iron deficiency anemia during : Status: Acute Code(s): O99.019 - Anemia complicating , unspecified trimester; D50.9 - Iron deficiency anemia, unspecified (5) Abnormal glucose tolerance in : Status: Acute Code(s): O99.810 - Abnormal glucose complicating (6) Asthma: Status: Acute Code(s): J45.909 - Unspecified asthma, uncomplicated (7) Acid reflux: Status: Acute Code(s): K21.9 - Gastro-esophageal reflux disease without esophagitis Qualifiers: Esophagitis presence: without esophagitis Qualified Code(s): K21.9 - Gastro-esophageal reflux disease without esophagitis (8) Elevated BP without diagnosis of hypertension: Status: Acute Code(s): R03.0 - Elevated blood-pressure reading, without diagnosis of hypertension (9) S/P primary low transverse : Status: Acute Code(s): Z98.891 - History of uterine scar from previous surgery (10) Anemia affecting : Status: Acute Code(s): O99.019 - Anemia complicating , unspecified trimester (11) hemorrhage: Status: Acute Code(s): O72.1 - Other immediate hemorrhage Meds Home Medications and Allergies Home Medications ?Medication ?Instructions ?Recorded ?Confirmed ?Type vits no.130-ferrous fum 1 tab PO DAILY 05/17/25 History 27 mg iron-folic acid 800 mcg tablet ( Vitamin) ferrous sulfate 325 mg (65 mg 325 mg PO DAILY 03/31/25 05/17/25 History iron) tablet acetaminophen 500 mg tablet 500 mg PO Q6H PRN fever or pain 05/18/25 Rx #30 tabs ferrous sulfate 325 mg (65 mg 325 mg PO DAILY #30 tabs 05/18/25 Rx iron) tablet,delayed release ibuprofen 800 mg tablet 800 mg PO Q8H PRN pain #60 t abs 05/18/25 Rx oxycodone 5 mg tablet 5 mg PO Q8H PRN pain #20 tab s 05/18/25 Rx sennosides 8.6 mg tablet (Senna 8.6 mg PO BIDP PRN Con stipation 05/18/25 Rx Lax) #60 tabs simethicone 125 mg tablet 125 mg PO DAILY PRN abdomina l 05/18/25 Rx distention #60 tabs New Prescriptions to Start Prescriptions: acetaminophen Ashu,Jaymie ferrous sulfate Ashu,Jaymie ibuprofen Jaymie Wakefield oxycodone Jaymie Wakefield sennosides [Senna Lax] Ashu,Jaymie simethicone Jaymie Wakefield Allergies Allergy/AdvReac Type Severity Reaction Status Date / Time No Known Allergies Allergy Verified 05/17/25 05:25 Discharge Plan Disposition Patient Disposition: Home, Self-Care Discharge Order Discharge Orders: Discharge Order (Routine); Ordered 05/19/25 Ordered By: Jaymie Wakefield Follow up Plan Follow up with: Ce Bangura DO [Staff Physician, DEPUTY PROSECUTING ATTORNEY] - 2 weeks Referral Note: Call the office tomorrow or friday to be seen 2 weeks after delivery. Prescriptions/Medication Reconciliation: New sennosides [Senna Lax] 8.6 mg Tablet 8.6 mg PO BIDP PRN (Reason: Constipation) Qty: 60 2RF ibuprofen 800 mg tablet 800 mg PO Q8H PRN (Reason: pain) Qty: 60 2RF acetaminophen 500 mg tablet 500 mg PO Q6H PRN (Reason: fever or pain) Qty: 30 3RF simethicone 125 mg tablet 125 mg PO DAILY PRN (Reason: abdominal distention) Qty: 60 2RF ferrous sulfate 325 mg (65 mg iron) tablet,delayed release (DR/EC) 325 mg PO DAILY Qty: 30 3RF oxycodone 5 mg tablet 5 mg PO Q8H PRN (Reason: pain) Qty: 20 0RF Continued ferrous sulfate 325 mg (65 mg iron) tablet 325 mg PO DAILY Vitamin 27 mg iron- 800 mcg tablet 1 tab PO DAILY Patient Comments: TAKE 1 TABLET BY MOUTH ONCE A DAY Problem Reconciliation Problems Reviewed?: Yes Patient Discharge Instructions ACTIVITY: Continue current activity DIET: regular diet Additional Instructions: Congratulations on the delivery of your sweet baby boy. It is my privilege to be your doctor and I am so thankful I could be a part of your special day. Discharge: 1. Take 800 mg Ibuprofen every 8 hours as needed for pain. You can also take 500-1000mg of Tylenol in between doses, every 6-8 hours. Use prescription pain medicine for pain you feel in between 8 hour interval. -No driving while taking narcotic pain medications. In order to drive you should be able to slam on the brakes without significant abdominal pain. 2. Wean from prescription pain medicine first. Do not drive while taking it. 3. Prescription pain medicine can make you constipated. Colace can be taken 1-2 times per day as you need. Make sure to drink at least 8 cups of water per day. 4. Iron supplements can make you constipated. Colace can be taken 1-2 times per day as you need. You can take iron tablets every other day if constipation is too bad. 5. Nothing in the vagina for 6 weeks - no intercourse, douching, tampons. No tub baths or swimming pools 6. Do not lift greater than 15 pounds for 6 weeks, this is the equivalent of 2 gallons of milk. 7. Reasons to return to L&D or call On-Call doctor - fever (greater than 100.4) - heavy vaginal bleeding (soaking through 1 pad in less than 2 hours or passing clots that are egg sized) - vaginal discharge (malodorous and/or purulent) - bleeding or discharge from her incision - severe headaches, leg tenderness/edema, or any other symptoms that warrant immediate medical attention. 8. depression/blues - Normal to feel anxious/overwhelmed for first 2 weeks - Talk to your doctor if: anxiety lasts over 2 weeks, trouble bonding with baby, withdrawing from other family members, thoughts of harming yourself or others Blood pressure and preeclampsia instructions - Please take your blood pressure twice daily. - Please call if greater than 2 values are higher than: 150 systolic (the top number) or 100 diastolic (the bottom number). - Please go to the emergency room or labor and delivery triage if any value is higher than: 160 systolic (the top number) or 110 diastolic (the bottom number). - Please call if unrelenting headache (does not go away with rest or Tylenol or ibuprofen), changes in vision (spots, floaters, flashes of light), chest pain, shortness of breath, or right upper quadrant (liver) abdominal pain. Jaymie Wakefield DO [facility] [phone] *Nothing in the Vagina for 6 weeks* *No strenuous activity* *No heavy lifting* *No tub baths until okay's by MD* Patient Instructions: Depression, Hemorrhage, DI for , DI for Pre-eclampsia, [facility] Post Discharge Instructions Print Language: [place]an Providers Primary Care Provider: Vidhya Martínez Admit Provider: Ce Bangura Attending Provider: Ce Bangura
== END 2025-05-19 13:45 | disposition home or self-care (01) | DRG 787 ==
PROVIDERS: Admitting Provider Obstetrics & Gynecology; PCP Nurse Practitioner; Visit Provider Obstetrics & Gynecology
PROC: 10D00Z1 Extraction of Products of Conception, Low, Open Approach (ICD-10-PCS; CPT 59514; principal; 2025-05-17 07:30)
DX: O36.63X0 Maternal care for excessive fetal growth, third trimester, not applicable or unspecified (principal); O72.1 Other immediate postpartum hemorrhage; Z3A.39 39 weeks gestation of pregnancy; Z37.0 Single live birth; D50.9 Iron deficiency anemia, unspecified; O33.1 Maternal care for disproportion due to generally contracted pelvis; O99.214 Obesity complicating childbirth; O99.02 Anemia complicating childbirth; O26.893 Other specified pregnancy related conditions, third trimester; O99.814 Abnormal glucose complicating childbirth; O99.52 Diseases of the respiratory system complicating childbirth; J45.909 Unspecified asthma, uncomplicated; O99.62 Diseases of the digestive system complicating childbirth; K21.9 Gastro-esophageal reflux disease without esophagitis; R03.0 Elevated blood-pressure reading, without diagnosis of hypertension; Z67.11 Type A blood, Rh negative; Z23 Encounter for immunization
CPT/HCPCS: 36415; 36430; 51702; 59025; 81001; 85014; 85018; 85025; 85460; 85461; 86592; 86850; 87086; J0690; J1171; J1756; J1885; J2405; J2790; J7050; J7120; P9016